=== PATIENT | female | born 1935 | race Caucasian/White ===

== ENCOUNTER → 2020-06-14 14:04 | Outpatient (BNVA) | payer MEDICARE, BC, SELFPAY | PROVIDERS: PCP Family Medicine; Visit Provider Internal Medicine | DX: I48.20 Chronic atrial fibrillation, unspecified (principal); Z51.81 Encounter for therapeutic drug level monitoring; Z79.01 Long term (current) use of anticoagulants | CPT/HCPCS: 85610 ==

== ENCOUNTER → 2020-06-28 13:38 | Outpatient (BNVA) | payer MEDICARE, BC, SELFPAY | PROVIDERS: PCP Family Medicine; Visit Provider Internal Medicine | DX: I48.20 Chronic atrial fibrillation, unspecified (principal); Z79.01 Long term (current) use of anticoagulants; Z51.81 Encounter for therapeutic drug level monitoring | CPT/HCPCS: 85610; 99211 ==

== ENCOUNTER → 2020-07-19 13:10 | Outpatient (BNVA) | payer MEDICARE, BC, SELFPAY | PROVIDERS: PCP Family Medicine; Visit Provider Internal Medicine | DX: I48.20 Chronic atrial fibrillation, unspecified (principal); Z51.81 Encounter for therapeutic drug level monitoring; Z79.01 Long term (current) use of anticoagulants | CPT/HCPCS: 85610; 99211 ==

== ENCOUNTER 2020-08-08 10:02 | Outpatient (REF) | payer MEDICARE, BC, SELFPAY ==
[2020-08-08 12:45] LABS: Glucose Urine UA NEG (NEG); Leukocyte Esterase Urine 3+ (NEG); Nitrite Urine NEG (NEG); Specific Gravity - Urine >= 1.030 (1.005-1.025); Urine Blood 2+ (NEG); Urine Ketones NEG (NEG); Urine Protein 1+ MG/DL (NEG-TRACE)
[2020-08-08 12:48] LABS: Appearance Urine CLOUDY; Color Urine YELLOW
[2020-08-08 12:59] LABS: Bacteria Urine 3+ /LPF; Mucus Urine 1+ /LPF; Squamous Epithelial Cell Urine 1+ /LPF; WBC Urine TNTC /HPF (0-4)
[2020-08-08 13:21] LABS: Creatinine Urine 93.99 mg/dL; Protein/Creatinine Ratio, Ur 0.82 (<0.2); Total Protein Urine Random 77 mg/dL (<12)
== END 2020-08-08 10:03 | disposition home or self-care (01) ==
LOC: HO.LAB 10:02
PROVIDERS: PCP Family Medicine; Visit Provider Family Medicine
DX: E11.36 Type 2 diabetes mellitus with diabetic cataract (principal)
CPT/HCPCS: 81001; 84156

== ENCOUNTER → 2020-08-16 13:05 | Outpatient (BNVA) | payer MEDICARE, BC, SELFPAY | PROVIDERS: PCP Family Medicine; Visit Provider Internal Medicine | DX: I48.20 Chronic atrial fibrillation, unspecified (principal); Z51.81 Encounter for therapeutic drug level monitoring; Z79.01 Long term (current) use of anticoagulants | CPT/HCPCS: 85610; 99211 ==

== ENCOUNTER → 2020-08-23 13:05 | Outpatient (BNVA) | payer MEDICARE, BC, SELFPAY | PROVIDERS: PCP Family Medicine; Visit Provider Internal Medicine | DX: I48.20 Chronic atrial fibrillation, unspecified (principal); Z51.81 Encounter for therapeutic drug level monitoring; Z79.01 Long term (current) use of anticoagulants | CPT/HCPCS: 85610; 99211 ==

== ENCOUNTER → 2020-09-13 13:24 | Outpatient (BNVA) | payer MEDICARE, BC, SELFPAY | PROVIDERS: PCP Family Medicine; Visit Provider Internal Medicine | DX: I48.20 Chronic atrial fibrillation, unspecified (principal); Z51.81 Encounter for therapeutic drug level monitoring; Z79.01 Long term (current) use of anticoagulants | CPT/HCPCS: 85610; 99211 ==

== ENCOUNTER → 2020-09-27 13:25 | Outpatient (BNVA) | payer MEDICARE, BC, SELFPAY | PROVIDERS: PCP Family Medicine; Visit Provider Internal Medicine | DX: Z95.2 Presence of prosthetic heart valve (principal); Z79.01 Long term (current) use of anticoagulants; Z51.81 Encounter for therapeutic drug level monitoring | CPT/HCPCS: 85610; 99211 ==

== ENCOUNTER → 2020-11-01 13:02 | Outpatient (BNVA) | payer MEDICARE, BC, SELFPAY | PROVIDERS: PCP Family Medicine; Visit Provider Internal Medicine | DX: I48.20 Chronic atrial fibrillation, unspecified (principal); Z51.81 Encounter for therapeutic drug level monitoring; Z79.01 Long term (current) use of anticoagulants | CPT/HCPCS: 85610; 99211 ==

== ENCOUNTER → 2020-11-22 13:08 | Outpatient (BNVA) | payer MEDICARE, BC, SELFPAY | PROVIDERS: PCP Family Medicine; Visit Provider Internal Medicine | DX: I48.20 Chronic atrial fibrillation, unspecified (principal); Z51.81 Encounter for therapeutic drug level monitoring; Z79.01 Long term (current) use of anticoagulants | CPT/HCPCS: 85610; 99211 ==

== ENCOUNTER → 2020-12-15 13:02 | Outpatient (BNVA) | payer MEDICARE, BC, SELFPAY | PROVIDERS: PCP Internal Medicine; Visit Provider Internal Medicine | DX: I48.20 Chronic atrial fibrillation, unspecified (principal); Z79.01 Long term (current) use of anticoagulants; Z51.81 Encounter for therapeutic drug level monitoring | CPT/HCPCS: 85610; 99211 ==

== ENCOUNTER → 2020-12-29 13:03 | Outpatient (BNVA) | payer MEDICARE, BC, SELFPAY | PROVIDERS: PCP Internal Medicine; Visit Provider Internal Medicine | DX: I48.20 Chronic atrial fibrillation, unspecified (principal); Z79.01 Long term (current) use of anticoagulants; Z51.81 Encounter for therapeutic drug level monitoring | CPT/HCPCS: 85610; 99211 ==

== ENCOUNTER → 2021-01-12 13:03 | Outpatient (BNVA) | payer MEDICARE, BC, SELFPAY | PROVIDERS: PCP Family Medicine; Visit Provider Internal Medicine | DX: I48.20 Chronic atrial fibrillation, unspecified (principal); Z79.01 Long term (current) use of anticoagulants; Z51.81 Encounter for therapeutic drug level monitoring | CPT/HCPCS: 85610; 99211 ==

== ENCOUNTER → 2021-02-03 09:24 | Outpatient (REF) | payer MEDICARE, BC, SELFPAY ==
--- NOTE | 2021-02-03 09:30 | CA_ITS ---
Transthoracic Echocardiogram Patient (Last, First, Middle): Lilliana Reyes E Gender: Female Date of : 1935 Age: 85 Procedure Date: 02/03/2021 Procedure Type: Transthoracic Echocardiogram Location: OP Height: 160.02 cm Weight: 63.96 kg BSA: 1.67 m2 Heart Rate: bpm BP: 124 / 68 mmHg [facility]: [facility]UZ Referring MD: Quang Carreon MD Symptoms: Z95.2 S/P AVR, CHRONIC AFIB I48.2 I10 HTN Study Quality: Good ECG Rhythm: Atrial Fibrillation Conclusions: - The left ventricular systolic function is normal. The visually estimated ejection fraction is between 60-65%. - A bioprosthetic aortic valve is present. The prosthetic aortic valve appears to be functioning normally. - There is moderate mitral annular calcification. There is mild mitral valve regurgitation. Findings Left Ventricle Normal left ventricular cavity size. There is normal left ventricular wall thickness. The left ventricular systolic function is normal. The visually estimated ejection fraction is between 60-65%. There is no evidence of regional wall motion abnormalities. Diastolic function is indeterminate on the basis of available data. Right Ventricle Normal right ventricular cavity size and systolic function. Atria The left atrium is mildly dilated. The right atrium is moderately dilated. Aortic Valve A bioprosthetic aortic valve is present. The prosthetic aortic valve appears to be functioning normally. The mean gradient is 6 mmHg. There is trace (trivial) aortic valve regurgitation. Mitral Valve There is moderate mitral annular calcification. There is mild mitral valve regurgitation. There is no mitral valve stenosis. Pulmonic Valve The pulmonic valve was not well visualized. Tricuspid Valve Normal tricuspid valve structure. There is mild tricuspid valve regurgitation. The pulmonary artery systolic pressure is normal. Great Vessels The aorta was not well visualized. Venous The inferior vena cava is normal in size and collapses greater than 50% with inspiration. Pericardium/Pleural There is no evidence of pericardial effusion. Prior Study Comparison No significant change compared to prior study dated: 12/16/2019. Measurements 2D Linear Measurements IVSd: 1.00 0.6-0.9/0.6-1.0 cm LVIDd: 4.09 3.9-5.3/4.2-5.9 cm LVIDd Index: 2.45 2.4-3.2/2.2-3.1 cm/m2 LVIDs: 3.14 2.0-3.6 cm LVPWd: 0.92 0.7-1.1 cm LA Diam: 4.00 2.7-3.8/3.0-4.0 cm LAIDs Index: 2.40 1.5-2.3 cm/m2 LV Mass: 153.60 67-162/88-224 g LV Mass Index: 91.97 43-95/49-115 g/m2 LVOT Diam: 1.70 3.0+(-)1.3 cm 2D Systolic Function EF 4C: 59.00 >55% EF 2C: 64.10 >55% EF BiP: 62.30 >55% Mitral Valve MV Pk E: 0.66 MV Decel Time: 170.00 E'Lateral: 8.05 E'Medial: 6.58 E/E' Med: 10.10 E/E' Lat: 8.20 PHT: 50.00 MVA PHT: 4.40 Decel [place]: 3.92 Aortic Valve AoV Pk Marcio: 1.62 AoV Mn Marcio: 1.11 AoV VTI: 0.37 AoV Pk Grad: 10.00 Aov Mn Grad: 6.00 MANI Cont.VTI: 0.85 LVOT LVOT Pk Marcio: 0.65 LVOT Mn Marcio: 0.44 LVOT VTI: 0.14 LVOT Pk Grad: 2.00 LVOT Mn Grad: 1.00 LVOT Diam: 1.70 LVOT Area: 2.27 Diastolic Function MV Pk E: 0.66 E'Medial: 6.58 E/E' Med: 10.10 E' Laterial: 8.05 E/E' Lat: 8.20 Tricuspid Valve TR Pk Marcio: 2.35 TR Pk Grad: 22.00 RA Press: 3.00 RVSP: 25.00 Updated in Other Vendor System with Status of Final Chemo Johnson MD electronically signed on 02/05/2021 12:56:40 PM with status of Final
== END ==
LOC: HO.CARD 09:24
PROVIDERS: Visit Provider Internal Medicine Cardiovascular Disease
DX: I10 Essential (primary) hypertension (principal); Z95.2 Presence of prosthetic heart valve
CPT/HCPCS: 93306

== ENCOUNTER → 2021-02-15 13:02 | Outpatient (BNVA) | payer MEDICARE, BC, SELFPAY | PROVIDERS: PCP Family Medicine; Visit Provider Internal Medicine | DX: I48.20 Chronic atrial fibrillation, unspecified (principal); Z51.81 Encounter for therapeutic drug level monitoring; Z79.01 Long term (current) use of anticoagulants | CPT/HCPCS: 85610; 99211 ==

== ENCOUNTER → 2021-02-28 13:09 | Outpatient (BNVA) | payer MEDICARE, BC, SELFPAY | PROVIDERS: PCP Family Medicine; Visit Provider Internal Medicine Cardiovascular Disease | DX: I48.20 Chronic atrial fibrillation, unspecified (principal); Z95.2 Presence of prosthetic heart valve | CPT/HCPCS: 93005; 99212 ==

== ENCOUNTER → 2021-03-16 13:01 | Outpatient (BNVA) | payer MEDICARE, BC, SELFPAY | PROVIDERS: PCP Family Medicine; Visit Provider Internal Medicine | DX: I48.20 Chronic atrial fibrillation, unspecified (principal); Z51.81 Encounter for therapeutic drug level monitoring; Z79.01 Long term (current) use of anticoagulants | CPT/HCPCS: 85610; 99211 ==

== ENCOUNTER → 2021-04-13 13:04 | Outpatient (BNVA) | payer MEDICARE, BC, SELFPAY | PROVIDERS: PCP Family Medicine; Visit Provider Internal Medicine | DX: I48.20 Chronic atrial fibrillation, unspecified (principal); Z51.81 Encounter for therapeutic drug level monitoring; Z79.01 Long term (current) use of anticoagulants | CPT/HCPCS: 85610; 99211 ==

== ENCOUNTER 2021-05-04 12:53 | Outpatient (REF) | payer MEDICARE, BC, SELFPAY ==
--- NOTE | ~2021-05-04 | MM_ITS ---
EXAMINATION: MM SCREENING DIGITAL BREAST TOMOSYNTHESIS, BILATERAL CLINICAL INFORMATION: Screening. Asymptomatic. The lifetime risk of breast cancer based on the Tyrer-Cuzick Model is 0.3%. COMPARISON: Mammography: May 02, 2020 and studies dating back to February 12, 2012 TECHNIQUE: Digital breast tomosynthesis is performed in both the craniocaudal and mediolateral oblique views along with computer-aided detection (CAD). Synthesized 2D images are generated from the tomosynthesis. FINDINGS: The breasts are almost entirely fatty (ACR BI-RADS breast composition Category a). There are no significant masses, abnormal calcifications, or other abnormalities. MM/MM tomosynthesis screening BI IMPRESSION: There are no significant changes from prior study. ASSESSMENT: BI-RADS 1: Negative RECOMMENDATION: Routine annual mammography screening. This patient's information was entered into a reminder system with a target due date for their next mammogram.
== END 2021-05-04 12:54 | disposition home or self-care (01) ==
LOC: HO.MAMMO 12:53
PROVIDERS: Visit Provider Family Medicine
DX: Z12.31 Encounter for screening mammogram for malignant neoplasm of breast (principal)
CPT/HCPCS: 77063; 77067

== ENCOUNTER → 2021-05-11 13:04 | Outpatient (BNVA) | payer MEDICARE, BC, SELFPAY | PROVIDERS: PCP Family Medicine; Visit Provider Internal Medicine | DX: I48.20 Chronic atrial fibrillation, unspecified (principal); Z51.81 Encounter for therapeutic drug level monitoring; Z79.01 Long term (current) use of anticoagulants | CPT/HCPCS: 85610; 99211 ==

== ENCOUNTER → 2021-06-08 13:06 | Outpatient (BNVA) | payer MEDICARE, BC, SELFPAY | PROVIDERS: PCP Family Medicine; Visit Provider Internal Medicine | DX: I48.20 Chronic atrial fibrillation, unspecified (principal); Z51.81 Encounter for therapeutic drug level monitoring; Z79.01 Long term (current) use of anticoagulants | CPT/HCPCS: 85610; 99211 ==

== ENCOUNTER → 2021-06-29 13:09 | Outpatient (BNVA) | payer MEDICARE, BC, SELFPAY | PROVIDERS: PCP Family Medicine; Visit Provider Internal Medicine | DX: I48.20 Chronic atrial fibrillation, unspecified (principal); Z51.81 Encounter for therapeutic drug level monitoring; Z79.01 Long term (current) use of anticoagulants | CPT/HCPCS: 85610; 99211 ==

== ENCOUNTER → 2021-07-27 12:54 | Outpatient (BNVA) | payer MEDICARE, BC, SELFPAY | PROVIDERS: PCP Family Medicine; Visit Provider Internal Medicine | DX: I48.20 Chronic atrial fibrillation, unspecified (principal); Z51.81 Encounter for therapeutic drug level monitoring; Z79.01 Long term (current) use of anticoagulants | CPT/HCPCS: 85610; 99211 ==

== ENCOUNTER → 2021-08-10 13:32 | Outpatient (BNVA) | payer MEDICARE, BC, SELFPAY | PROVIDERS: PCP Family Medicine; Visit Provider Internal Medicine | DX: I48.20 Chronic atrial fibrillation, unspecified (principal); Z51.81 Encounter for therapeutic drug level monitoring; Z79.01 Long term (current) use of anticoagulants | CPT/HCPCS: 85610; 99211 ==

== ENCOUNTER → 2021-08-24 13:01 | Outpatient (BNVA) | payer MEDICARE, BC, SELFPAY | PROVIDERS: PCP Family Medicine; Visit Provider Internal Medicine | DX: I48.20 Chronic atrial fibrillation, unspecified (principal); Z51.81 Encounter for therapeutic drug level monitoring; Z79.01 Long term (current) use of anticoagulants | CPT/HCPCS: 85610; 99211 ==

== ENCOUNTER → 2021-09-14 13:04 | Outpatient (BNVA) | payer MEDICARE, BC, SELFPAY | PROVIDERS: PCP Family Medicine; Visit Provider Internal Medicine | DX: I48.20 Chronic atrial fibrillation, unspecified (principal); Z51.81 Encounter for therapeutic drug level monitoring; Z79.01 Long term (current) use of anticoagulants | CPT/HCPCS: 85610; 99211 ==

== ENCOUNTER → 2021-10-05 13:05 | Outpatient (BNVA) | payer MEDICARE, BC, SELFPAY | PROVIDERS: PCP Family Medicine; Visit Provider Internal Medicine | DX: I48.20 Chronic atrial fibrillation, unspecified (principal); Z51.81 Encounter for therapeutic drug level monitoring; Z79.01 Long term (current) use of anticoagulants | CPT/HCPCS: 85610; 99211 ==

== ENCOUNTER → 2021-11-02 13:01 | Outpatient (BNVA) | payer MEDICARE, BC, SELFPAY | PROVIDERS: PCP Family Medicine; Visit Provider Internal Medicine | DX: I48.20 Chronic atrial fibrillation, unspecified (principal); Z51.81 Encounter for therapeutic drug level monitoring; Z79.01 Long term (current) use of anticoagulants | CPT/HCPCS: 85610; 99211 ==

== ENCOUNTER → 2021-11-16 13:08 | Outpatient (BNVA) | payer MEDICARE, BC, SELFPAY | PROVIDERS: PCP Family Medicine; Visit Provider Internal Medicine | DX: I48.20 Chronic atrial fibrillation, unspecified (principal); Z51.81 Encounter for therapeutic drug level monitoring; Z79.01 Long term (current) use of anticoagulants | CPT/HCPCS: 85610; 99211 ==

== ENCOUNTER → 2021-11-30 14:15 | Outpatient (BNVA) | payer MEDICARE, BC, SELFPAY | PROVIDERS: PCP Family Medicine; Visit Provider Internal Medicine | DX: I48.20 Chronic atrial fibrillation, unspecified (principal); Z51.81 Encounter for therapeutic drug level monitoring; Z79.01 Long term (current) use of anticoagulants | CPT/HCPCS: 85610; 99211 ==

== ENCOUNTER → 2021-12-21 14:09 | Outpatient (BNVA) | payer MEDICARE, BC, SELFPAY | PROVIDERS: PCP Family Medicine; Visit Provider Internal Medicine | DX: I48.20 Chronic atrial fibrillation, unspecified (principal); Z79.01 Long term (current) use of anticoagulants; Z51.81 Encounter for therapeutic drug level monitoring | CPT/HCPCS: 85610; 99211 ==

== ENCOUNTER → 2022-01-04 14:00 | Outpatient (BNVA) | payer MEDICARE, BC, SELFPAY | PROVIDERS: PCP Family Medicine; Visit Provider Internal Medicine | DX: I48.0 Paroxysmal atrial fibrillation (principal); Z79.01 Long term (current) use of anticoagulants; Z51.81 Encounter for therapeutic drug level monitoring | CPT/HCPCS: 85610; 99211 ==

== ENCOUNTER → 2022-01-18 13:43 | Outpatient (BNVA) | payer MEDICARE, BC, SELFPAY | PROVIDERS: PCP Family Medicine; Visit Provider Internal Medicine | DX: I48.20 Chronic atrial fibrillation, unspecified (principal); Z79.01 Long term (current) use of anticoagulants; Z51.81 Encounter for therapeutic drug level monitoring | CPT/HCPCS: 85610; 99211 ==

== ENCOUNTER → 2022-02-01 13:36 | Outpatient (BNVA) | payer MEDICARE, BC, SELFPAY | PROVIDERS: PCP Family Medicine; Visit Provider Internal Medicine | DX: I48.20 Chronic atrial fibrillation, unspecified (principal); Z79.01 Long term (current) use of anticoagulants; Z51.81 Encounter for therapeutic drug level monitoring | CPT/HCPCS: 85610; 99211 ==

== ENCOUNTER → 2022-02-08 13:34 | Outpatient (REF) | payer MEDICARE, BC, SELFPAY ==
--- NOTE | 2022-02-08 13:38 | CA_ITS ---
Transthoracic Echocardiogram Patient (Last, First, Middle): Lilliana Reyes E Gender: Female Date of : 1935 Age: 86 Procedure Date: 02/08/2022 Procedure Type: Transthoracic Echocardiogram Location: OP Height: 160.02 cm Weight: 63.96 kg BSA: 1.67 m2 Heart Rate: bpm BP: 132 / 64 mmHg Welding Rod Coater: MARY Referring MD: Quang Carreon MD Air Route Traffic Controller: Quang Carreon MD Symptoms: Z95.2 - Presence of prosthetic heart valve Study Quality: Adequate ECG Rhythm: Atrial Fibrillation Conclusions: - 1. Normal LV systolic function 2. Biatrial enlargement right greater than left 3. Normally function bioprosthetic aortic valve with mild periprosthetic aortic regurgitation 4. Normal RV systolic pressure 5. No gross pericardial effusion Findings Left Ventricle Normal left ventricular size, thickness, and systolic function. The visually estimated ejection fraction is between 65-70%. Diastolic function is indeterminate on the basis of available data. Right Ventricle Normal right ventricular cavity size and systolic function. Atria The left atrium is mildly dilated. Interatrial shunt cannot be excluded. The right atrium is moderately dilated. Aortic Valve A bioprosthetic aortic valve is present. The prosthetic aortic valve appears to be functioning normally. The mean gradient is 6 mmHg. There is mild aortic valve regurgitation. The aortic valve regurgitation jet is eccentric. The regurgitation appears to be richelle-prosthetic. Mitral Valve There is mild anterior and posterior mitral leaflet thickening. There is mild mitral annular calcification. There is trace mitral valve regurgitation. Pulmonic Valve The pulmonic valve is likely normal. There is trace pulmonic valve regurgitation. Tricuspid Valve Normal tricuspid valve structure. There is mild tricuspid valve regurgitation. The right ventricular systolic pressure is normal. The right ventricular systolic pressure is 28 mmHg. Normal right atrial pressure. There is no evidence of pulmonary hypertension. Great Vessels All visible segments of the aorta are normal in size. The pulmonary artery was not well visualized. Venous The inferior vena cava is normal in size and collapses greater than 50% with inspiration. Pericardium/Pleural There is no evidence of pericardial effusion. Prior Study Comparison Changes noted compared to prior study dated: 02/03/2021. Mild aortic regurgitation is noted Measurements 2D Linear Measurements IVSd: 0.89 0.6-0.9/0.6-1.0 cm LVIDd: 3.79 3.9-5.3/4.2-5.9 cm LVIDd Index: 2.27 2.4-3.2/2.2-3.1 cm/m2 LVIDs: 2.49 2.0-3.6 cm LVPWd: 0.90 0.7-1.1 cm LA Diam: 3.60 2.7-3.8/3.0-4.0 cm LAIDs Index: 2.16 1.5-2.3 cm/m2 LV Mass: 123.30 67-162/88-224 g LV Mass Index: 73.83 43-95/49-115 g/m2 LVOT Diam: 2.00 3.0+(-)1.3 cm 2D Systolic Function EF 4C: 50.50 >55% EF 2C: 77.60 >55% EF BiP: 66.50 >55% Mitral Valve MV Pk E: 1.05 Aortic Valve AoV Pk Marcio: 1.64 AoV Mn Marcio: 1.15 AoV VTI: 0.31 AoV Pk Grad: 11.00 Aov Mn Grad: 6.00 MANI Cont.VTI: 1.53 AI Pk Marcio: 3.06 AI Pershing: 1.98 LVOT LVOT Pk Marcio: 0.75 LVOT Mn Marcio: 0.54 LVOT VTI: 0.15 LVOT Pk Grad: 2.00 LVOT Mn Grad: 1.00 LVOT Diam: 2.00 LVOT Area: 3.14 Diastolic Function MV Pk E: 1.05 Right Ventricle TAPSE (mm): 11.30 TVS' Marcio: 7.80 Tricuspid Valve TR Pk Marcio: 2.50 TR Pk Grad: 25.00 RA Press: 3.00 RVSP: 28.00 Great Vessels Aorta Ao Asc: 2.10 2.1-3.4 cm Pulmonary Valve PV Pk Marcio: 0.61 Peak PV Grad: 1.00 Updated in Other Vendor System with Status of Final Quang Carreon MD electronically signed on 02/09/2022 4:10:54 PM with status of Final
== END ==
LOC: HO.CARD 13:34
PROVIDERS: Visit Provider Internal Medicine Cardiovascular Disease
DX: Z95.2 Presence of prosthetic heart valve (principal)
CPT/HCPCS: 93306

== ENCOUNTER → 2022-02-12 13:45 | Outpatient (BNVA) | payer MEDICARE, BC, SELFPAY | PROVIDERS: PCP Family Medicine; Referring Provider Family Medicine; Visit Provider Internal Medicine Cardiovascular Disease | DX: I48.20 Chronic atrial fibrillation, unspecified (principal); Z95.2 Presence of prosthetic heart valve; Z79.01 Long term (current) use of anticoagulants; Z79.899 Other long term (current) drug therapy | CPT/HCPCS: 93005; 99212 ==

== ENCOUNTER → 2022-02-22 13:47 | Outpatient (BNVA) | payer MEDICARE, BC, SELFPAY | PROVIDERS: PCP Family Medicine; Visit Provider Internal Medicine | DX: I48.20 Chronic atrial fibrillation, unspecified (principal); Z79.01 Long term (current) use of anticoagulants; Z51.81 Encounter for therapeutic drug level monitoring | CPT/HCPCS: 85610; 99211 ==

== ENCOUNTER → 2022-03-22 13:28 | Outpatient (BNVA) | payer MEDICARE, BC, SELFPAY | PROVIDERS: PCP Family Medicine; Visit Provider Internal Medicine | DX: I48.20 Chronic atrial fibrillation, unspecified (principal); Z51.81 Encounter for therapeutic drug level monitoring; Z79.01 Long term (current) use of anticoagulants | CPT/HCPCS: 85610; 99211 ==

== ENCOUNTER → 2022-04-20 13:41 | Outpatient (BNVA) | payer MEDICARE, BC, SELFPAY | PROVIDERS: PCP Family Medicine; Visit Provider Internal Medicine | DX: I48.20 Chronic atrial fibrillation, unspecified (principal); Z79.01 Long term (current) use of anticoagulants; Z51.81 Encounter for therapeutic drug level monitoring | CPT/HCPCS: 85610; 99211 ==

== ENCOUNTER → 2022-04-27 13:53 | Outpatient (BNVA) | payer MEDICARE, BC, SELFPAY | PROVIDERS: PCP Family Medicine; Visit Provider Internal Medicine | DX: I48.20 Chronic atrial fibrillation, unspecified (principal); Z79.01 Long term (current) use of anticoagulants; Z51.81 Encounter for therapeutic drug level monitoring | CPT/HCPCS: 85610; 99211 ==

== ENCOUNTER → 2022-05-04 13:36 | Outpatient (BNVA) | payer MEDICARE, BC, SELFPAY | PROVIDERS: PCP Family Medicine; Visit Provider Internal Medicine | DX: I48.20 Chronic atrial fibrillation, unspecified (principal); Z79.01 Long term (current) use of anticoagulants; Z51.81 Encounter for therapeutic drug level monitoring | CPT/HCPCS: 85610; 99211 ==

== ENCOUNTER → 2022-05-11 13:19 | Outpatient (BNVA) | payer MEDICARE, BC, SELFPAY | PROVIDERS: PCP Family Medicine; Visit Provider Internal Medicine | DX: I48.20 Chronic atrial fibrillation, unspecified (principal); Z79.01 Long term (current) use of anticoagulants; Z51.81 Encounter for therapeutic drug level monitoring | CPT/HCPCS: 85610; 99211 ==

== ENCOUNTER → 2022-05-17 13:57 | Outpatient (BNVA) | payer MEDICARE, BC, SELFPAY | PROVIDERS: PCP Family Medicine; Visit Provider Internal Medicine | DX: I48.20 Chronic atrial fibrillation, unspecified (principal); Z79.01 Long term (current) use of anticoagulants; Z51.81 Encounter for therapeutic drug level monitoring | CPT/HCPCS: 85610 ==

== ENCOUNTER 2022-05-18 13:34 | Outpatient (REF) | payer MEDICARE, BC, SELFPAY ==
--- NOTE | ~2022-05-18 | MM_ITS ---
EXAMINATION: MM SCREENING DIGITAL BREAST TOMOSYNTHESIS, BILATERAL CLINICAL INFORMATION: Screening. Asymptomatic. COMPARISON: Mammography: 05/04/2021, 05/02/2020, 04/21/2018 TECHNIQUE: Digital breast tomosynthesis is performed in both the craniocaudal and mediolateral oblique views along with computer-aided detection (CAD). Synthesized 2D images are generated from the tomosynthesis. FINDINGS: There are scattered areas of fibroglandular density (ACR BI-RADS breast composition Category b). There are no significant masses, abnormal calcifications, or other abnormalities. No developing density or architectural abnormality. Biopsy clip marker again noted mid lower inner right breast. There are scattered benign isolated and grouped coarse and vascular and round calcifications again seen. No significant changes. MM/MM tomosynthesis screening BI IMPRESSION: No mammographic evidence of malignancy. ASSESSMENT: BI-RADS 2: Benign RECOMMENDATION: Routine annual mammography screening. This patient's information was entered into a reminder system with a target due date for their next mammogram.
== END 2022-05-18 13:35 | disposition home or self-care (01) ==
LOC: HO.MAMMO 13:34
PROVIDERS: Visit Provider Family Medicine
DX: Z12.31 Encounter for screening mammogram for malignant neoplasm of breast (principal)
CPT/HCPCS: 77063; 77067

== ENCOUNTER → 2022-05-25 14:14 | Outpatient (BNVA) | payer MEDICARE, BC, SELFPAY | PROVIDERS: PCP Family Medicine; Visit Provider Internal Medicine | DX: I48.20 Chronic atrial fibrillation, unspecified (principal); Z79.01 Long term (current) use of anticoagulants; Z51.81 Encounter for therapeutic drug level monitoring | CPT/HCPCS: 85610; 99211 ==

== ENCOUNTER → 2022-06-08 14:15 | Outpatient (BNVA) | payer MEDICARE, BC, SELFPAY | PROVIDERS: PCP Family Medicine; Visit Provider Internal Medicine | DX: I48.20 Chronic atrial fibrillation, unspecified (principal); Z79.01 Long term (current) use of anticoagulants; Z51.81 Encounter for therapeutic drug level monitoring | CPT/HCPCS: 85610; 99211 ==

== ENCOUNTER → 2022-06-29 14:10 | Outpatient (BNVA) | payer MEDICARE, BC, SELFPAY | PROVIDERS: PCP Family Medicine; Visit Provider Internal Medicine | DX: I48.20 Chronic atrial fibrillation, unspecified (principal); Z79.01 Long term (current) use of anticoagulants; Z51.81 Encounter for therapeutic drug level monitoring | CPT/HCPCS: 85610; 99211 ==

== ENCOUNTER → 2022-07-27 14:05 | Outpatient (BNVA) | payer MEDICARE, BC, SELFPAY | PROVIDERS: PCP Family Medicine; Visit Provider Internal Medicine | DX: I48.20 Chronic atrial fibrillation, unspecified (principal); Z79.01 Long term (current) use of anticoagulants; Z51.81 Encounter for therapeutic drug level monitoring | CPT/HCPCS: 85610; 99211 ==

== ENCOUNTER → 2022-08-24 14:00 | Outpatient (BNVA) | payer MEDICARE, BC, SELFPAY | PROVIDERS: PCP Family Medicine; Visit Provider Internal Medicine | DX: I48.20 Chronic atrial fibrillation, unspecified (principal); Z79.01 Long term (current) use of anticoagulants; Z51.81 Encounter for therapeutic drug level monitoring | CPT/HCPCS: 85610; 99211 ==

== ENCOUNTER → 2022-09-20 14:09 | Outpatient (BNVA) | payer MEDICARE, BC, SELFPAY | PROVIDERS: PCP Family Medicine; Visit Provider Internal Medicine | DX: I48.20 Chronic atrial fibrillation, unspecified (principal); Z79.01 Long term (current) use of anticoagulants; Z51.81 Encounter for therapeutic drug level monitoring | CPT/HCPCS: 85610; 99211 ==

== ENCOUNTER → 2022-10-25 14:09 | Outpatient (BNVA) | payer MEDICARE, BC, SELFPAY | PROVIDERS: PCP Family Medicine; Visit Provider Internal Medicine | DX: I48.20 Chronic atrial fibrillation, unspecified (principal); Z51.81 Encounter for therapeutic drug level monitoring; Z79.01 Long term (current) use of anticoagulants | CPT/HCPCS: 85610; 99211 ==

== ENCOUNTER → 2022-11-29 13:56 | Outpatient (BNVA) | payer MEDICARE, BC, SELFPAY | PROVIDERS: PCP Family Medicine; Visit Provider Internal Medicine | DX: I48.20 Chronic atrial fibrillation, unspecified (principal); Z79.01 Long term (current) use of anticoagulants; Z51.81 Encounter for therapeutic drug level monitoring | CPT/HCPCS: 85610; 99211 ==

== ENCOUNTER → 2022-12-27 13:29 | Outpatient (BNVA) | payer MEDICARE, BC, SELFPAY | PROVIDERS: PCP Family Medicine; Visit Provider Internal Medicine | DX: I48.20 Chronic atrial fibrillation, unspecified (principal); Z79.01 Long term (current) use of anticoagulants; Z51.81 Encounter for therapeutic drug level monitoring | CPT/HCPCS: 85610; 99211 ==

== ENCOUNTER → 2023-01-11 13:38 | Outpatient (BNVA) | payer MEDICARE, BC, SELFPAY | PROVIDERS: PCP Family Medicine; Visit Provider Internal Medicine | DX: I48.20 Chronic atrial fibrillation, unspecified (principal); Z79.01 Long term (current) use of anticoagulants; Z51.81 Encounter for therapeutic drug level monitoring | CPT/HCPCS: 85610; 99211 ==

== ENCOUNTER → 2023-01-18 14:35 | Outpatient (BNVA) | payer MEDICARE, BC, SELFPAY | PROVIDERS: PCP Family Medicine; Visit Provider Internal Medicine | DX: I48.20 Chronic atrial fibrillation, unspecified (principal); Z79.01 Long term (current) use of anticoagulants; Z51.81 Encounter for therapeutic drug level monitoring | CPT/HCPCS: 85610; 99211 ==

== ENCOUNTER → 2023-01-31 13:39 | Outpatient (BNVA) | payer MEDICARE, BC, SELFPAY | PROVIDERS: PCP Family Medicine; Visit Provider Internal Medicine | DX: I48.20 Chronic atrial fibrillation, unspecified (principal); Z79.01 Long term (current) use of anticoagulants; Z51.81 Encounter for therapeutic drug level monitoring | CPT/HCPCS: 85610; 99211 ==

== ENCOUNTER → 2023-02-01 13:52 | Outpatient (REF) | payer MEDICARE, BC, SELFPAY ==
--- NOTE | 2023-02-01 13:58 | CA_ITS ---
Transthoracic Echocardiogram Amended Patient (Last, First, Middle): Lilliana Reyes E Gender: Female Date of : 1935 Age: 87 Procedure Date: 02/01/2023 Procedure Type: Transthoracic Echocardiogram Location: OP Height: 190.5 cm Weight: 63.96 kg BSA: 1.89 m2 Heart Rate: bpm BP: 132 / 80 mmHg Director Of Student Aid: Referring MD: Quang Carreon MD Symptoms: Z95.2 - Presence of prosthetic heart valve TAVR Study Quality: Fair ECG Rhythm: Atrial Fibrillation Conclusions: - The left ventricular systolic function is normal. The calculated ejection fraction is 56% by biplane method. - A bioprosthetic aortic valve is present. The prosthetic aortic valve appears to be functioning normally. Findings Left Ventricle Normal left ventricular cavity size. The left ventricular systolic function is normal. The calculated ejection fraction is 56% by biplane method. There is no evidence of regional wall motion abnormalities. Diastolic function is indeterminate on the basis of available data. There is mild septal asymmetric hypertrophy. Right Ventricle Normal right ventricular cavity size and systolic function. Atria The left atrium is normal in size. The right atrium is moderately dilated. Aortic Valve A bioprosthetic aortic valve is present. The prosthetic aortic valve appears to be functioning normally. There is trace (trivial) aortic valve regurgitation. (suspect para-valvular). Mitral Valve The mitral valve appears normal. There is mild mitral annular calcification. There is mild mitral valve regurgitation. There is no mitral valve stenosis. Pulmonic Valve The pulmonic valve is likely normal. There is trace pulmonic valve regurgitation. Tricuspid Valve Normal tricuspid valve structure. There is mild tricuspid valve regurgitation. Mild pulmonary hypertension is present. Great Vessels The aorta was not well visualized. Venous The inferior vena cava is normal in size and collapses greater than 50% with inspiration. Pericardium/Pleural There is no evidence of pericardial effusion. Prior Study Comparison No significant change compared to prior study dated: 02/08/2022. Measurements 2D Linear Measurements IVSd: 1.08 0.6-0.9/0.6-1.0 cm LVIDd: 3.67 3.9-5.3/4.2-5.9 cm LVIDd Index: 1.94 2.4-3.2/2.2-3.1 cm/m2 LVIDs: 2.51 2.0-3.6 cm LVPWd: 0.96 0.7-1.1 cm Ao Root: 2.30 2.1-3.5 cm LA Diam: 3.60 2.7-3.8/3.0-4.0 cm LAIDs Index: 1.90 1.5-2.3 cm/m2 LV Mass: 141.80 67-162/88-224 g LV Mass Index: 75.03 43-95/49-115 g/m2 LVOT Diam: 2.00 3.0+(-)1.3 cm 2D Volumes LA Vol: 28.10 2D Systolic Function EF 4C: 59.90 >55% EF 2C: 51.30 >55% EF BiP: 56.30 >55% Mitral Valve MV VTI: 0.17 MV Pk Marcio: 0.88 MV Mn Marcio: 0.50 MV Pk Grad: 3.00 MV Mn Grad: 1.00 MV Pk E: 1.00 MV Decel Time: 154.00 E'Lateral: 10.80 E'Medial: 6.42 E/E' Med: 15.50 E/E' Lat: 9.20 PHT: 45.00 MVA PHT: 4.89 MVA Continuity: 3.08 Decel Dawson: 6.47 Aortic Valve AoV Pk Marcio: 1.68 AoV Mn Marcio: 1.07 AoV VTI: 0.36 AoV Pk Grad: 11.00 Aov Mn Grad: 6.00 MANI Cont.VTI: 1.47 LVOT LVOT Pk Marcio: 0.70 LVOT Mn Marcio: 0.45 LVOT VTI: 0.17 LVOT Pk Grad: 2.00 LVOT Mn Grad: 1.00 LVOT Diam: 2.00 LVOT Area: 3.14 Diastolic Function MV Pk E: 1.00 E'Medial: 6.42 E/E' Med: 15.50 E' Laterial: 10.80 E/E' Lat: 9.20 Right Ventricle TAPSE (mm): 31.00 Tricuspid Valve TR Pk Marcio: 3.01 TR Pk Grad: 36.00 Great Vessels Aorta Ao Root-2D: 2.30 2.0-3.7 cm Pulmonary Valve PV Pk Marcio: 0.79 Peak PV Grad: 2.00 Updated in Other Vendor System with Status of Final Chemo Johnson MD electronically signed on 02/03/2023 12:29:10 PM with status of Final
== END ==
LOC: HO.CARD 13:52
PROVIDERS: PCP Family Medicine; Visit Provider Internal Medicine Cardiovascular Disease
DX: Z95.2 Presence of prosthetic heart valve (principal)
CPT/HCPCS: 93306

== ENCOUNTER → 2023-02-15 13:45 | Outpatient (BNVA) | payer MEDICARE, BC, SELFPAY | PROVIDERS: PCP Family Medicine; Visit Provider Internal Medicine | DX: I48.20 Chronic atrial fibrillation, unspecified (principal); Z79.01 Long term (current) use of anticoagulants; Z51.81 Encounter for therapeutic drug level monitoring | CPT/HCPCS: 85610; 99211 ==

== ENCOUNTER → 2023-02-21 13:55 | Outpatient (BNVA) | payer MEDICARE, BC, SELFPAY | PROVIDERS: PCP Family Medicine; Referring Provider Family Medicine; Visit Provider Internal Medicine Cardiovascular Disease | DX: I48.20 Chronic atrial fibrillation, unspecified (principal); Z95.2 Presence of prosthetic heart valve | CPT/HCPCS: 93005; 99212 ==

== ENCOUNTER → 2023-02-22 13:59 | Outpatient (BNVA) | payer MEDICARE, BC, SELFPAY | PROVIDERS: PCP Family Medicine; Visit Provider Internal Medicine | DX: I48.20 Chronic atrial fibrillation, unspecified (principal); Z79.01 Long term (current) use of anticoagulants; Z51.81 Encounter for therapeutic drug level monitoring | CPT/HCPCS: 85610; 99211 ==

== ENCOUNTER 2023-05-31 14:57 | Outpatient (REF) | payer MEDICARE, BC, SELFPAY ==
--- NOTE | ~2023-05-31 | MM_ITS ---
EXAMINATION: MM SCREENING DIGITAL BREAST TOMOSYNTHESIS, BILATERAL CLINICAL INFORMATION: Screening. Asymptomatic. COMPARISON: Mammography: This study is compared with prior exams dating back to 2017. TECHNIQUE: Digital breast tomosynthesis is performed in both the craniocaudal and mediolateral oblique views along with computer-aided detection (CAD). Synthesized 2D images are generated from the tomosynthesis. FINDINGS: There are scattered areas of fibroglandular density (ACR BI-RADS breast composition Category b). There are no significant masses, abnormal calcifications, or other abnormalities. There are scattered benign calcifications in each breast. There is a tissue marker in the right breast from prior benign percutaneous biopsy. MM/MM tomosynthesis screening BI IMPRESSION: No mammographic evidence of malignancy. ASSESSMENT: BI-RADS BI-RADS 2 - Benign Findings RECOMMENDATION: Routine annual mammography screening. 1 year F/U This examination should not preclude the clinical evaluation of a suspicious palpable abnormality. This patient's information was entered into a reminder system with a target due date for their next mammogram.
== END 2023-05-31 14:58 | disposition home or self-care (01) ==
LOC: HO.MAMMO 14:57
PROVIDERS: PCP Family Medicine; Visit Provider Family Medicine
DX: Z12.31 Encounter for screening mammogram for malignant neoplasm of breast (principal)
CPT/HCPCS: 77063; 77067

== ENCOUNTER → 2023-05-31 15:15 | Outpatient (BNV) | payer MEDICARE, BC, SELFPAY | PROVIDERS: PCP Family Medicine; Visit Provider Radiology Diagnostic Radiology | DX: Z12.31 Encounter for screening mammogram for malignant neoplasm of breast (principal) | CPT/HCPCS: 77063; 77067 ==

== ENCOUNTER 2023-06-11 17:02 | Inpatient (IN) | payer MEDICARE, BC, SELFPAY ==
--- NOTE | ~2023-06-11 | XR_ITS ---
EXAMINATION: XR CHEST CLINICAL INFORMATION: Cough. COMPARISON: Chest radiograph dated 06/16/2012. TECHNIQUE: A frontal view of the chest was obtained. FINDINGS: The heart, great vessels, pulmonary vasculature and mediastinum are normal. A TAVR stent is noted. The lungs show no focal infiltrate, effusion or pneumothorax. There is bilateral bronchiolar wall thickening. There is no acute osseous abnormality. XR/XR chest 1V IMPRESSION: 1. No focal infiltrate or congestive heart failure is seen. 2. There is bilateral bronchiolar wall thickening, which can be associated with acute bronchiolitis or reactive airways disease.
--- NOTE | ~2023-06-11 | CT_ITS ---
EXAMINATION: CT ABDOMEN AND PELVIS WITHOUT CONTRAST CLINICAL INFORMATION: Hematemesis COMPARISON: None available. TECHNIQUE: Multidetector volumetric imaging was performed from the superior aspect of the liver through the pubic symphysis. Sagittal and coronal reformatted images were obtained on the technologist's workstation. This CT examination was performed using dose optimization techniques as appropriate, variously including the following: *Automated exposure control *Adjustment of mA and/or kV according to patient size (this includes techniques or standardized protocols for targeted exams where dose is matched to indication/reason for exam; i.e. extremities or head) *Use of iterative reconstruction technique DLP: 587 mGy-cm FINDINGS: Patient is status post aortic valve repair. LUNG BASES: The visualized lung bases are unremarkable. LIVER, GALLBLADDER, AND BILIARY TREE: The liver is normal in size, shape, and attenuation. No focal hepatic lesion or biliary ductal dilatation is present. There is cholelithiasis without evidence of cholecystitis. CBD is not dilated. There is no evidence of choledocholithiasis. PANCREAS: Unremarkable. SPLEEN: Unremarkable. ADRENAL GLANDS: There is left adrenal gland hypertrophy. KIDNEYS AND URETERS: Right kidney is unremarkable. Left kidney revealed amorphous calcification in the upper pole of left kidney possibly complex cyst. Correlate with renal ultrasound. BLADDER: Urinary bladder is well distended without masses or calcifications seen. GASTROINTESTINAL TRACT: Appendix is visualized, normal. Small bowel loops are unremarkable. There is small hiatal hernia. Loops of colon aren't distended by fluid. Scattered diverticula seen in the sigmoid and there is moderate amount of retained feces in the rectum. ABDOMINAL WALL: No significant hernia is appreciated. LYMPH NODES: Normal. VASCULAR: Abdominal aorta is calcified but not dilated. PELVIC VISCERA: Unremarkable. OSSEOUS STRUCTURES: Diffuse osteopenia and compression deformity of L4 vertebral body. There are multilevel degenerative changes. The facets arthropathy seen on the multiple levels. Pelvic bones are unremarkable. CT/CT abdomen pelvis wo IV con IMPRESSION: 1. Cholelithiasis without cholecystitis. 2. Left adrenal gland hypertrophy. 3. Amorphous calcification in the upper pole of left kidney, correlate with renal ultrasound. 4. Fluid-filled colon without evidence of obstruction. 5. Diverticulosis without diverticulitis. 6. Compression deformity of L4 vertebral body. Fleischner guidelines were followed.
--- NOTE | ~2023-06-11 | CT_ITS ---
EXAMINATION: CT HEAD WITHOUT CONTRAST CLINICAL INFORMATION: Headache status-post fall; Eliquis therapy. COMPARISON: None available. TECHNIQUE: Contiguous axial imaging was performed from the skull base to vertex without intravenous administration of contrast. Multiplanar reformatted images are submitted. This CT examination was performed using dose optimization techniques as appropriate, variously including the following: *Automated exposure control *Adjustment of mA and/or kV according to patient size (this includes techniques or standardized protocols for targeted exams where dose is matched to indication/reason for exam; i.e. extremities or head) *Use of iterative reconstruction technique DLP: A 85 mGy-cm (head and cervical spine) FINDINGS: There is no acute intracranial hemorrhage or evidence of territorial infarction. No abnormal mass effect or midline shift is seen. Hunter to white matter differentiation is well preserved. There is no abnormal attenuation within the brain parenchyma. The ventricles and sulci show age-appropriate enlargement. No extra-axial fluid collections are identified. The calvarium is intact, without fracture. There are scalp calcifications, one towards the posterior rightward vertex measuring 7 mm. This may be related to an old epidermal inclusion cyst, and it should be managed on a clinical basis. The middle ear cavity and mastoid air cells are clear. There is bilateral ethmoid and sphenoid sinus chamber mucosal thickening. CT/CT cervical spine wo IV con IMPRESSION: 1. No acute intracranial pathology. 2. There is paranasal sinusitis. EXAMINATION: CT CERVICAL SPINE WITHOUT CONTRAST CLINICAL INFORMATION: Pain status-post fall. COMPARISON: None available. TECHNIQUE: Contiguous axial imaging was performed through the cervical spine without intravenous administration of contrast. Multiplanar reformatted images are submitted. This CT examination was performed using dose optimization techniques as appropriate, variously including the following: *Automated exposure control *Adjustment of mA and/or kV according to patient size (this includes techniques or standardized protocols for targeted exams where dose is matched to indication/reason for exam; i.e. extremities or head) *Use of iterative reconstruction technique DLP: As above FINDINGS: Vertebral body heights are normal. There are multi-level degenerative disc calcifications. At C3-C4, there is mild posterior disc space narrowing. At C5-C6 and C6-C7, there is moderately severe disc space narrowing. At C7-T1, there is a 3 mm anterolisthesis. At T2-T3, there is mild anterior disc space narrowing. No acute fracture or spondylolisthesis is seen. The posterior elements are intact. There is multi-level facet arthropathy. There is no prevertebral soft tissue swelling. The dens is intact. There is degenerative change of the atlantoaxial joint. The bilateral lung apices are clear. IMPRESSION: 1. No acute fracture or spondylolisthesis is seen. 2. 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 Degenerative disc disease is most pronounced at C5-C6 and C6-C7, where it is moderately severe. Fleischner guidelines were followed.
--- NOTE | 2023-06-11 17:43 | ECG_ITS ---
Test Reason : syncope Blood Pressure : / mmHG Vent. Rate : 135 BPM Atrial Rate : 000 BPM P-R Int : 000 ms QRS Dur : 090 ms QT Int : 316 ms P-R-T Axes : 000 -30 148 degrees QTc Int : 474 ms Poor data quality, interpretation may be adversely affected Atrial fibrillation with rapid ventricular response with premature ventricular or aberrantly conducted complexes Left axis deviation Minimal voltage criteria for LVH, may be normal variant ( [place] product ) Anterior infarct , age undetermined ST & T wave abnormality, consider lateral ischemia Abnormal ECG When compared with ECG of 16-JUN-2012 15:38, ST no longer depressed in Anterolateral leads Nonspecific T wave abnormality, improved in Inferior leads T wave inversion less evident in Anterolateral leads Vent. rate has increased Referred By: Deandra Pandya Electronically Signed By:EMMA MIDDLETON
[2023-06-11 18:10] VITALS: BP 105/48; BP 113/74; PULSE 129; PULSE 162; RESP 21; TEMP 36.6; O2SAT 95; O2SAT 96; BMI 23.7
[2023-06-11 18:12] LABS: MANUAL DIFF FLAG NO
[2023-06-11] MEDS: Metoprolol Tartrate 5 MG/5 ML VIAL 2.5 MG IVPUSH ×2 (18:25→22:19)
[2023-06-11 18:29] LABS: Alanine Aminotransferase 23 U/L (0-31); Albumin Level 3.2 g/dL (3.5-5.0); Alkaline Phosphatase 85 U/L (39-117); Anion Gap 21 (12-20); Aspartate Amino Transferase 27 U/L (5-31); Bilirubin Total 1.2 mg/dL (0.0-1.0); Blood Urea Nitrogen 62 mg/dL (9-16); Calcium 8.8 mg/dL (8.4-10.2); Carbon Dioxide 21 mmol/L (22-29); Chloride 102 mmol/L (96-108); Creatinine Clr Calc Pharmacy 15.9; Estimated Glomerular Filt Rate 22; Glucose Random 303 mg/dL (60-115); Potassium 4.3 mmol/L (3.3-5.1); Sodium 140 mmol/L (135-145); Total Protein 5.8 g/dL (6.5-8.0)
[2023-06-11 18:32] VITALS: BP 104/44; PULSE 94; RESP 31; TEMP 36.7; O2SAT 100
[2023-06-11] MEDS: 0.9 % Sodium Chloride 500 ML 999 ML IV ×2 (18:33→22:17)
[2023-06-11 18:36] LABS: Troponin-I High Sensitivity 38.7 ng/L (<3.5-17.0)
--- NOTE | 2023-06-11 18:39 | ED_ITS ---
HPI - Syncope General Chief Complaint: Syncope Stated Complaint: RAPID A FIB Time Seen by Provider: 06/11/23 17:43 Source: patient Mode of arrival: EMS History of Present Illness HPI narrative: 87-year-old female with history of atrial fibrillation on anticoagulation, is brought in by EMS for a fall and daughter who is at bedside states that patient has been having vomiting of blood today that is new but has been vomiting since Saturday. Patient denies any complaints of pain, shortness of breath, or chest pain. Related Data Home Medications Medication Instructions Recorded Confirmed hydrochlorothiazide 25 mg tablet 25 mg PO DAILY 12/15/20 02/22/23 mirabegron 50 mg tablet,extended 50 mg PO DAILY 12/15/20 02/22/23 release 24 hr simvastatin 80 mg tablet 80 mg PO QAM 12/15/20 02/22/23 glyburide 1.25 mg tablet 1.25 mg PO QAM 05/11/21 02/22/23 enalapril maleate 2.5 mg tablet 2.5 mg PO DAILY 11/16/21 02/22/23 Previous Rx's Medication Instructions Recorded amoxicillin 500 mg capsule 2,000 mg (4 x 500 mg) PO ONCE PRN 03/03/21 Endocarditis prophylaxis #8 caps metoprolol tartrate 50 mg tablet 50 mg PO BID 90 days #180 tabs 11/01/22 apixaban 5 mg tablet (Eliquis) 5 mg PO BID 30 days #60 tabs 02/22/23 Allergies Allergy/AdvReac Type Severity Reaction Status Date / Time fish derived Allergy Severe ANAPHYLAXIS Verified 02/22/23 14:01 TO NON-CRUSTACEAN FISH adhesive tape [ADHESIVE TAPE] Allergy Unknown RASH Verified 02/22/23 14:01 atropine Allergy Unknown UNKNOWN Verified 02/22/23 14:01 ALLERGY TO ATROPINE EYE DROPS Sulfa (Sulfonamide Allergy Unknown UNKNOWN Verified 02/22/23 14:01 Antibiotics) tobramycin Allergy Unknown UNKNOWN Verified 02/22/23 14:01 ALLERGY TO TOBRAMYCIN EYE DROPS brimonidine [Combigan] AdvReac Unknown IRRITATION Verified 02/22/23 14:01 Non-Crusteacean Fish Allergy Unknown UNKNOWN Uncoded 02/22/23 14:01 STEROIDS Allergy Unknown WILL CAUSE Uncoded 02/22/23 14:01 EYE PRESSURE AND BLINDNESS Review of Systems 2 Review of Systems: Pertinent positives and negatives as stated in HPI PMFSH Past Medical History Source: nursing notes reviewed Medical History Diabetes mellitus HTN (hypertension) Chronic atrial fibrillation Surgical History Status post transcatheter aortic valve replacement Family History Family History Father CVD (cardiovascular disease) Mother CVD (cardiovascular disease) Social History Social History Patient Tobacco Use Status: Never used Tobacco Advance Directives: No Advance Directives Information Provided: No Physical Exam 2 Vital Signs: Vital Signs: Last Vital Signs Temp 97.6 F 06/11/23 21:47 Pulse 99 06/11/23 21:47 Resp 24 H 06/11/23 21:47 BP 138/51 L 06/11/23 21:47 Pulse Ox 98 06/11/23 21:47 O2 Del Method Room Air 06/11/23 21:47 BMI result Body Mass Index 23.7 VITAL SIGNS: Reviewed. GENERAL: Cachectic, in no acute distress. HEAD: Normocephalic/atraumatic EYES: PERRLA, EOMI in the right eye, left eye without vision and cloudy at baseline EARS: Ext canals without abnormality NOSE: Nares patent bilateral OROPHARYNX: no oral lesions noted, posterior pharynx clear, stigmata of hematemesis NECK: Supple, no adenopathy LUNGS: Normal breath sounds. No adventitious sounds or accessory muscle use. SpO2<100> CARDIOVASCULAR: IRR?IRR without noted murmurs, no JVD or lower extremity edema. ABDOMEN: Soft, non-tender, non-distended with bowel sounds. MUSCULOSKELETAL: No tenderness, deformities, or effusions noted on gross inspection. EXTREMITIES: No cyanosis, clubbing or edema. SKIN: Inspection of the skin reveals no rashes NEUROLOGIC: Alert and oriented x 3. Strength and sensation to light touch were grossly intact x 4. Medications Administered Discontinued Medications Generic Name Dose Route Start Last Admin Trade Name Freq PRN Reason Stop Dose Admin Sodium Chloride 500 mls @ 999 mls/hr 06/11/23 18:30 06/11/23 19:05 Ns IV 06/11/23 19:00 Infused .Q31M THEODORE Infusion Metoprolol Tartrate 2.5 mg 06/11/23 18:22 06/11/23 18:25 Metoprolol Tartrate 5 Mg/5 Ml Vial IVPUSH 06/11/23 18:23 2.5 mg ONCE ONE Administration Medical Decision Making Medical Decision Making [facility] Narrative: 87-year-old female with history and clinical presentation, DDX: GI bleed, obstruction, atrial fibrillation with RVR, intracranial hemorrhage although there are no focal deficits. Patient received 2.5 mg of Lopressor with good control of heart rate. I reviewed all investigations and hematologic indices are significant for leukocytosis and left shift, patient is afebrile, there is also a macrocytic anemia noted and may reflect the evidence of GI bleed. Coagulation studies demonstrated PT-20.6 and an INR 1.7. Chemistry indices demonstrate and OLMAN and there is a noted hyperglycemia and patient has received a total of 1 L of IV fluids. Although BNP is elevated this is likely reflective of the OLMAN as there is no clinical or chest x-ray evidence to further support fluid overload. High sensitivity troponin is noted to be elevated-38.7 which likely reflects the fact that she was in atrial fibrillation with RVR. She denies any associated shortness of breath or chest pain. Patient is not noted to be hypoxic. I suspect that the leukocytosis is a stress response due to the nausea and vomiting and a component of dehydration as patient is afebrile and there is no evidence of infection. In addition, patient has been rehydrated, type and screen has been completed and Protonix have been given for GI bleed. There was blood noted in this stool of patient's diaper and then as mentioned hematemesis. CT of the head negative for intracranial hemorrhage, CT cervical school spine is negative for fracture or subluxation, chest x-ray negative for infiltrate. CT of the abdomen and pelvis without IV contrast due to patient's OLMAN did not demonstrate any acute findings such as cholecystitis/small-bowel obstruction/diverticulitis. 2204: I discussed case with inpatient hospitalist team who accepts admission. Signed out to Dr Amalia NÚÑEZ/NORMAN Differential Diagnosis Differential Diagnoses: The differential diagnosis associated with the presentation includes Please see the discussion above Admission/Observation Consideration of admission/observation: Escalation of care including admission/observation considered Please see the discussion above Consult Healthcare Provider Management of the patient was discussed with: Hospitalist Please see the discussion above Lab Data MDM Lab Attestation statement: I reviewed the patient's lab results. Please see the discussion above 06/11/23 18:08 06/11/23 18:08 Labs: Lab Results 06/11/23 Range/Units 18:08 WBC 15.2 H (4.8-10.8) X10*3/uL RBC 3.24 L (4.20-5.50) X10*6/uL Hgb 11.2 L (12.0-16.0) g/dl Hct 33.1 L (37.0-47.0) % MCV 102.2 H (80.0-98.0) fL MCH 34.6 H (27.0-33.0) pg MCHC 33.8 (31.0-35.0) g/dl RDW 13.5 (11.0-16.0) % Plt Count 144 L (160-400) X10*3/uL MPV 10.1 (9.4-12.3) fL Immature Gran % (Auto) 0.5 H (0.0-0.4) % Neut % (Auto) 86.5 H (45-73) % Lymph % (Auto) 4.8 L (20-40) % Russell % (Auto) 8.1 (2-11) % Eos % (Auto) 0.0 (0-4) % Baso % (Auto) 0.1 (0-2) % Lymph # (Auto) 0.7 L (1.2-4.9) X10*3/uL Russell # (Auto) 1.2 (0.1-1.2) X10*3/uL Eos # (Auto) 0.0 (0.0-0.4) X10*3/uL Baso # (Auto) 0.0 (0.0-0.2) X10*3/uL Abs Immat Gran (auto) 0.07 H (0.00-0.03) X10*3/uL Absolute Neuts (auto) 13.1 H (2.0-8.3) x10*3/uL Absolute Nucleated RBC 0.000 (0.0-0.012) X10*3/uL Nucleated RBC % (auto) 0.0 (0.0-0.2) /100WBC PT 20.6 H (11.1-13.3) SEC INR 1.7 H (0.9-1.1) Sodium 140 (135-145) mmol/L Potassium 4.3 (3.3-5.1) mmol/L Chloride 102 (96-108) mmol/L Carbon Dioxide 21 L (22-29) mmol/L Anion Gap 21 H (12-20) BUN 62 H (9-16) mg/dL Creatinine 2.10 H (0.5-1.4) mg/dL Estim Creat Clear Calc 15.9 Estimated GFR 22 Random Glucose 303 H (60-115) mg/dL Calcium 8.8 (8.4-10.2) mg/dL Total Bilirubin 1.2 H (0.0-1.0) mg/dL AST 27 (5-31) U/L ALT 23 (0-31) U/L Alkaline Phosphatase 85 (39-117) U/L Troponin I High Sens 38.7 H (<3.5-17.0) ng/L B-Natriuretic Peptide 162 H (<100) pg/mL Total Protein 5.8 L (6.5-8.0) g/dL Albumin 3.2 L (3.5-5.0) g/dL Independent Interpretation I performed an independent interpretation of an: EKG Interpretation: Atrial fibrillation with RVR, HR-135, no STEMI, QRS/QTC are within normal limits. Radiology Impression Discussion of test interpretation with radiology: I have reviewed the radiologist's reading. Radiologist Impression: Please see the discussion above External Record Review External record reviewed: Outpatient record, Prior outpatient labs and Prior outpatient radiology Chronic Conditions Patient?s care impacted by: Diabetes and Other Atrial fibrillation Critical Care Time Critical Care Time Critical Care Time: Yes Total Critical Care Time: 45 Attestation: I personally attest to this time spent taking care of the patient. Discharge Plan Discharge Clinical Impression: Syncope, Chronic anticoagulation, GI bleed, Atrial fibrillation with RVR, OLMAN (acute kidney injury), Hyperglycemia Patient Disposition: Admitted As Inpatient
[2023-06-11 18:41] LABS: Basophils Percent Auto 0.1 % (0-2); Hematocrit 33.1 % (37.0-47.0); Hemoglobin 11.2 g/dl (12.0-16.0); Imm Gran Abs Auto 0.07 X10*3/uL (0.00-0.03); Imm Gran Pct Auto 0.5 % (0.0-0.4); Lymphocytes Absolute Auto 0.7 X10*3/uL (1.2-4.9); Lymphocytes Percent Auto 4.8 % (20-40); Mean Corpuscular HGB Conc 33.8 g/dl (31.0-35.0); Mean Corpuscular Hemoglobin 34.6 pg (27.0-33.0); Mean Corpuscular Volume 102.2 fL (80.0-98.0); Mean Platelet Volume 10.1 fL (9.4-12.3); Monocytes Absolute Auto 1.2 X10*3/uL (0.1-1.2); Monocytes Percent Auto 8.1 % (2-11); Neutrophils Absolute Auto 13.1 x10*3/uL (2.0-8.3); Neutrophils Percent Auto 86.5 % (45-73); Platelet Count 144 X10*3/uL (160-400); Red Blood Count 3.24 X10*6/uL (4.20-5.50); Red Cell Distribution Width 13.5 % (11.0-16.0); White Blood Count 15.2 X10*3/uL (4.8-10.8)
[2023-06-11 18:44] LABS: INTERNATIONAL NORM RATIO 1.7 (0.9-1.1); Prothrombin Time 20.6 SEC (11.1-13.3)
[2023-06-11 20:17] LABS: B Type Natriuretic Peptide 162 pg/mL (<100)
[2023-06-11 21:47] VITALS: BP 138/51; PULSE 99; RESP 24; TEMP 36.4; O2SAT 98
[2023-06-11] MEDS: Pantoprazole Sodium 40 MG/10 ML VIAL 80 MG IVPUSH (22:23)
[2023-06-11 22:24] LABS: COVID-19 Test Negative (Negative); IDNOW Serial# 6674DD1D
--- NOTE | 2023-06-11 22:35 | P.HPHOSP_ITS ---
History of Present Illness Date of Service: 06/11/23 Chief Complaint: Syncope 87-year-old female with a chronic atrial fibrillation anticoagulated with Eliquis, history of severe aortic valve stenosis status post transcatheter aortic valve replacement, hypertension, hyperlipidemia. Patient was brought to the emergency room following a fall at home at home. And according to her daughter and at the bedside, she has not been feeling well since last weekend, with low energy, poor apetite and increase weak. She has gone to the bathroom and came back when she felt dizziness, and lower herself to the floor, no head injury, and in that process also vomited and state that there was blood in it although he has difficulty quantifying it. Initial hemoglobin was 11, repeat 4 hours later 9, troponin i is 38, no chest pain. Review of Systems 2 Review of Systems: Gen: no fever Resp: no sob, no cough CV: no chest, no MORRIS, no leg edema GI: + n/v, no abd pain, Neuro: No confusion, + syncope Yes all other systems are reviewed and are negative [facility] Medical History Diabetes mellitus HTN (hypertension) Chronic atrial fibrillation Family History Father CVD (cardiovascular disease) Mother CVD (cardiovascular disease) Surgical History Status post transcatheter aortic valve replacement Social History Patient Tobacco Use Status: Never used Tobacco Advance Directives: No Advance Directives Information Provided: No Meds Allergies Allergy/AdvReac Type Severity Reaction Status Date / Time fish derived Allergy Severe ANAPHYLAXIS Verified 02/22/23 14:01 TO NON-CRUSTACEAN FISH adhesive tape [ADHESIVE TAPE] Allergy Unknown RASH Verified 02/22/23 14:01 atropine Allergy Unknown UNKNOWN Verified 02/22/23 14:01 ALLERGY TO ATROPINE EYE DROPS Sulfa (Sulfonamide Allergy Unknown UNKNOWN Verified 02/22/23 14:01 Antibiotics) tobramycin Allergy Unknown UNKNOWN Verified 02/22/23 14:01 ALLERGY TO TOBRAMYCIN EYE DROPS brimonidine [Combigan] AdvReac Unknown IRRITATION Verified 02/22/23 14:01 Non-Crusteacean Fish Allergy Unknown UNKNOWN Uncoded 02/22/23 14:01 STEROIDS Allergy Unknown WILL CAUSE Uncoded 02/22/23 14:01 EYE PRESSURE AND BLINDNESS Home Medications Medication Instructions Recorded Confirmed Last Taken Type hydrochlorothiazide 25 mg tablet 25 mg PO DAILY 12/15/20 06/11/23 06/11/23 History simvastatin 80 mg tablet 80 mg PO QAM 12/15/20 06/11/23 06/11/23 History glyburide 1.25 mg tablet 1.25 mg PO QAM 05/11/21 06/11/23 06/11/23 History enalapril maleate 2.5 mg tablet 2.5 mg PO DAILY 11/16/21 06/11/23 06/11/23 History omeprazole 20 mg capsule,delayed 20 mg PO DAILY 06/11/23 06/11/23 06/11/23 History release vibegron 75 mg tablet (Gemtesa) 75 mg PO DAILY 06/11/23 06/11/23 06/11/23 History Physical Exam 2 Vital Signs and Narrative: Vital Signs: Last Vital Signs Temp 97.6 F 06/11/23 21:47 Pulse 99 06/11/23 21:47 Resp 24 H 06/11/23 21:47 BP 138/51 L 06/11/23 21:47 Pulse Ox 98 06/11/23 21:47 O2 Del Method Room Air 06/11/23 21:47 BMI result Body Mass Index 23.7 Results Labs 06/11/23 22:52 06/11/23 18:08 Labs: Laboratory Results - last 24 hr 06/11/23 06/11/23 18:08 21:46 MCV 102.2 H MCH 34.6 H MCHC 33.8 RDW 13.5 Plt Count 144 L MPV 10.1 Immature Gran % (Auto) 0.5 H Neut % (Auto) 86.5 H Lymph % (Auto) 4.8 L Nuckolls % (Auto) 8.1 Eos % (Auto) 0.0 Baso % (Auto) 0.1 Lymph # (Auto) 0.7 L Nuckolls # (Auto) 1.2 Eos # (Auto) 0.0 Baso # (Auto) 0.0 Abs Immat Gran (auto) 0.07 H Absolute Neuts (auto) 13.1 H Absolute Nucleated RBC 0.000 Nucleated RBC % (auto) 0.0 PT 20.6 H INR 1.7 H Anion Gap 21 H Estim Creat Clear Calc 15.9 Estimated GFR 22 Random Glucose 303 H Calcium 8.8 Total Bilirubin 1.2 H AST 27 ALT 23 Alkaline Phosphatase 85 B-Natriuretic Peptide 162 H Total Protein 5.8 L Albumin 3.2 L COVID-19 (ISIS) Negative COVID-19 Clin Com See Note Imaging Radiologist's Impressions: Impressions Chest X-Ray 06/11/23 19:01 IMPRESSION: 1. No focal infiltrate or congestive heart failure is seen. 2. There is bilateral bronchiolar wall thickening, which can be associated with acute bronchiolitis or reactive airways disease. Abdomen/Pelvis CT 06/11/23 19:41 IMPRESSION: 1. Cholelithiasis without cholecystitis. 2. Left adrenal gland hypertrophy. 3. Amorphous calcification in the upper pole of left kidney, correlate with renal ultrasound. 4. Fluid-filled colon without evidence of obstruction. 5. Diverticulosis without diverticulitis. 6. Compression deformity of L4 vertebral body. Fleischner guidelines were followed. Cervical Spine CT 06/11/23 19:41 IMPRESSION: 1. No acute intracranial pathology. 2. There is paranasal sinusitis. EXAMINATION: CT CERVICAL SPINE WITHOUT CONTRAST CLINICAL INFORMATION: Pain status-post fall. COMPARISON: None available. TECHNIQUE: Contiguous axial imaging was performed through the cervical spine without intravenous administration of contrast. Multiplanar reformatted images are submitted. This CT examination was performed using dose optimization techniques as appropriate, variously including the following: *Automated exposure control *Adjustment of mA and/or kV according to patient size (this includes techniques or standardized protocols for targeted exams where dose is matched to indication/reason for exam; i.e. extremities or head) *Use of iterative reconstruction technique DLP: As above FINDINGS: Vertebral body heights are normal. There are multi-level degenerative disc calcifications. At C3-C4, there is mild posterior disc space narrowing. At C5-C6 and C6-C7, there is moderately severe disc space narrowing. At C7-T1, there is a 3 mm anterolisthesis. At T2-T3, there is mild anterior disc space narrowing. No acute fracture or spondylolisthesis is seen. The posterior elements are intact. There is multi-level facet arthropathy. There is no prevertebral soft tissue swelling. The dens is intact. There is degenerative change of the atlantoaxial joint. The bilateral lung apices are clear. IMPRESSION: 1. No acute fracture or spondylolisthesis is seen. 2. 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 Degenerative disc disease is most pronounced at C5-C6 and C6-C7, where it is moderately severe. Fleischner guidelines were followed. Head CT 06/11/23 19:41 IMPRESSION: 1. No acute intracranial pathology. 2. There is paranasal sinusitis. EXAMINATION: CT CERVICAL SPINE WITHOUT CONTRAST CLINICAL INFORMATION: Pain status-post fall. COMPARISON: None available. TECHNIQUE: Contiguous axial imaging was performed through the cervical spine without intravenous administration of contrast. Multiplanar reformatted images are submitted. This CT examination was performed using dose optimization techniques as appropriate, variously including the following: *Automated exposure control *Adjustment of mA and/or kV according to patient size (this includes techniques or standardized protocols for targeted exams where dose is matched to indication/reason for exam; i.e. extremities or head) *Use of iterative reconstruction technique DLP: As above FINDINGS: Vertebral body heights are normal. There are multi-level degenerative disc calcifications. At C3-C4, there is mild posterior disc space narrowing. At C5-C6 and C6-C7, there is moderately severe disc space narrowing. At C7-T1, there is a 3 mm anterolisthesis. At T2-T3, there is mild anterior disc space narrowing. No acute fracture or spondylolisthesis is seen. The posterior elements are intact. There is multi-level facet arthropathy. There is no prevertebral soft tissue swelling. The dens is intact. There is degenerative change of the atlantoaxial joint. The bilateral lung apices are clear. IMPRESSION: 1. No acute fracture or spondylolisthesis is seen. 2. 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 Degenerative disc disease is most pronounced at C5-C6 and C6-C7, where it is moderately severe. Fleischner guidelines were followed. Assessment and Plan (1) OLMAN (acute kidney injury): Status: Acute (2) GI bleed: Status: Acute (3) Acute blood loss anemia: Status: Acute Plan 87-year-old female with a chronic atrial fibrillation anticoagulated with Eliquis presenting with fall and vomiting blood pre syncope, she didn't quite pass out, likely related to gen weakness, dehydration--IVF, air sampling and monitoring and should be assess by PT before discharge GI bleed--suspect upper bleed, stop Eliquis, NPO, IV PPI, GI consult acute blood loss anemia--mild, no indication for transfusion at this time, monitor H/H OLMAN--last Creatine in 2019 was 1, possible pre renal, IVF and repeat in the morning and if worsening then nephrology consult chronic atrial fibrillation--rate is controlled on Metroprolol, continue. Hold Eliquis as above hypertension--hold Enalapril and HCTZ in light of renal failure, continue metoprolol and if needed add Norvasc hyperlipidemia-continue Lipitor diabetes--hold glyburide, SSI Leukocytosis--no source of infection, likely reactive, monitor, check UA DVT prophylaxis--compression device Full code Admission to spend at least 2 midnights for management of acute GI bleed there may need further workup and close monitoring of hemoglobin and hematocrit Plan discussed with daughter and at bedside Time Spent With Patient Time: Total time managing care of this patient today ____ minutes. Quality Stroke Does the patient have a stroke diagnosis?: No VTE Prior VTE?: No VTE Risk Level:: Medical - moderate - high VTE Device Contraindication: N/A - Device Ordered VTE Drug Contraindication: Treatment Not Tolerated
--- NOTE | 2023-06-11 22:35 | PHA.MEDREC ---
Pharmacy Consult ? Medication Reconciliation Pharmacy has completed the medication reconciliation. Patient's family had list of medications. Glyburide 2.5 mg was on list however patient has been filling glybuirde 1.25 mg daily so I left has prescription states as family was not too sure. Family will bring Gemtesa in for patient. Tracee Scott, RisaD
[2023-06-11 22:58] LABS: Hemoglobin 9.4 g/dl (12.0-16.0); Mean Corpuscular HGB Conc 33.6 g/dl (31.0-35.0); Mean Corpuscular Hemoglobin 34.4 pg (27.0-33.0); Mean Corpuscular Volume 102.6 fL (80.0-98.0); Mean Platelet Volume 10.2 fL (9.4-12.3); Platelet Count 109 X10*3/uL (160-400); Red Blood Count 2.73 X10*6/uL (4.20-5.50); Red Cell Distribution Width 13.5 % (11.0-16.0)
[2023-06-11 23:24] LABS: Troponin-I High Sensitivity 50.4 ng/L (<3.5-17.0)
--- OUTSIDE RECORDS SUMMARY | 2023-06-11 23:30 | XMS_ITS | Continuity of Care Document ---
Author Name Unknown Organization [facility] Address [address] [place] [phone]- Care Team Providers Care Machine Spreader Name Role Phone Erika Malone MD Primary Care Physician ( [phone] Encounter [facility] [place] Date(s): 10/11/20 - 02/03/21 [facility] [address] [place] [address]- Attending Physician: Fadi Alegre MD Admitting Physician: Fadi Alegre MD Referring Physician: Erika Malone MD Allergies, Adverse Reactions, Alerts Substance Reaction Severity Status sulfADIAZINE Active atropine ophthalmic Active tobramycin ophthalmic Active Adhesive Bandage 1 Active Fish Active Combigan Active 1pain and itching Immunizations Given and Recorded Vaccine Date Status Refusal Reason SARS-CoV-2 (COVID-19) mRNA BNT-162b2 vac 11/10/20 Given SARS-CoV-2 (COVID-19) mRNA BNT-162b2 vac 10/20/20 Given Medications Alprazolam 0.25 mg, By Mouth, Refills 0, Maintenance, 10/10/16 8:44:37 Start Date: 10/10/16 Status: Ordered amoxicillin 500 mg oral capsule 4 capsule = 2,000 mg, By Mouth, Once, take 30 to 60 minutes prior to dental cleaning and procedures, # 4 capsule, 1 Refills, Soft Stop, 01/22/20 10:25:00 EDT, [facility]/pharmacy #[id number], only fill per patient request, 161, cm, 01/12/19 9:26:00 EDT, Height Start Date: 01/22/20 Status: Ordered Hydrochlorothiazide = 25 mg, By Mouth, Daily, 0 Refills, Maintenance, 10/10/16 8:40:18 Start Date: 10/10/16 Status: Ordered metoprolol 100 mg oral tablet 50 mg, 0.5, tablet, By Mouth, 2 times a day, # 180 tablet, Refills 0, Maintenance, 06/26/17 15:28:13 Start Date: 06/26/17 Status: Ordered Multiple Vitamins oral tablet, dispersible 1, By Mouth, Daily, 0 Refills, Maintenance, 10/10/16 8:45:24 Start Date: 10/10/16 Status: Ordered Protonix 40 mg oral delayed release tablet 40 mg, 1, tablet, By Mouth, Daily, # 30 tablet, Refills 0, Maintenance, 10/10/16 8:42:29 Start Date: 10/10/16 Status: Ordered simvastatin 80 mg oral tablet 1 tablet = 80 mg, By Mouth, Daily at bedtime, # 30 tablet, 0 Refills, Maintenance, 10/10/16 8:40:46, Tablet Start Date: 10/10/16 Status: Ordered Vitamin B12 0 Refills, Maintenance, 10/10/16 8:47:51 Start Date: 10/10/16 Status: Ordered Vitamin B6 = 200 mg, By Mouth, Daily, 0 Refills, Maintenance, 10/10/16 8:46:45 Start Date: 10/10/16 Status: Ordered vitamin E 400 iu oral capsule 1 capsule = 400 International_Units, By Mouth, Daily, # 100 capsule, 0 Refills, Maintenance, 10/10/16 8:46:24, Capsule Start Date: 10/10/16 Status: Ordered warfarin 1 mg oral tablet 1 tablet = 1 mg, By Mouth, Daily, # 30 tablet, 0 Refills, Maintenance, 10/10/16 8:41:21, Tablet Start Date: 10/10/16 Status: Ordered Problem List Condition Effective Dates Status Health Status Inform ant Angina at rest(Confirmed) Active Anxiety(Confirmed) Active Severe aortic stenosis(Confirmed) Active Asthma(Confirmed) Active Barretts esophagus(Confirmed) Active Blind left eye(Confirmed) Active Chronic atrial fibrillation(Confirmed) Active Diabetes mellitus(Confirmed) Active Moderate Diverticulosis(Confirmed) Active MORRIS (dyspnea on exertion)(Confirmed) Active Eczema(Confirmed) Active Angina effort(Confirmed) Active Tiredness(Confirmed) Active Gastric polyps(Confirmed) Active GERD (gastroesophageal reflu x disease)(Confirmed) Active Hiatal hernia(Confirmed) Active S/P TAVR (transcatheter aort ic valve replacement)(Confirmed) Active Cataract extraction status(Confirmed) Active Hypercholesteremia(Confirmed) Active HTN (hypertension)(Confirmed) Active Nasal polyps(Confirmed) Active OA (osteoarthritis)(Confirmed) Active Detached retina, left(Confirmed) Active Esophageal strictures w/mult iple dilatations(Confirmed) Active Social History Social History Type Response Smoking Status Never smoker; Tobacc o user in household: No entered on: 10/29/16 Sex Female
--- OUTSIDE RECORDS SUMMARY | 2023-06-11 23:30 | XMS_ITS | Continuity of Care Document ---
Author Name Unknown Organization [facility] Address [address] [place] [address]- Care Team Providers Care Hand Sander Name Role Phone Erika Malone MD Primary Care Physician ( [phone] Encounter [facility] [place] Date(s): 01/22/20 - 02/21/20 [facility] [address] [place] [address]- [facility] Attending Physician: Nilam Henry Admitting Physician: Nilam Henry Referring Physician: AdmtrNilam Allergies, Adverse Reactions, Alerts Substance Reaction Severity Status sulfADIAZINE Active atropine ophthalmic Active tobramycin ophthalmic Active Adhesive Bandage 1 Active Fish Active Combigan Active 1pain and itching Medications Alprazolam 0.25 mg, By Mouth, Refills 0, Maintenance, 10/10/16 8:44:37 Start Date: 10/10/16 Status: Ordered amoxicillin 500 mg oral capsule 4 capsule = 2,000 mg, By Mouth, Once, take 30 to 60 minutes prior to dental cleaning and procedures, # 4 capsule, 1 Refills, Soft Stop, 01/22/20 10:25:00 EDT, [facility]/pharmacy #[id number], only fill per patient request, 161, [...]
--- OUTSIDE RECORDS SUMMARY | 2023-06-11 23:30 | XMS_ITS | Continuity of Care Document ---
Author Name Unknown Organization [facility] Address [address] [place] [address]- Care Team Providers Care Hand Roller Name Role Phone Erika Malone MD Primary Care Physician [place] [facility] 01/22/20 - 01/29/20 [facility] [address] [place] [address]- [facility] Attending Physician: Nereyda Martines NP Admitting Physician: Nereyda Martines NP Referring Physician: Erika Malone MD Allergies, Adverse [...] Soft Stop, 01/22/20 10:25:00 EDT, [facility]/pharmacy #[id number], only fill per patient request, [...]
--- OUTSIDE RECORDS SUMMARY | 2023-06-11 23:30 | XMS_ITS | Continuity of Care Document ---
Author Name Unknown Organization [facility] Address [address] [place] [address]- Care Team Providers Care Account Executive Software Sales Name Role Phone Erika Malone MD Primary Care Physician Encounter [facility] Date(s): 12/25/19 - 01/04/20 [facility] [address] [place] [address]- [facility] Attending Physician: Nilam Henry Admitting Physician: Nilam Henry Referring Physician: AdmtrNilam Allergies, Adverse Reactions, Alerts Substance Reaction Severity Status sulfADIAZINE Active atropine ophthalmic Active Fish Active Combigan Active Adhesive Bandage 1 Active tobramycin ophthalmic Active 1pain and itching Medications Alprazolam 0.25 mg, By Mouth, Refills 0, Maintenance, 10/10/16 8:44:37 Start Date: 10/10/16 Status: Ordered cephalexin monohydrate 500 mg oral capsule 1 CAPSULE EVERY 12 HRS ORALLY 5 DAYS Start Date: 01/12/19 Status: Ordered glyBURIDE 1.25 mg oral tablet 1.25 mg, 1, tablet, By Mouth, Daily, # 30 tablet, Refills 0, Maintenance, 10/10/16 8:43:30 Start Date: 10/10/16 Status: Ordered Hydrochlorothiazide = 25 mg, By [...]
--- OUTSIDE RECORDS SUMMARY | 2023-06-11 23:30 | XMS_ITS | Continuity of Care Document ---
Author Name Unknown Organization [facility] Address [address] [place] [address]- Care Team Providers Care Pmo Consultant Name Role Phone Erika Malone MD Primary Care Physician ( [phone] Encounter [facility] [place] Date(s): 01/04/21 - 02/03/21 [facility] [address] [place] [address]- Attending Physician: Admtr, Nilam Admitting Physician: Admtr, Ar8 Referring Physician: Admtr, Ar8 Allergies, Adverse Reactions, Alerts Substance Reaction Severity Status sulfADIAZINE Active atropine ophthalmic Active Fish Active Combigan Active Adhesive Bandage 1 Active tobramycin ophthalmic Active 1pain and itching Immunizations Given and [...] 1 Refills, Soft Stop, 01/22/20 10:25:00 EDT, [facility]/pharmacy #[id number], only fill per patient request, 161, [...]
--- OUTSIDE RECORDS SUMMARY | 2023-06-11 23:30 | XMS_ITS | Continuity of Care Document ---
Author Name Unknown Organization [facility] Address [address] [place] [address]- Care Team Providers Care Data Integrity Specialist Name Role Phone Erika Malone MD Primary Care Physician [place] [facility] [id number] Date(s): 01/24/22 - 02/23/22 [facility] [address] [place] [address]- Attending Physician: Nilam Henry Admitting Physician: AdmtrNilam Referring Physician: Admtr, Ar8 Allergies, Adverse Reactions, [...] 1 Refills, Soft Stop, 01/22/20 10:25:00 EDT, [facility]/pharmacy #[id number], only fill per patient request, 161, cm, 01/12/19 9:26:00 EDT, Height Start Date: 01/22/20 Status: Ordered enalapril 2.5 mg oral tablet 1 tablet = 2.5 mg, By Mouth, Daily, # 30 tablet, 0 Refills, Maintenance, 01/24/22 12:51:00 EDT, Tablet, Partial fill upon patient request if the prescription is for a schedule II opioid drug. Start Date: 01/24/22 Status: Ordered glyBURIDE 2.5 mg oral tablet 2.5 mg, 1, tablet, By Mouth, Daily, Refills 0, Maintenance, 01/24/22 12:50:00 EDT, Partial fill upon patient request if the prescription is for a schedule II opioid drug. Start Date: 01/24/22 Status: Ordered Hydrochlorothiazide = 25 mg, By [...] 10/10/16 8:45:24 Start Date: 10/10/16 Status: Ordered Myrbetriq 50 mg oral tablet, extended release 1 tablet = 50 mg, By Mouth, Daily, 0 Refills, Maintenance, 01/24/22 12:50:00 EDT, Partial fill uponpatient request if the prescription is for a schedule II opioid drug. Start Date: 01/24/22 Status: Ordered PriLOSEC OTC 20 mg oral delayed release tablet 1 tablet = 20 mg, By Mouth, Daily, 0 Refills, Maintenance, 01/24/22 12:50:00 EDT, Partial fill uponpatient request if the prescription is for a schedule II opioid drug. Start Date: 01/24/22 Status: Ordered Protonix 40 mg oral delayed [...]
--- OUTSIDE RECORDS SUMMARY | 2023-06-11 23:30 | XMS_ITS | Continuity of Care Document ---
Author Name Unknown Organization [facility] Address [address] [place] [phone]- Care Team Providers Care Community Relations Liaison Name Role Phone Erika Malone MD Primary Care Physician Encounter [facility] [place] Date(s): 10/28/19 - 01/24/20 [facility] [address] [place] [address]- [facility] Attending Physician: Nereyda Martines NP Admitting Physician: [...] Stop, 01/22/20 10:25:00 EDT, [facility]/pharmacy #[id number], only fill per patient request, 161, [...]
[2023-06-11 23:33] VITALS: BP 127/57; PULSE 100; RESP 16; O2SAT 100
[2023-06-12] VITALS (8 sets, daily range): BP systolic 110–152; BP diastolic 55–63; PULSE 96–130; RESP 14–22; TEMP 36.6–37.5; O2SAT 98–100; BMI 26.0
[2023-06-12 00:14] LABS: Folate 14.8 ng/mL (> or = 4.0); Vitamin B12 1508 pg/mL (200-900)
[2023-06-12] MEDS: Lactated Ringers 1,000 ML 100 ML IVCONT ×3 (01:48→19:57)
[2023-06-12] MEDS: Metoprolol Tartrate 5 MG/5 ML VIAL 2.5 MG IVPUSH ×2 (02:09→04:30)
--- NOTE | 2023-06-12 04:58 | PC.NURSE ---
this rn assumed care of pt at 0300. @ 0407 HR noted to be 118-130s. this rn made dr kirby aware pt medicated according to sofi with iv metoprolol
--- NOTE | 2023-06-12 04:59 | PC.NURSE ---
this rn and medical support assistant performed full bed change, pt incontinent urine and stool. pt placed on periwick. pt calm and cooperative. family back to bedside after bed change
[2023-06-12 05:36] LABS: Hematocrit 31.9 % (37.0-47.0); Hemoglobin 10.4 g/dl (12.0-16.0); Mean Corpuscular HGB Conc 32.6 g/dl (31.0-35.0); Mean Corpuscular Hemoglobin 34.4 pg (27.0-33.0); Mean Corpuscular Volume 105.6 fL (80.0-98.0); Mean Platelet Volume 11.9 fL (9.4-12.3); Red Blood Count 3.02 X10*6/uL (4.20-5.50); Red Cell Distribution Width 13.5 % (11.0-16.0); White Blood Count 6.2 X10*3/uL (4.8-10.8)
[2023-06-12 05:38] LABS: Platelet Count 25 X10*3/uL (160-400)
[2023-06-12 06:03] LABS: Anion Gap 15 (12-20); Blood Urea Nitrogen 63 mg/dL (9-16); Calcium 8.4 mg/dL (8.4-10.2); Carbon Dioxide 23 mmol/L (22-29); Chloride 108 mmol/L (96-108); Creatinine Clr Calc Pharmacy 21.1; Estimated Glomerular Filt Rate 31; Glucose Random 178 mg/dL (60-115); Potassium 3.9 mmol/L (3.3-5.1); Sodium 142 mmol/L (135-145)
[2023-06-12 06:09] LABS: Troponin-I High Sensitivity 36.4 ng/L (<3.5-17.0)
--- NOTE | 2023-06-12 07:04 | PM.GICN ---
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 History was obtained from daughter at bedside who states that patient has been feeling unwell since Saturday with abdominal cramping, nausea, vomiting and decreased appetite. No diarrhea, fevers or chills. By Saturday, she developed significant weakness specially on getting up and ended up having a presyncopal fall which then prompted the ER visit. She was also noted to have blood in her emesis that day which was reported as fresh, amd later on same day also had black stool in her depends. In the emergency room, she was noted to be tachycardic on arrival. Labs were significant for hemoconcentration with WBC count up to 15.2, creatinine of 2.10, up from previous known baseline of 1.1. She underwent CT scan of her abdomen and pelvis that was unremarkable from gastrointestinal standpoint but did show other findings in kidney and adrenal gland. 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 Hyperplastic polyp. Diverticulosis. Review of Systems Review of Systems: Yes all other systems are reviewed and are negative [facility] Past Medical History Medical History Diabetes mellitus HTN (hypertension) Chronic atrial fibrillation Family History Family History Father CVD (cardiovascular disease) Mother CVD (cardiovascular disease) Surgical History Surgical History Status post transcatheter aortic valve replacement Social History Social History Household Members: Spouse Housing: House Do you presently have visiting nurse or other home services: No Patient Tobacco Use Status: Never used Tobacco service: No Meds Allergies Allergy/AdvReac Type Severity Reaction Status Date / Time fish derived Allergy Severe ANAPHYLAXIS Verified 02/22/23 14:01 TO NON-CRUSTACEAN FISH adhesive tape [ADHESIVE TAPE] Allergy Unknown RASH Verified 02/22/23 14:01 atropine Allergy Unknown UNKNOWN Verified 02/22/23 14:01 ALLERGY TO ATROPINE EYE DROPS Sulfa (Sulfonamide Allergy Unknown UNKNOWN Verified 02/22/23 14:01 Antibiotics) tobramycin Allergy Unknown UNKNOWN Verified 02/22/23 14:01 ALLERGY TO TOBRAMYCIN EYE DROPS brimonidine [Combigan] AdvReac Unknown IRRITATION Verified 02/22/23 14:01 Non-Crusteacean Fish Allergy Unknown UNKNOWN Uncoded 02/22/23 14:01 STEROIDS Allergy Unknown WILL CAUSE Uncoded 02/22/23 14:01 EYE PRESSURE AND BLINDNESS Active Medications: Current Medications Atorvastatin Calcium (Atorvastatin Calcium 40 Mg Tablet) 40 mg PO DAILY [facility] Dextrose (Dextrose 50 % 25 Gm/50 Ml Syringe) 25 gm IVPUSH Q15M PRN; Protocol PRN Reason: per Hypoglycemia Standing Ord. Enalapril Maleate (Enalapril Maleate 2.5 Mg Tablet) 2.5 mg PO DAILY [facility]; Protocol Glucose (Glucose Gel 15 Gm Gel..Gram.) 15 gm PO Q15M PRN; Protocol PRN Reason: per Hypoglycemia Standing Ord. Lactated Ringer's (Lr) 1,000 mls @ 100 mls/hr IVCONT .Q10H [facility] Last Admin: 06/12/23 01:48 Dose: 100 mls/hr Insulin Human Lispro (Insulin Lispro 100 Unit/Ml 3 Ml Vial) 0 unit SUBCUT QIDACHS [facility]; Protocol Metoprolol Tartrate (Metoprolol Tartrate 50 Mg Tablet) 50 mg PO BID [facility]; Protocol Pantoprazole Sodium (Pantoprazole Sodium 40 Mg/10 Ml Vial) 40 mg IVPUSH BID@0630,1630 [facility] Sodium Chloride (0.9 % Sodium Chloride Flush 3 Ml Syringe) 3 ml IVFLUSH QSHIFT [facility] Last Admin: 06/12/23 01:19 Dose: Not Given Home Medications Medication Instructions Recorded Confirmed Last Taken Type hydrochlorothiazide 25 mg tablet 25 mg PO DAILY 12/15/20 06/11/23 06/11/23 History simvastatin 80 mg tablet 80 mg PO QAM 12/15/20 06/11/23 06/11/23 History glyburide 1.25 mg tablet 1.25 mg PO QAM 05/11/21 06/11/23 06/11/23 History enalapril maleate 2.5 mg tablet 2.5 mg PO DAILY 11/16/21 06/11/23 06/11/23 History omeprazole 20 mg capsule,delayed 20 mg PO DAILY 06/11/23 06/11/23 06/11/23 History release vibegron 75 mg tablet (Gemtesa) 75 mg PO DAILY 06/11/23 06/11/23 06/11/23 History Physical Exam Vital Signs: Vital Signs: Last Vital Signs Temp 98.3 F 06/12/23 04:15 Pulse 130 H 06/12/23 04:15 Resp 16 06/12/23 04:15 BP 136/55 L 06/12/23 04:15 Pulse Ox 100 06/12/23 04:15 O2 Del Method Room Air 06/12/23 04:15 BMI result Body Mass Index 23.7 Gen appear: NAD HEENT: nonicteric, no cervical lymphadenopathy Chest: CTA CVS: Regular S1/S2 Abd: soft, nontender, nondistended, bowel sounds + Ext: no peripheral edema Results Labs 06/12/23 05:20 06/12/23 05:20 Labs: Short CBC 06/11/23 06/11/23 06/12/23 Range/Units 18:08 22:52 05:20 WBC 15.2 H 11.0 H 6.2 (4.8-10.8) X10*3/uL Hgb 11.2 L 9.4 L 10.4 L (12.0-16.0) g/dl Hct 33.1 L 28.0 L 31.9 L (37.0-47.0) % Plt Count 144 L 109 L 25 L D (160-400) X10*3/uL BMP 06/11/23 06/12/23 18:08 05:20 Sodium 140 142 Potassium 4.3 3.9 Chloride 102 108 Carbon Dioxide 21 L 23 BUN 62 H 63 H Creatinine 2.10 H 1.58 H Calcium 8.8 8.4 Liver Function 06/11/23 Range/Units 18:08 Total Bilirubin 1.2 H (0.0-1.0) mg/dL AST 27 (5-31) U/L ALT 23 (0-31) U/L Alkaline Phosphatase 85 (39-117) U/L Albumin 3.2 L (3.5-5.0) g/dL Assessment and Plan (1) OLMAN (acute kidney injury): Status: Acute (2) Acute blood loss anemia: Status: Acute (3) GI bleed: Status: Acute (4) Status post transcatheter aortic valve replacement: Status: Acute (5) Chronic atrial fibrillation: Status: Acute (6) Current use of anticoagulant therapy: Status: Acute Plan Assessment consistent with UGIB. Ddx include MWT, esophagitis, PUD. Will set her up for an EGD - this will be booked tentatively for tmrw to allow for at least 48h off eliquis time (ideally need 3-4 days with her current GFR but since anticipated to be mostly diagnostic EGD, elect to proceed tmrw). Plan: - Cont resuscitation with iV fluids and or pRBC as needed - Monitor H/H daily - Maintain IV access at all times - IV Protonix BID - Hold eliquis, with plan for EGD tomorrow tentatively - Please check CBC tmrw AM and transfuse platelets if below 50K. - Can have liquid diet today. NPO after MN. Thank you for the consultation. Please do not hesitate to reach out for any questions or concerns. Time Spent With Patient Time: Total time managing care of this patient today ____ minutes. Procedures Date of Service Date of Service: 06/12/23
--- NOTE | 2023-06-12 07:28 | PHA.MEDREC ---
Pharmacy Consult ? Medication Reconciliation Pharmacy has completed the medication reconciliation.
--- NOTE | 2023-06-12 07:28 | PC.NURSE ---
Attempted to call report x 1. nurse unavailable, will call back.
--- NOTE | 2023-06-12 07:34 | PC.NURSE ---
Report to [facility] on [facility], pt awaiting transport.
[2023-06-12] MEDS: Pantoprazole Sodium 40 MG/10 ML VIAL IVPUSH ×2 (07:41→17:13)
[2023-06-12 07:42] LABS: Glucose, Whole Blood 149 mg/dL (60-115)
--- NOTE | 2023-06-12 07:47 | PC.NURSE ---
Pt medicated per order. pt and family informed she will be going to inpatient unit. oral swab given.
[2023-06-12 08:16] LABS: Glucose, Whole Blood 141 mg/dL (60-115)
[2023-06-12] MEDS: Atorvastatin Calcium 40 MG TABLET PO (09:38)
[2023-06-12] MEDS: Metoprolol Tartrate 50 MG TABLET PO ×2 (09:38→20:56)
--- NOTE | 2023-06-12 09:42 | MHC.CM.PN ---
IMM DELIVERED TO DAUGHTER/HCP AT BEDSIDE, PT VERY DROWSY, AYAD ALSO AT BEDSIDE PER DAUGHTER, PT FROM HOME WITH AND DTR. INDEPENDENT, NO SERVICES. USES CANE PRN, EXERCISES FREQUENTLY PCP: DR. VALADEZ WITH [facility] HCP: DAUGHTER LIO, COPY REQUESTED DCP: PENDING. FAMILY IS OPEN TO SERVICES OR STR IF RECOMMENDED, P[facility]ERS [facility]. IF RETURNING HOME DAUGHTER WILL TRANSPORT
[2023-06-12 10:59] LABS: Glucose, Whole Blood 128 mg/dL (60-115)
--- NOTE | 2023-06-12 12:13 | HO.PM.IMPN ---
Subjective Subjective Date of Service: 06/12/23 Interval History: Offers no acute complaints denies headache, no lightheadedness, no dizziness denies chest pain, no palpitation, no further episode of hematemesis since admission Physical Exam Vital Signs: Vital Signs: Last Vital Signs Temp 99.5 F 06/12/23 10:56 Pulse 101 H 06/12/23 10:56 Resp 20 06/12/23 10:56 BP 115/58 L 06/12/23 10:56 Pulse Ox 100 06/12/23 10:56 O2 Del Method Room Air 06/12/23 10:56 BMI result Body Mass Index 26.0 Objective Data Active Medications Atorvastatin Calcium (Atorvastatin Calcium 40 Mg Tablet) 40 mg PO DAILY [facility] Last Admin: 06/12/23 09:38 Dose: 40 mg Documented By: SAGAR Dextrose (Dextrose 50 % 25 Gm/50 Ml Syringe) 25 gm IVPUSH Q15M PRN; Protocol PRN Reason: per Hypoglycemia Standing Ord. Glucose (Glucose Gel 15 Gm Gel..Gram.) 15 gm PO Q15M PRN; Protocol PRN Reason: per Hypoglycemia Standing Ord. Lactated Ringer's (Lr) 1,000 mls @ 100 mls/hr IVCONT .Q10H [facility] Last Admin: 06/12/23 09:41 Dose: 100 mls/hr Documented By: SAGAR Insulin Human Lispro (Insulin Lispro 100 Unit/Ml 3 Ml Vial) 0 unit SUBCUT QIDACHS [facility]; Protocol Last Admin: 06/12/23 07:41 Dose: Not Given Documented By: ORALIA Non-Admin Reason: No Insulin Coverage Metoprolol Tartrate (Metoprolol Tartrate 50 Mg Tablet) 50 mg PO BID [facility]; Protocol Last Admin: 06/12/23 09:38 Dose: 50 mg Documented By: SAGAR Pantoprazole Sodium (Pantoprazole Sodium 40 Mg/10 Ml Vial) 40 mg IVPUSH BID@0630,1630 [facility] Last Admin: 06/12/23 07:41 Dose: 40 mg Documented By: ORALIA Sodium Chloride (0.9 % Sodium Chloride Flush 3 Ml Syringe) 3 ml IVFLUSH QSHIFT [facility] Last Admin: 06/12/23 07:41 Dose: Not Given Documented By: ORALIA Non-Admin Reason: IV Running Labs 06/12/23 05:20 06/12/23 05:20 Labs: Laboratory Results - last 24 hr 06/11/23 06/11/23 06/11/23 18:08 21:46 22:00 MCV 102.2 H MCH 34.6 H MCHC 33.8 RDW 13.5 Plt Count 144 L MPV 10.1 Immature Gran % (Auto) 0.5 H Neut % (Auto) 86.5 H Lymph % (Auto) 4.8 L Hancock % (Auto) 8.1 Eos % (Auto) 0.0 Baso % (Auto) 0.1 Lymph # (Auto) 0.7 L Hancock # (Auto) 1.2 Eos # (Auto) 0.0 Baso # (Auto) 0.0 Abs Immat Gran (auto) 0.07 H Absolute Neuts (auto) 13.1 H Absolute Nucleated RBC 0.000 Nucleated RBC % (auto) 0.0 PT 20.6 H INR 1.7 H Anion Gap 21 H Estim Creat Clear Calc 15.9 Estimated GFR 22 POC Glucose Random Glucose 303 H Calcium 8.8 Total Bilirubin 1.2 H AST 27 ALT 23 Alkaline Phosphatase 85 B-Natriuretic Peptide 162 H Total Protein 5.8 L Albumin 3.2 L Vitamin B12 Folate COVID-19 (ISIS) Negative COVID-19 Clin Com See Note Blood Type B Positive Antibody Screen NEGATIVE 06/11/23 06/12/23 06/12/23 22:52 05:20 07:31 MCV 102.6 H 105.6 H MCH 34.4 H 34.4 H MCHC 33.6 32.6 RDW 13.5 13.5 Plt Count 109 L 25 L D MPV 10.2 11.9 Immature Gran % (Auto) Neut % (Auto) Lymph % (Auto) Hancock % (Auto) Eos % (Auto) Baso % (Auto) Lymph # (Auto) Hancock # (Auto) Eos # (Auto) Baso # (Auto) Abs Immat Gran (auto) Absolute Neuts (auto) Absolute Nucleated RBC 0.000 0.000 Nucleated RBC % (auto) 0.0 0.0 PT INR Anion Gap 15 Estim Creat Clear Calc 21.1 Estimated GFR 31 POC Glucose 149 H Random Glucose 178 H Calcium 8.4 Total Bilirubin AST ALT Alkaline Phosphatase B-Natriuretic Peptide Total Protein Albumin Vitamin B12 1508 H Folate 14.8 COVID-19 (ISIS) COVID-19 Clin Com Blood Type Antibody Screen 06/12/23 06/12/23 08:12 10:54 MCV MCH MCHC RDW Plt Count MPV Immature Gran % (Auto) Neut % (Auto) Lymph % (Auto) Hancock % (Auto) Eos % (Auto) Baso % (Auto) Lymph # (Auto) Hancock # (Auto) Eos # (Auto) Baso # (Auto) Abs Immat Gran (auto) Absolute Neuts (auto) Absolute Nucleated RBC Nucleated RBC % (auto) PT INR Anion Gap Estim Creat Clear Calc Estimated GFR POC Glucose 141 H 128 H Random Glucose Calcium Total Bilirubin AST ALT Alkaline Phosphatase B-Natriuretic Peptide Total Protein Albumin Vitamin B12 Folate COVID-19 (ISIS) COVID-19 Clin Com Blood Type Antibody Screen Assessment and Plan (1) Acute blood loss anemia: Status: Acute (2) OLMAN (acute kidney injury): Status: Acute (3) GI bleed: Status: Acute Plan 87-year-old female with a chronic atrial fibrillation anticoagulated with Eliquis presenting with fall and vomiting blood pre syncope, likely related to dehydration, generalized weakness, , continue IV fluid, residential monitor and PT eval prior to discharge Acute GI bleed--suspect upper bleed, continue to hold Eliquis, IV PPI, seen by Dr. Jean Paul rain possible upper endoscopy at a.m. repeat hematocrit stable will place on liquid diet acute blood loss anemia--mild, no indication for transfusion at this time, repeat hematocrit stable OLMAN--last Creatinine in 2019 was 1, creatinine trending down likely prerenal continue IV fluids monitor BMP chronic persistent atrial fibrillation--EKG showed atrial fibrillation, rate controlled on Metroprolol, continue. Hold Eliquis as above hypertension-- stable blood pressure continue metoprolol, hold Enalapril and HCTZ in light of renal failure, follow BP closely hyperlipidemia-continue Lipitor diabetes--stable blood sugars less than 150, hold glyburide, continue SSI Leukocytosis--resolved was likely reactive, UA not collected DVT prophylaxis--compression device Full code Patient will need continued inpatient hospitalization for management of acute GI bleed there may need further workup and close monitoring of hemoglobin and hematocrit Time Spent With Patient Time: Total time managing care of this patient today ____ minutes. Quality Stroke Does the patient have a stroke diagnosis?: No VTE Prior VTE?: No VTE Risk Level:: Medical - moderate - high VTE Device Contraindication: N/A - Device Ordered VTE Drug Contraindication: Treatment Not Tolerated
[2023-06-12 12:18] LABS: Appearance Urine Turbid; Color Urine Dark Yellow; Glucose Urine UA Negative (Negative); Leukocyte Esterase Urine Moderate (2+) (Negative); Nitrite Urine Positive (Negative); PH 5.5 (5.0-9.0); Specific Gravity - Urine 1.025 (1.005-1.025); UMIC TRIGGER UACC YES; Urine Blood Moderate (2+) (Negative); Urine Ketones Negative (Negative); Urine Protein Trace mg/dL (Neg-Trace)
[2023-06-12 12:26] LABS: Bacteria Urine 3+ (None Seen); Hyaline Casts Urine 0-2 /LPF (0-2); RBC Urine >20 /HPF (0-2); Squamous Epithelial Cell Urine 0-2 /HPF (0-2); UACC Culture Trigger YES
[2023-06-12 16:21] LABS: Glucose, Whole Blood 146 mg/dL (60-115)
[2023-06-12] MEDS: 0.9 % Sodium Chloride Flush 3 ML SYRINGE IVFLUSH ×2 (17:13→20:56)
[2023-06-12 19:46] LABS: Glucose, Whole Blood 160 mg/dL (60-115)
[2023-06-13] VITALS (10 sets, daily range): BP systolic 112–150; BP diastolic 54–76; PULSE 82–107; RESP 14–20; TEMP 36.5–37.7; O2SAT 95–99
[2023-06-13] MEDS: Lactated Ringers 1,000 ML 100 ML IVCONT (06:37)
[2023-06-13] MEDS: Pantoprazole Sodium 40 MG/10 ML VIAL IVPUSH (06:42)
[2023-06-13 07:02] LABS: Glucose, Whole Blood 110 mg/dL (60-115)
[2023-06-13] MEDS: Atorvastatin Calcium 40 MG TABLET PO (08:37)
[2023-06-13] MEDS: Metoprolol Tartrate 50 MG TABLET PO ×2 (08:37→17:10)
[2023-06-13] MEDS: 0.9 % Sodium Chloride Flush 3 ML SYRINGE IVFLUSH ×2 (08:38→16:55)
[2023-06-13 08:53] LABS: Hematocrit 29.6 % (37.0-47.0); Hemoglobin 9.8 g/dl (12.0-16.0); Mean Corpuscular HGB Conc 33.1 g/dl (31.0-35.0); Mean Corpuscular Hemoglobin 34.3 pg (27.0-33.0); Mean Corpuscular Volume 103.5 fL (80.0-98.0); Mean Platelet Volume 10.4 fL (9.4-12.3); Platelet Count 107 X10*3/uL (160-400); Red Blood Count 2.86 X10*6/uL (4.20-5.50); Red Cell Distribution Width 13.4 % (11.0-16.0); White Blood Count 8.8 X10*3/uL (4.8-10.8)
[2023-06-13 09:09] LABS: Anion Gap 13 (12-20); Blood Urea Nitrogen 45 mg/dL (9-16); Carbon Dioxide 24 mmol/L (22-29); Chloride 110 mmol/L (96-108); Creatinine Clr Calc Pharmacy 42.1; Estimated Glomerular Filt Rate > 60; Glucose Random 110 mg/dL (60-115); Potassium 3.5 mmol/L (3.3-5.1); Sodium 143 mmol/L (135-145)
--- NOTE | 2023-06-13 10:30 | HO.ANESPROP2 ---
HPI - Anesthesia Eval Consult details Narrative: egd to roule out upper gi bleed PMFSH Active Problems Active Problems: All Active Problems (Updated 06/11/23 @ 23:21 by Angel Dillon MD) Acute blood loss anemia (Acute) Hyperglycemia (Acute) OLMAN (acute kidney injury) (Acute) Atrial fibrillation with RVR (Acute) GI bleed (Acute) Chronic anticoagulation (Acute) Syncope (Acute) HTN (hypertension) (Acute) Status post transcatheter aortic valve replacement (Acute) Chronic atrial fibrillation (Acute) Current use of anticoagulant therapy (Acute) Past Medical History Medical History Diabetes mellitus HTN (hypertension) Chronic atrial fibrillation Family History Family History Father CVD (cardiovascular disease) Mother CVD (cardiovascular disease) Family history of problems with anesthesia: No Surgical History Surgical History Status post transcatheter aortic valve replacement History of Problems with Anesthesia: No Social History Social History Household Members: Spouse Housing: House Do you presently have visiting nurse or other home services: No Patient Tobacco Use Status: Never used Tobacco Use of substances other than those prescribed or required for medical reasons: No Currently Displaying Signs/Symptoms of Drug Intoxication Withdrawal: No Have you been hit, kicked, punched, or otherwise hurt by someone within the past year? If so, by whom?: No Do you feel safe in your current relationship?: Yes Is there a partner from a previous relationship who is making you feel unsafe now?: No Are you made to feel afraid or neglected: No Are you DNR?: No Advance Directives: No Advance Directives Information Provided: No Do you have thoughts of harming others: None Do you have a plan to hurt others: No Plan Recently lost weight without trying: No Nutrition Risks: No Nutritional Risk Patient : No : No Poor oral hygiene: No service: No Meds Allergies Allergy/AdvReac Type Severity Reaction Status Date / Time fish derived Allergy Severe ANAPHYLAXIS Verified 02/22/23 14:01 TO NON-CRUSTACEAN FISH adhesive tape [ADHESIVE TAPE] Allergy Unknown RASH Verified 02/22/23 14:01 atropine Allergy Unknown UNKNOWN Verified 02/22/23 14:01 ALLERGY TO ATROPINE EYE DROPS Sulfa (Sulfonamide Allergy Unknown UNKNOWN Verified 02/22/23 14:01 Antibiotics) tobramycin Allergy Unknown UNKNOWN Verified 02/22/23 14:01 ALLERGY TO TOBRAMYCIN EYE DROPS brimonidine [Combigan] AdvReac Unknown IRRITATION Verified 02/22/23 14:01 Non-Crusteacean Fish Allergy Unknown UNKNOWN Uncoded 02/22/23 14:01 STEROIDS Allergy Unknown WILL CAUSE Uncoded 02/22/23 14:01 EYE PRESSURE AND BLINDNESS Active Medications: Current Medications Atorvastatin Calcium (Atorvastatin Calcium 40 Mg Tablet) 40 mg PO DAILY [facility] Last Admin: 06/13/23 08:37 Dose: 40 mg Dextrose (Dextrose 50 % 25 Gm/50 Ml Syringe) 25 gm IVPUSH Q15M PRN; Protocol PRN Reason: per Hypoglycemia Standing Ord. Glucose (Glucose Gel 15 Gm Gel..Gram.) 15 gm PO Q15M PRN; Protocol PRN Reason: per Hypoglycemia Standing Ord. Lactated Ringer's (Lr) 1,000 mls @ 100 mls/hr IVCONT .Q10H [facility] Last Admin: 06/13/23 06:37 Dose: 100 mls/hr Lactated Ringer's (Lr) 1,000 mls @ 50 mls/hr IVCONT .Q20H [facility] Insulin Human Lispro (Insulin Lispro 100 Unit/Ml 3 Ml Vial) 0 unit SUBCUT QIDACHS [facility]; Protocol Last Admin: 06/13/23 07:21 Dose: Not Given Metoprolol Tartrate (Metoprolol Tartrate 50 Mg Tablet) 50 mg PO BID [facility]; Protocol Last Admin: 06/13/23 08:37 Dose: 50 mg Pantoprazole Sodium (Pantoprazole Sodium 40 Mg/10 Ml Vial) 40 mg IVPUSH BID@0630,1630 [facility] Last Admin: 06/13/23 06:42 Dose: 40 mg Sodium Chloride (0.9 % Sodium Chloride Flush 3 Ml Syringe) 3 ml IVFLUSH QSHIFT [facility] Last Admin: 06/13/23 08:38 Dose: 3 ml Home Medications Medication Instructions Recorded Confirmed Last Taken Type hydrochlorothiazide 25 mg tablet 25 mg PO DAILY 12/15/20 06/11/23 06/11/23 History simvastatin 80 mg tablet 80 mg PO QAM 12/15/20 06/11/23 06/11/23 History glyburide 1.25 mg tablet 1.25 mg PO QAM 05/11/21 06/11/23 06/11/23 History enalapril maleate 2.5 mg tablet 2.5 mg PO DAILY 11/16/21 06/11/23 06/11/23 History omeprazole 20 mg capsule,delayed 20 mg PO DAILY 06/11/23 06/11/23 06/11/23 History release vibegron 75 mg tablet (Gemtesa) 75 mg PO DAILY 06/11/23 06/11/23 06/11/23 History Exam Exam Date and Time: June 13, 2023 1030 Height,Weight and Vital Signs: Height 5 ft 3 in Weight 66.6 kg Last Vital Signs Temp 99.8 F 06/13/23 10:28 Pulse 98 06/13/23 10:28 Resp 16 06/13/23 10:28 BP 150/65 H 06/13/23 10:28 Pulse Ox 99 06/13/23 10:28 O2 Del Method Room Air 06/13/23 10:28 Pertinent Lab Results Pertinent Lab Results: Laboratory Tests 06/11/23 06/11/23 06/11/23 18:08 21:46 22:00 WBC 15.2 H RBC 3.24 L Hgb 11.2 L Hct 33.1 L MCV 102.2 H MCH 34.6 H MCHC 33.8 RDW 13.5 Plt Count 144 L MPV 10.1 Immature Gran % (Auto) 0.5 H Neut % (Auto) 86.5 H Lymph % (Auto) 4.8 L Dale % (Auto) 8.1 Eos % (Auto) 0.0 Baso % (Auto) 0.1 Lymph # (Auto) 0.7 L Dale # (Auto) 1.2 Eos # (Auto) 0.0 Baso # (Auto) 0.0 Abs Immat Gran (auto) 0.07 H Absolute Neuts (auto) 13.1 H Absolute Nucleated RBC 0.000 Nucleated RBC % (auto) 0.0 PT 20.6 H INR 1.7 H Sodium 140 Potassium 4.3 Chloride 102 Carbon Dioxide 21 L Anion Gap 21 H BUN 62 H Creatinine 2.10 H Estim Creat Clear Calc 15.9 Estimated GFR 22 POC Glucose Random Glucose 303 H Calcium 8.8 Total Bilirubin 1.2 H AST 27 ALT 23 Alkaline Phosphatase 85 Troponin I High Sens 38.7 H B-Natriuretic Peptide 162 H Total Protein 5.8 L Albumin 3.2 L Vitamin B12 Folate Urine Color Urine Appearance Urine pH Ur Specific [place] Urine Protein Urine Glucose (UA) Urine Ketones Urine Blood Urine Nitrite Ur Leukocyte Esterase Urine RBC Urine WBC Ur Squamous Epith Cells Urine Bacteria Hyaline Casts Urine Yeast COVID-19 (ISIS) Negative COVID-19 Clin Com See Note Blood Type B Positive Antibody Screen NEGATIVE 06/11/23 06/12/23 06/12/23 22:52 05:20 07:31 WBC 11.0 H 6.2 RBC 2.73 L 3.02 L Hgb 9.4 L 10.4 L Hct 28.0 L 31.9 L MCV 102.6 H 105.6 H MCH 34.4 H 34.4 H MCHC 33.6 32.6 RDW 13.5 13.5 Plt Count 109 L 25 L D MPV 10.2 11.9 Immature Gran % (Auto) Neut % (Auto) Lymph % (Auto) Dale % (Auto) Eos % (Auto) Baso % (Auto) Lymph # (Auto) Dale # (Auto) Eos # (Auto) Baso # (Auto) Abs Immat Gran (auto) Absolute Neuts (auto) Absolute Nucleated RBC 0.000 0.000 Nucleated RBC % (auto) 0.0 0.0 PT INR Sodium 142 Potassium 3.9 Chloride 108 Carbon Dioxide 23 Anion Gap 15 BUN 63 H Creatinine 1.58 H Estim Creat Clear Calc 21.1 Estimated GFR 31 POC Glucose 149 H Random Glucose 178 H Calcium 8.4 Total Bilirubin AST ALT Alkaline Phosphatase Troponin I High Sens 50.4 H* 36.4 H B-Natriuretic Peptide Total Protein Albumin Vitamin B12 1508 H Folate 14.8 Urine Color Urine Appearance Urine pH Ur Specific [place] Urine Protein Urine Glucose (UA) Urine Ketones Urine Blood Urine Nitrite Ur Leukocyte Esterase Urine RBC Urine WBC Ur Squamous Epith Cells Urine Bacteria Hyaline Casts Urine Yeast COVID-19 (ISIS) COVID-19 Clin Com Blood Type Antibody Screen 06/12/23 06/12/23 06/12/23 08:12 10:54 12:06 WBC RBC Hgb Hct MCV MCH MCHC RDW Plt Count MPV Immature Gran % (Auto) Neut % (Auto) Lymph % (Auto) Dale % (Auto) Eos % (Auto) Baso % (Auto) Lymph # (Auto) Dale # (Auto) Eos # (Auto) Baso # (Auto) Abs Immat Gran (auto) Absolute Neuts (auto) Absolute Nucleated RBC Nucleated RBC % (auto) PT INR Sodium Potassium Chloride Carbon Dioxide Anion Gap BUN Creatinine Estim Creat Clear Calc Estimated GFR POC Glucose 141 H 128 H Random Glucose Calcium Total Bilirubin AST ALT Alkaline Phosphatase Troponin I High Sens B-Natriuretic Peptide Total Protein Albumin Vitamin B12 Folate Urine Color Dark Yellow Urine Appearance Turbid Urine pH 5.5 Ur Specific [place] 1.025 Urine Protein Trace Urine Glucose (UA) Negative Urine Ketones Negative Urine Blood Moderate (2+) H Urine Nitrite Positive H Ur Leukocyte Esterase Moderate (2+) H Urine RBC >20 H Urine WBC 11-20 H Ur Squamous Epith Cells 0-2 Urine Bacteria 3+ Hyaline Casts 0-2 Urine Yeast Present COVID-19 (ISIS) COVID-[employer] Blood Type Antibody Screen 06/12/23 06/12/23 06/13/23 16:16 19:36 06:59 WBC RBC Hgb Hct MCV MCH MCHC RDW Plt Count MPV Immature Gran % (Auto) Neut % (Auto) Lymph % (Auto) Dale % (Auto) Eos % (Auto) Baso % (Auto) Lymph # (Auto) Dale # (Auto) Eos # (Auto) Baso # (Auto) Abs Immat Gran (auto) Absolute Neuts (auto) Absolute Nucleated RBC Nucleated RBC % (auto) PT INR Sodium Potassium Chloride Carbon Dioxide Anion Gap BUN Creatinine Estim Creat Clear Calc Estimated GFR POC Glucose 146 H 160 H 110 Random Glucose Calcium Total Bilirubin AST ALT Alkaline Phosphatase Troponin I High Sens B-Natriuretic Peptide Total Protein Albumin Vitamin B12 Folate Urine Color Urine Appearance Urine pH Ur Specific [place] Urine Protein Urine Glucose (UA) Urine Ketones Urine Blood Urine Nitrite Ur Leukocyte Esterase Urine RBC Urine WBC Ur Squamous Epith Cells Urine Bacteria Hyaline Casts Urine Yeast COVID-19 (ISIS) [employer] Blood Type Antibody Screen 06/13/23 08:32 WBC 8.8 RBC 2.86 L Hgb 9.8 L Hct 29.6 L MCV 103.5 H MCH 34.3 H MCHC 33.1 RDW 13.4 Plt Count 107 L D MPV 10.4 Immature Gran % (Auto) Neut % (Auto) Lymph % (Auto) Dale % (Auto) Eos % (Auto) Baso % (Auto) Lymph # (Auto) Dale # (Auto) Eos # (Auto) Baso # (Auto) Abs Immat Gran (auto) Absolute Neuts (auto) Absolute Nucleated RBC 0.000 Nucleated RBC % (auto) 0.0 PT INR Sodium 143 Potassium 3.5 Chloride 110 H Carbon Dioxide 24 Anion Gap 13 BUN 45 H Creatinine 0.88 Estim Creat Clear Calc 42.1 Estimated GFR > 60 POC Glucose Random Glucose 110 Calcium 8.0 L Total Bilirubin AST ALT Alkaline Phosphatase Troponin I High Sens B-Natriuretic Peptide Total Protein Albumin Vitamin B12 Folate Urine Color Urine Appearance Urine pH Ur Specific [place] Urine Protein Urine Glucose (UA) Urine Ketones Urine Blood Urine Nitrite Ur Leukocyte Esterase Urine RBC Urine WBC Ur Squamous Epith Cells Urine Bacteria Hyaline Casts Urine Yeast COVID-19 (ISIS) COVID-19 Clin Com Blood Type Antibody Screen Airway Mallampati Class: Patient Non-Cooperative TM Dist: >3cm Heart: irreg Lungs: cta Assessment and Plan Assessment Anesthesia Assessment: Anesthesia Plan Discussed and Chart Reviewed Final Anesthetic Review Family History of Problems with Anesthesia: No History of Problems with Anesthesia: No NPO: Yes ASA Class: III Final Preanesthetic Review: No Changes in Pt Med Stat, Meds/Allgs Chart Reviewed, Consent Obtained/Reviewed and Anes Risks/Benef Reviewed Patient Risk: High Procedure Risk: Intermediate Anesthetic Plan Anesthetic Plan: MAC: and Agree w/ Assess. and Plan Disposition: Standard PACU
--- NOTE | 2023-06-13 10:43 | MHC.SHP ---
Pre-Procedural Eval Section A Date of Service: 06/13/23 The patient is an INPATIENT: Yes The History & Physical has been completed within 30 days and I have reviewed it.: Yes Section B Chief Complaint: Syncope, GI Bleed Allergies: Allergies Allergy/AdvReac Type Severity Reaction Status Date / Time fish derived Allergy Severe ANAPHYLAXIS Verified 02/22/23 14:01 TO NON-CRUSTACEAN FISH adhesive tape [ADHESIVE TAPE] Allergy Unknown RASH Verified 02/22/23 14:01 atropine Allergy Unknown UNKNOWN Verified 02/22/23 14:01 ALLERGY TO ATROPINE EYE DROPS Sulfa (Sulfonamide Allergy Unknown UNKNOWN Verified 02/22/23 14:01 Antibiotics) tobramycin Allergy Unknown UNKNOWN Verified 02/22/23 14:01 ALLERGY TO TOBRAMYCIN EYE DROPS brimonidine [Combigan] AdvReac Unknown IRRITATION Verified 02/22/23 14:01 Non-Crusteacean Fish Allergy Unknown UNKNOWN Uncoded 02/22/23 14:01 STEROIDS Allergy Unknown WILL CAUSE Uncoded 02/22/23 14:01 EYE PRESSURE AND BLINDNESS Plan Diagnosis/Plan: Unchanged I have reviewed the history and physical and performed a pertinent physical examination on my patient. No changes have occurred unless specified. Time Spent With Patient Time: Total time managing care of this patient today ____ minutes.
--- NOTE | 2023-06-13 10:43 | W.PM.OPN ---
Operative Note Operative Note Date of Service: 06/13/23 Narrative: Procedure: Esophagogastroduodenoscopy Endoscopist: Amanda Weir MD Indication: GIB Anesthesia Provider: Dr Bo Munoz Anesthesia Type: MAC ?? EGD Procedure:?? The procedure, indications, preparation and potential complications were reviewed with the patient, who indicated understanding and gave written informed consent to proceed. A physical exam was performed. The endoscope was introduced through the mouth, and advanced to the second part of duodenum. The mucosa was carefully examined on slow withdrawal of the endoscope. The patient tolerated the procedure well. There were no immediate complications.? ? EGD Findings:? Esophagus:? An island of abnormal salmon colored mucosa spanning 1 cm was noted at 28 cm. Cold forceps biopsies were taken for histology. The esophagogastric anastomosis was noted at 30 cm. Stomach:? Scattered polyps were noted in the fundus of the stomach, mucosa otherwise normal. Duodenum:? Normal mucosa was noted in the whole of the examined duodenum. ? EGD Impressions:? Abnormal SCM at 28 cm suspicious for BE (biopsy) Evidence of prior surgery with normal EG anastomosis Gastric polyps Normal duodenum ?? Recommendations:?? Follow biopsy results. Our office will call or send a letter with results within 7-10 days. Okay to resume anticoagulation today. Avoid NSAIDs. Above has been reviewed with the patient.
--- NOTE | 2023-06-13 16:13 | HO.PM.IMPN ---
Subjective Subjective Date of Service: 06/13/23 Interval History: Return from upper endoscopy, awake alert offers no acute complaints daughter and at bedside, patient denies nausea vomiting no abdominal pain, denies lightheadedness or dizziness but has been mostly in bed, no chest pain, no palpitations. Review of Systems All other systems reviewed and negative. Physical Exam Vital Signs: Vital Signs: Last Vital Signs Temp 98.0 F 06/13/23 15:02 Pulse 93 06/13/23 15:02 Resp 18 06/13/23 15:02 BP 140/68 H 06/13/23 15:02 Pulse Ox 99 06/13/23 15:02 O2 Del Method Room Air 06/13/23 15:02 BMI result Body Mass Index 26.0 Const: Other: General awake alert x3 resting comfortably in no acute distress. Neck supple no JVD. CVS regular rate rhythm, Respiratory lungs clear to auscultation, no respiratory distress, no wheeze, no rhonchi. Gastrointestinal abdomen soft, nontender, bowel sounds audible, no guarding , no rigidity. Extremities no edema. Neuro nonfocal Skin no rash Psych appropriate affect Objective Data Active Medications Atorvastatin Calcium (Atorvastatin Calcium 40 Mg Tablet) 40 mg PO DAILY [facility] Last Admin: 06/13/23 08:37 Dose: 40 mg Documented By: SAGAR Dextrose (Dextrose 50 % 25 Gm/50 Ml Syringe) 25 gm IVPUSH Q15M PRN; Protocol PRN Reason: per Hypoglycemia Standing Ord. Glucose (Glucose Gel 15 Gm Gel..Gram.) 15 gm PO Q15M PRN; Protocol PRN Reason: per Hypoglycemia Standing Ord. Insulin Human Lispro (Insulin Lispro 100 Unit/Ml 3 Ml Vial) 0 unit SUBCUT QIDACHS [facility]; Protocol Last Admin: 06/13/23 12:10 Dose: Not Given Documented By: SAGAR Non-Admin Reason: No Insulin Coverage Metoprolol Tartrate (Metoprolol Tartrate 50 Mg Tablet) 50 mg PO BID [facility]; Protocol Last Admin: 06/13/23 08:37 Dose: 50 mg Documented By: SAGAR Pantoprazole Sodium (Pantoprazole Sodium 40 Mg/10 Ml Vial) 40 mg IVPUSH BID@0630,1630 [facility] Last Admin: 06/13/23 06:42 Dose: 40 mg Documented By: HO.CHOIP Sodium Chloride (0.9 % Sodium Chloride Flush 3 Ml Syringe) 3 ml IVFLUSH QSHIFT [facility] Last Admin: 06/13/23 08:38 Dose: 3 ml Documented By: SAGAR Labs 06/13/23 08:32 06/13/23 08:32 Labs: Laboratory Results - last 24 hr 06/12/23 06/12/23 06/13/23 16:16 19:36 06:59 MCV MCH MCHC RDW Plt Count MPV Absolute Nucleated RBC Nucleated RBC % (auto) Anion Gap Estim Creat Clear Calc Estimated GFR POC Glucose 146 H 160 H 110 Random Glucose Calcium 06/13/23 06/13/23 06/13/23 08:32 12:06 16:01 MCV 103.5 H MCH 34.3 H MCHC 33.1 RDW 13.4 Plt Count 107 L D MPV 10.4 Absolute Nucleated RBC 0.000 Nucleated RBC % (auto) 0.0 Anion Gap 13 Estim Creat Clear Calc 42.1 Estimated GFR > 60 POC Glucose 98 167 H Random Glucose 110 Calcium 8.0 L Microbiology Microbiology Results: Microbiology 06/12/23 Unknown Urine Culture - Final Urine clean catch - Urine gold top Assessment and Plan (1) Acute blood loss anemia: Status: Acute (2) OLMAN (acute kidney injury): Status: Acute Plan 87-year-old female with a chronic atrial fibrillation anticoagulated with Eliquis presenting with fall and vomiting blood pre syncope, likely related to dehydration, generalized weakness, , DC IV fluids, no arrhythmia on office support, consulted PT Acute GI bleed--underwent upper endoscopy by Dr. Weir noted to have abnormal salmon-colored mucosa in esophagus biopsies sent for pathology otherwise noted to have gastric polyps and normal duodenum no active bleeding noted GI recommend to resume anticoagulation today and avoid NSAIDs GI will inform patient with results within 7-10 days Will DC IV PPI, inform family about endoscopy results acute blood loss anemia--mild, no indication for transfusion at this time, repeat hematocrit stable OLMAN--last Creatinine in 2019 was 1, creatinine back to baseline DC IV fluids . chronic persistent atrial fibrillation--EKG showed atrial fibrillation, rate controlled on Metroprolol, resume Eliquis as above hypertension-- stable blood pressure continue metoprolol, hold HCTZ , will resume vasotec. hyperlipidemia-continue Lipitor diabetes--stable blood sugars less than 150, hold glyburide, continue SSI, resume glyburide at a.m. since will place back on diabetic diet today Leukocytosis--resolved was likely reactive, UA not collected DVT prophylaxis--compression device Full code Patient will need continued inpatient hospitalization for management of acute kidney injury, GI bleed need PT evaluation and safe disposition . Time Spent With Patient Time: Total time managing care of this patient today ____ minutes. Quality Stroke Does the patient have a stroke diagnosis?: No VTE Prior VTE?: No VTE Risk Level:: Medical - moderate - high VTE Device Contraindication: N/A - Device Ordered VTE Drug Contraindication: Treatment Not Tolerated
[2023-06-13] MEDS: Insulin Lispro 100 UNIT/ML 3 ML VIAL SUBCUT (16:55)
--- NOTE | 2023-06-13 17:11 | PC.NURSE ---
Addendum entered by Anastasia Gibson RN 06/13/23 18:10: Dose administered 1 hour ago; HR now high 90s- low 100s. Original Note: Pt in rapid Afib 150s-160s while ambulating to bathroom. Pt asymptomatic at this time. Once back to bed, HR down to 110s. MD notified. MD order to give 2100 dose of metoprolol 50 mg early, at 1715; dose administered. Effect pending at this time.
[2023-06-14 03:47] VITALS: BP 144/62; PULSE 100; RESP 18; TEMP 37; O2SAT 99
[2023-06-14 07:56] VITALS: BP 144/62; PULSE 100; O2SAT 99
[2023-06-14 08:00] VITALS: BP 114/65; PULSE 108; RESP 20; TEMP 37.1; O2SAT 99
--- NOTE | 2023-06-14 08:42 | HO.POSTANES ---
Post Anesthesia Evaluation Post Anesthesia Evaluation Date of Service: 06/14/23 Vital Signs: Vital Signs Temp Pulse Resp BP Pulse Ox O2 Del Method 06/14/23 08:00 98.7 F 108 H 20 114/65 99 Room Air 06/14/23 07:56 100 144/62 H 99 06/14/23 03:47 98.6 F 100 18 144/62 H 99 Room Air 06/13/23 23:27 98.9 F 101 H 18 146/64 H 99 Room Air Anesthesia: Monitored Mental Status: Awake Pain Control: Satisfactory Nausea/Vomiting: None Hydration: Adequate Anesthesia-Related Issues: No Anes. Related Issues
[2023-06-14] MEDS: Atorvastatin Calcium 40 MG TABLET PO (10:42)
[2023-06-14] MEDS: Metoprolol Tartrate 50 MG TABLET PO (10:42)
[2023-06-14] MEDS: 0.9 % Sodium Chloride Flush 3 ML SYRINGE IVFLUSH (10:43)
--- NOTE | 2023-06-14 10:49 | W.MHC.F2F ---
Service Date Service Date: 06/14/23 Encounter Date of encounter: 06/14/23 Reasons for Services Signs and symptoms assessed: Functional mobility, lower extremity weakness Reason for physical therapy: home safety and mobility and gait/transfer training Homebound: Leaving the home is medically contraindicated at this time without the asist of a device and/or another person due th the listed conditions above and below. Reason homebound: unsteady gait / fall risk Homebound supporting statement: Lower extremity weakness/fall Certification: Based on the above findings, I certify that this patient is confined to the home and needs intermittent custodial care, physical therapy and/or speech therapy, or continues to need occupational therapy. The patient is under my care, and I have initiated the establishment of the plan of care. The patient will be followed by a physician who will periodically review the plan of care. Time Spent With Patient Time: Total time managing care of this patient today ____ minutes.
--- NOTE | 2023-06-14 10:51 | PM.DS ---
DS: Providers Provider Date of Service: 06/14/23 Date of admission: 06/11/23 23:26 Primary care physician: Erika Malone MD Consults: 06/11/23 22:41 Consult to Gastroenterology Routine Consulting Provider: Amanda Weir Reason for consultation: GIB bleeding, anemia Has provider been notified: No DS: Diagnosis Discharge Diagnosis (1) Acute blood loss anemia: Status: Acute (2) OLMAN (acute kidney injury): Status: Acute DS: Summary Hospital Course Hospital Course: History of presenting illness: Date of Service: 06/11/23 Chief Complaint: Syncope 87-year-old female with a chronic atrial fibrillation anticoagulated with Eliquis, history of severe aortic valve stenosis status post transcatheter aortic valve replacement, hypertension, hyperlipidemia. Patient was brought to the emergency room following a fall at home at home. And according to her daughter and at the bedside, she has not been feeling well since last weekend, with low energy, poor apetite and increase weak. She has gone to the bathroom and came back when she felt dizziness, and lower herself to the floor, no head injury, and in that process also vomited and state that there was blood in it although he has difficulty quantifying it. Initial hemoglobin was 11, repeat 4 hours later 9, troponin i is 38, no chest pain. Hospital course: 87-year-old female with a chronic atrial fibrillation anticoagulated with Eliquis presenting with fall and vomiting blood admitted to intermediate Care Unit with a diagnosis presyncope likely related to dehydration, generalized weakness, no acute infection noted, had leukocytosis likely reactive resolved, treated with IV fluids monitor car operator showed no arrhythmia patient seen by Physical therapy and they recommending home PT for unsteady gait and lower extremity weakness Acute GI bleed--underwent upper endoscopy by Dr. Weir noted to have abnormal salmon-colored mucosa in esophagus biopsies sent for pathology otherwise noted to have gastric polyps and normal duodenum, no active bleeding noted GI recommend to resume anticoagulation and avoid NSAIDs GI will inform patient with results within 7-10 days, will place patient on Prilosec 20 mg daily, patient and family informed about upper endoscopy results. acute blood loss anemia--mild, patient did not require blood transfusion hematocrit remains stable. OLMAN--likely pre renal resolved with IV fluid recommend to discontinue hydrochlorothiazide . chronic persistent atrial fibrillation--EKG showed atrial fibrillation, rate controlled on Metroprolol, continue Eliquis for anticoagulation hypertension-- stable blood pressure continue metoprolol, and vasotec. hyperlipidemia-continue statins diabetes--stable blood sugars less than 150, continue home medications. Time Spent with Patient Time attestation: Total time managing care of this patient today ____ minutes. Discharge coordination time: Greater than 30 minutes Quality: Safe Use of Opioids Does Pt have an Active Cancer Diagnosis on the Problem List?: No Quality: Stroke Does the patient have a stroke diagnosis?: No Physical Exam Vital Signs: Vital Signs: Last Vital Signs Temp 98.7 F 06/14/23 08:00 Pulse 108 H 06/14/23 08:00 Resp 20 06/14/23 08:00 BP 114/65 06/14/23 08:00 Pulse Ox 99 06/14/23 08:00 O2 Del Method Room Air 06/14/23 08:00 BMI result Body Mass Index 26.0 Const: Other: General awake alert x3 resting comfortably in no acute distress. Neck supple no JVD. CVS regular rate rhythm, Respiratory lungs clear to auscultation, no respiratory distress, no wheeze, no rhonchi. Gastrointestinal abdomen soft, non tender, bowel sounds audible, no guarding , no rigidity. Extremities no edema. Neuro non focal Skin no rash Psych appropriate affect DS: Data Data Completed and Pending Pending studies at discharge: Pending at discharge 06/13/23 11:04 Surgical [PTH] Routine Labs on day of discharge: Laboratory Results - last 24 hr 06/13/23 06/13/23 06/13/23 12:06 16:01 20:15 WBC RBC Hgb Hct MCV MCH MCHC RDW Plt Count MPV Absolute Nucleated RBC Nucleated RBC % (auto) POC Glucose 98 167 H 148 H TSH 06/14/23 06/14/23 06:52 08:21 WBC 9.9 RBC 2.81 L Hgb 9.5 L Hct 28.9 L MCV 102.8 H MCH 33.8 H MCHC 32.9 RDW 13.5 Plt Count 104 L MPV 10.4 Absolute Nucleated RBC 0.000 Nucleated RBC % (auto) 0.0 POC Glucose 197 H TSH 1.58 Discharge Plan Discharge Anticipated Discharge Date/Time: 06/14/23 09:57 Patient Disposition: Home Health Service Discharge Diagnosis: Acute GI bleed Presyncope Acute blood loss anemia Acute kidney injury Referrals: Erika Malone MD [Primary Care Provider] - 1 Week Discharge Medications: New omeprazole 20 mg capsule,delayed release(DR/EC) 20 mg PO DAILY Qty: 30 0RF Continued metoprolol tartrate 50 mg tablet 50 mg PO BID 90 Days Qty: 180 3RF Eliquis 5 mg tablet 5 mg PO BID 30 Days Qty: 60 3RF Gemtesa 75 mg tablet 75 mg PO DAILY omeprazole 20 mg Capsule,Delayed Release(Dr/Ec) 20 mg PO DAILY simvastatin 80 mg tablet 80 mg PO QAM glyburide 1.25 mg tablet 1.25 mg PO QAM enalapril maleate 2.5 mg tablet 2.5 mg PO DAILY Discontinued hydrochlorothiazide 25 mg tablet 25 mg PO DAILY Discharge Orders: Discharge Order (Routine); Ordered 06/14/23 Ordered By: Huma Gongora Diet: Diabetic diet Activity on Discharge: As tolerated Stand Alone Forms: Patient Portal Discharge page Care Plan Goals: Take Prilosec 1 tablet daily avoid Advil Motrin and similar medications stop hydrochlorothiazide follow blood pressure You are being discharged with physical therapy and need forward wheeled walker Health Concerns: Continue all other home medications Plan of Treatment: Follow-up with primary care physician Assessment: As above
[2023-06-14 11:08] VITALS: BP 136/75; PULSE 108; RESP 20; TEMP 37; O2SAT 99
--- NOTE | 2023-06-14 15:48 | MHC.CM.PN ---
Pt medically cleared for D/C home with new [facility] for PT, ([facility] is preferred). Family to transport her home.
== END 2023-06-14 11:20 | disposition home health service (06) | DRG 394 ==
LOC: HO.ED 19:24 → HO.EDOVER 23:29 → HO.IMC 06-12 07:12
PROVIDERS: Internal Medicine; Admitting Provider Internal Medicine; Emergency Provider Student in an Organized Health Care Education/Training Program; PCP Family Medicine; Visit Provider Hospitalist
PROC: 0DJ08ZZ Inspection of Upper Intestinal Tract, Via Natural or Artificial Opening Endoscopic (ICD-10-PCS; CPT 43235; principal; 2023-06-13 14:00)
DX: K31.7 Polyp of stomach and duodenum (principal); D62 Acute posthemorrhagic anemia; K92.2 Gastrointestinal hemorrhage, unspecified; N17.9 Acute kidney failure, unspecified; I48.19 Other persistent atrial fibrillation; I10 Essential (primary) hypertension; E11.9 Type 2 diabetes mellitus without complications; Z20.822 Contact with and (suspected) exposure to COVID-19; Z98.0 Intestinal bypass and anastomosis status; Z95.2 Presence of prosthetic heart valve; Z79.01 Long term (current) use of anticoagulants; Z79.84 Long term (current) use of oral hypoglycemic drugs; Z79.899 Other long term (current) drug therapy
CPT/HCPCS: 36415; 70450; 71045; 72125; 74176; 80048; 80053; 81001; 82607; 82746; 82947; 83880; 84443; 84484; 85025; 85027; 85610; 86850; 86900; 86901; 87086; 87635; 88305; 93005; 97162; 99285

== ENCOUNTER → 2023-06-11 19:21 | Outpatient (BNV) | payer MEDICARE, BC, SELFPAY | PROVIDERS: Emergency Provider Student in an Organized Health Care Education/Training Program; Visit Provider Internal Medicine | DX: N17.9 Acute kidney failure, unspecified (principal); D62 Acute posthemorrhagic anemia | CPT/HCPCS: 99223; 99233; 99239; G0180 ==

== ENCOUNTER → 2023-06-11 23:26 | Outpatient (BNV) | payer MEDICARE, BC, SELFPAY | PROVIDERS: Admitting Provider Internal Medicine; Emergency Provider Student in an Organized Health Care Education/Training Program; Visit Provider Internal Medicine | DX: K92.2 Gastrointestinal hemorrhage, unspecified (principal); K31.7 Polyp of stomach and duodenum; Z98.0 Intestinal bypass and anastomosis status | CPT/HCPCS: 43239; 99223 ==

== ENCOUNTER 2023-08-22 14:10 | Outpatient (AMB) | payer MEDICARE, BC, SELFPAY ==
[2023-08-22 14:49] VITALS: BP 120/62; PULSE 84
--- NOTE | 2023-08-22 14:49 | MHC.OFFVIS ---
Intake Vital Signs 08/22/23 14:49 Height 5 ft 3 in BP 120/62 Blood Pressure Location Lt brachial Position Sitting Pulse 84 Pulse Source Pulse Oximeter Intake Visit Reasons: f/up [facility] and [facility] Character Impersonator Required: No Abattoir Manager: Abattoir Manager Present Allergies fish derived Allergy (Severe, Verified 08/22/23 14:52) ANAPHYLAXIS TO NON-CRUSTACEAN FISH adhesive tape [ADHESIVE TAPE] Allergy (Unknown, Verified 08/22/23 14:52) RASH atropine Allergy (Unknown, Verified 08/22/23 14:52) UNKNOWN ALLERGY TO ATROPINE EYE DROPS Sulfa (Sulfonamide Antibiotics) Allergy (Unknown, Verified 08/22/23 14:52) UNKNOWN tobramycin Allergy (Unknown, Verified 08/22/23 14:52) UNKNOWN ALLERGY TO TOBRAMYCIN EYE DROPS brimonidine [Combigan] Adverse Reaction (Unknown, Verified 08/22/23 14:52) IRRITATION Non-Crusteacean Fish Allergy (Unknown, Uncoded 02/22/23 14:01) UNKNOWN STEROIDS Allergy (Unknown, Uncoded 02/22/23 14:01) WILL CAUSE EYE PRESSURE AND BLINDNESS Medication List - Last Reconciled 08/22/23 by Tory Byrne NP-C apixaban (Eliquis) 5 mg PO BID 30 days enalapril maleate 2.5 mg PO DAILY furosemide 20 mg PO DAILY glyburide 1.25 mg PO QAM metoprolol tartrate 50 mg PO BID 90 days omeprazole 20 mg PO DAILY simvastatin 80 mg PO QAM vibegron (Gemtesa) 75 mg PO DAILY HPI f/up [facility] and [facility] Details Lilliana is an 88-year-old female past medical history of hypertension, diabetes, chronic atrial fibrillation, aortic stenosis status post TAVR who was recently admitted to [facility] after having fall and with concern for GI bleed. She did undergo upper endoscopy with no signs of bleeding noted. Her anticoagulation had initially been held then restarted prior to discharge. Following discharge she was admitted to [facility] with reports of edema. Her HCTZ had been held upon [facility] discharge. Her diuretics were then restarted, she spent time in rehab and she now presents for follow-up. Today she reports she has been doing well since her discharge from rehab. She continues to have home PT and OT. She has some mild weakness. No concerning shortness of breath, chest discomfort, heart palpitations. No presyncope, syncope, falls. No PND, orthopnea or edema. Taking meds as directed. Daughter is present. [facility] Medical History Atrial fibrillation with RVR Chronic anticoagulation Current use of anticoagulant therapy Diabetes mellitus HTN (hypertension) Chronic atrial fibrillation Surgical History Status post transcatheter aortic valve replacement Family History Father CVD (cardiovascular disease) Mother CVD (cardiovascular disease) Social History Household Members: Spouse Housing: House Do you presently have visiting nurse or other home services: No Patient Tobacco Use Status: Never used Tobacco service: No Review of Systems Const Details: Mild weakness since her hospital discharge All systems reviewed & are unremarkable except as noted in HPI and below Reports fatigue ENT Denies dizziness Card Denies chest pain, Denies chest pain at rest, Denies chest pain with activity, Denies rapid heart rate, Denies pedal edema, Denies edema, Denies leg edema, Denies lightheadedness, Denies palpitations, Denies dyspnea, Denies dyspnea on exertion and Denies orthopnea Resp Denies cough, Denies dyspnea and Denies dyspnea on exertion GI Denies hematochezia and Denies change in stool character Musc Denies abnormal gait, Denies limited range of motion, Denies muscle cramps, Reports muscle weakness, Denies numbness, Denies radiating pain into limb, Denies stiffness and Denies tingling Neuro Denies abnormal gait, Denies dizziness, Denies numbness and Denies tingling Endo Reports fatigue and Denies palpitations Physical Exam Vital Signs: Last Vital Signs Pulse 84 08/22/23 14:49 BP 120/62 08/22/23 14:49 Const General: cooperative, healthy appearing, comfortable and no acute distress Orientation/consciousness: patient oriented x3 Neck Neck: Yes normal visual inspection Resp Effort & Inspection: normal respiratory effort Auscultation: clear to auscultation bilaterally, no rales, no rhonchi and no wheezes Cardio Jugular venous distension: no JVD Rate: regular rate Rhythm: regular rhythm Heart sounds: S1 normal heart sound present, S2 normal heart sound present, no murmurs and no rubs Neuro General: patient oriented x3 Extrem General: Yes normal to inspection Psych Appearance: grossly normal Mental Status: mental status grossly normal Speech and movement: Normal speech and movement present Assessment & Plan Assessment & Plan (1) Chronic atrial fibrillation: Code(s): I48.20 - Chronic atrial fibrillation, unspecified Plan: History of chronic atrial fibrillation. On metoprolol for heart rate control. Pulse in normal range today. No reports of heart palpitations. She is on Eliquis for anticoagulation. She did have [facility] admission with concern for upper GI bleed. She did undergo an upper endoscopy showing no signs of active bleeding. Her anticoagulation was briefly held then resumed. No bleeding issues reported at this time. Continue current med management. (2) Current use of anticoagulant therapy: Code(s): Z79.01 - snf (current) use of anticoagulants Plan: On Eliquis for anticoagulation. Dose of 5 mg b.i.d. is appropriate for her weight and creatinine. (3) History of transcatheter aortic valve replacement (TAVR): Code(s): Z95.2 - Presence of prosthetic heart valve Plan: History of severe aortic stenosis. She underwent TAVR in recent past. Last echocardiogram done 02/01/2023 shows EF 56%, bioprosthetic AVR functioning normally. No heart murmur noted on exam. She states she did have an echocardiogram when she was recently admitted at [facility]. Will try to obtain that record. (4) HTN (hypertension): Code(s): I10 - Essential (primary) hypertension Plan: Well controlled at present time. No med changes made (5) Hospital discharge follow-up: Code(s): Z09 - Encounter for follow-up examination after completed treatment for conditions other than malignant neoplasm Plan: As above Plan Time spent on chart review, documentation, interview and assessment Coding Level of Care Code Est Pt Level 4 (67007) Diagnoses Chronic atrial fibrillation I48.20 Current use of anticoagulant therapy Z79.01 History of transcatheter aortic valve replacement (TAVR) Z95.2 HTN (hypertension) I10 Hospital discharge follow-up Z09 Time Spent (min) 30
== END 2023-08-22 16:25 | disposition home or self-care (01) ==
PROVIDERS: PCP Family Medicine; Visit Provider Nurse Practitioner Family
DX: I48.20 Chronic atrial fibrillation, unspecified (principal); Z79.01 Long term (current) use of anticoagulants; Z95.2 Presence of prosthetic heart valve; I10 Essential (primary) hypertension; Z09 Encounter for follow-up examination after completed treatment for conditions other than malignant neoplasm
CPT/HCPCS: 99214

== ENCOUNTER → 2023-08-22 14:10 | Outpatient (BNVA) | payer MEDICARE, BC, SELFPAY | PROVIDERS: PCP Family Medicine; Visit Provider Nurse Practitioner Family | DX: Z09 Encounter for follow-up examination after completed treatment for conditions other than malignant neoplasm (principal); I48.20 Chronic atrial fibrillation, unspecified; I10 Essential (primary) hypertension; Z79.01 Long term (current) use of anticoagulants; Z95.2 Presence of prosthetic heart valve | CPT/HCPCS: 99212 ==

== ENCOUNTER 2023-12-10 12:36 | Inpatient (IN) | payer MEDICARE, BC, SELFPAY ==
[2023-12-10] VITALS (31 sets, daily range): BP systolic 69–207; BP diastolic 36–177; PULSE 92–133; RESP 18–33; TEMP 36.6–38.2; O2SAT 90–99; BMI 24.0
--- NOTE | ~2023-12-10 | US_ITS ---
EXAMINATION: US ABDOMEN LIMITED CLINICAL INFORMATION: Hyperbilirubinemia, sepsis, cholecystitis. COMPARISON: CT abdomen/pelvis 12/11/2023. TECHNIQUE: Real-time imaging of the gallbladder. FINDINGS: Sludge and stones layering in the gallbladder neck. Borderline diffuse gallbladder wall thickening measuring up to 0.4 cm. Negative Campbell's sign. Partially seen common bile duct of normal caliber measuring up to 0.4 cm. Small amount of pericholecystic free fluid which is nonspecific in the context of ascites. US/US abdomen limited IMPRESSION: Cholelithiasis with borderline diffuse gallbladder wall thickening and small amount of pericholecystic free fluid which is nonspecific in the context of ascites. If there is clinical concern for acute cholecystitis, correlation with a nuclear medicine study could be obtained.
--- NOTE | ~2023-12-10 | XR_ITS ---
EXAMINATION: XR CHEST CLINICAL INFORMATION: Central venous catheter placement. COMPARISON: Chest radiograph earlier today 2:05 PM. TECHNIQUE: Frontal view of the chest was obtained. FINDINGS: Left IJ CVC tip projects at the level of the superior cavoatrial junction. Stable prominence of the cardiomediastinal silhouette. Redemonstration of TAVR. Stable slightly increased diffuse interstitial markings. No focal consolidation, pleural effusion or pneumothorax. No acute osseous findings. Epigastric surgical abdominal clips are seen. XR/XR chest 1V IMPRESSION: 1. Left IJ CVC tip projects at the level of the superior cavoatrial junction. 2. No pneumothorax. 3. Stable slightly increased interstitial markings.
--- NOTE | ~2023-12-10 | US_ITS ---
EXAMINATION: US ABDOMEN LIMITED CLINICAL INFORMATION: Elevated LFTs.. COMPARISON: None available. TECHNIQUE: Real-time imaging of the right upper quadrant abdominal viscera. FINDINGS: GALLBLADDER: There are multiple radiopaque gallstones with mild gallbladder wall thickening measuring 0.4 cm. No richelle gallbladder fluid collection seen. COMMON BILE DUCT: Normal in caliber measuring 0.4 cm in diameter. US/US abdomen limited IMPRESSION: Cholelithiasis with mild wall thickening.
--- NOTE | ~2023-12-10 | CT_ITS ---
EXAMINATION: CT ABDOMEN AND PELVIS WITHOUT CONTRAST CLINICAL INFORMATION: Obstructive uropathy COMPARISON: Ultrasound abdomen 12/10/2023 CT abdomen pelvis 06/11/2023 TECHNIQUE: Multidetector volumetric imaging was performed from the superior aspect of the liver through the pubic symphysis. Sagittal and coronal reformatted images were obtained on the technologist's workstation. This CT examination was performed using dose optimization techniques as appropriate, variously including the following: *Automated exposure control *Adjustment of mA and/or kV according to patient size (this includes techniques or standardized protocols for targeted exams where dose is matched to indication/reason for exam; i.e. extremities or head) *Use of iterative reconstruction technique DLP: 472 mGy-cm FINDINGS: LUNG BASES: Compared to the 06/11/2023 study there are new bilateral pleural effusions which are small, right greater than left. Bibasilar atelectasis is present. LIVER, GALLBLADDER, AND BILIARY TREE: A small to moderate amount of ascites is present which is new compared to the prior study. The liver is normal in size, shape, and attenuation. No focal hepatic lesion or biliary ductal dilatation is present. The gallbladder contains multiple gallstones and possibly a thickened wall but without gross pericholecystic inflammatory changes. PANCREAS: There is some fatty replacement of the pancreas. SPLEEN: Unremarkable with a small splenic granuloma. ADRENAL GLANDS: Unremarkable. KIDNEYS AND URETERS: The kidneys are normal in size, shape, and attenuation. 2 mm punctate calcifications seen at the upper pole of the left kidney (6:66). No hydronephrosis, hydroureter, or additional calculi seen. There is a punctate 2.5 mm calcification is seen in the region of the left ureter which was also present on the 06/11/2023 study. I do not believe that this is actually in the ureter but probably represents a phlebolith in the gonadal vein. No perinephric stranding. A probable benign 1 cm hyperattenuating Bosniak class I renal cyst (3:21) is noted which requires no additional imaging or follow up. This is unchanged when compared to 06/11/2023 (3:154) No solid renal masses are seen. BLADDER: Godinez catheter is present in a symmetrically thickened bladder. GASTROINTESTINAL TRACT: A small hiatal hernia is present The small and large bowel are unremarkable. The appendix is not seen but there is no evidence of appendicitis evidence of appendicitis. ABDOMINAL WALL: No significant hernia is appreciated. LYMPH NODES: No retroperitoneal lymphadenopathy. VASCULAR: Calcific atherosclerotic changes are present in the aorta and iliofemoral vessels. There is no evidence of an abdominal aortic aneurysm. PELVIC VISCERA: The uterus and adnexa are unremarkable. OSSEOUS STRUCTURES: Degenerative changes are present throughout the spine. There is a compression fracture involving the superior endplate of L4 which is unchanged when compared to 06/11/2023. CT/CT abdomen pelvis wo IV con IMPRESSION: 1. New bilateral pleural effusions, right greater than left. 2. New small to moderate amount of ascites. 3. Cholelithiasis with possible thickened gallbladder wall. 4. Nonobstructing 2 mm left upper pole renal calculus. 5. Other incidental findings as described above. Fleischner guidelines were followed.
--- NOTE | ~2023-12-10 | XR_ITS ---
EXAMINATION: XR CHEST CLINICAL INFORMATION: Generalized weakness with rapid atrial fibrillation COMPARISON: Chest 06/11/2023 TECHNIQUE: AP upright portable view of the chest was obtained. 2:09 PM FINDINGS: An external patch overlies the right upper lobe. A TAVR stent is noted. There is no focal consolidation, interstitial pulmonary edema or pneumothorax. No pleural effusion. Bilateral bronchial wall thickening is again noted. The cardiomediastinal silhouette is stable. No acute osseous abnormality. Calcific density adjacent to the left humeral head is consistent with calcific tendinitis. XR/XR chest 1V IMPRESSION: No acute cardiopulmonary disease.
--- NOTE | ~2023-12-10 | CT_ITS ---
EXAMINATION: CT HEAD WITHOUT CONTRAST CLINICAL INFORMATION: Altered mental status. Dysarthria. COMPARISON: 06/11/2023. TECHNIQUE: Contiguous axial imaging was performed from the skull base to vertex without intravenous administration of contrast. This CT examination was performed using dose optimization techniques as appropriate, variously including the following: *Automated exposure control *Adjustment of mA and/or kV according to patient size (this includes techniques or standardized protocols for targeted exams where dose is matched to indication/reason for exam; i.e. extremities or head) *Use of iterative reconstruction technique DLP: 885 mGy-cm FINDINGS: There is cerebral volume loss with prominence of the lateral and the third ventricles. The cortical sulci are widened appropriately. The fourth ventricle and basal cisterns are normally outlined. There is mild bilateral periventricular and central white matter diminished attenuation. There is no acute territorial defect, hemorrhage or midline shift. The extra-axial spaces are unremarkable. Calvarium: Intact. Maxillofacial sinuses and mastoids: There are ethmoid and sphenoid sinus opacities/mucosal thickening. CT/CT head/brain wo IV con IMPRESSION: 1. Cerebral volume loss and mild chronic microangiopathy. 2. No acute territorial defect, hemorrhage or midline shift. 3. Ethmoid and sphenoid sinus disease.
--- NOTE | ~2023-12-10 | US_ITS ---
EXAMINATION: US EXTRACRANIAL CAROTID DUPLEX, BILATERAL CLINICAL INFORMATION: CVA COMPARISON: None available. TECHNIQUE: Real-time ultrasound and Doppler techniques (integrating B-mode 2-D vascular images, Doppler spectral analysis and color-flow Doppler imaging) were utilized to interrogate the extracranial carotid arteries, the vertebral arteries and proximal subclavian arteries on the right. The left neck (aside from the subclavian artery) could not be imaged secondary to the patient's bandages The degree of stenosis is determined by criteria similar to NASCET. FINDINGS: Right Side: 1. There is mild calcified shadowing atherosclerotic plaque seen in the bifurcation/proximal ICA region. 2. The common carotid artery PSV proximally is 4 cm/s and distally 91 cm/s. 3. The proximal internal carotid artery velocities are 95 cm/s systolic and 35 cm/s diastolic. 4. The proximal external carotid artery PSV is 69 cm/s. 5. The vertebral artery shows antegrade flow. 6. The subclavian artery waveforms are normal. Left Side: 1. The subclavian artery waveforms are normal. US/US carotid duplex BI IMPRESSION: 1. RIGHT: Minimal, non-hemodynamically significant stenosis of the proximal right internal carotid artery corresponding to a 0-49% stenosis by velocity criteria. 2. LEFT: Not adequately examined .
--- NOTE | 2023-12-10 12:39 | ECG_ITS ---
Test Reason : afib Blood Pressure : / mmHG Vent. Rate : 128 BPM Atrial Rate : 000 BPM P-R Int : 000 ms QRS Dur : 086 ms QT Int : 326 ms P-R-T Axes : 000 -60 053 degrees QTc Int : 475 ms Atrial fibrillation with rapid ventricular response Left axis deviation Anterolateral infarct (cited on or before 11-JUN-2023) Abnormal ECG When compared with ECG of 11-JUN-2023 18:16, No significant change was found Referred By: Generic ED Physician Electronically Signed By:ARACELIS ZHOU MD
[2023-12-10] MEDS: 0.9 % Sodium Chloride 1,000 ML 500 ML IV (12:55)
[2023-12-10] MEDS: Digoxin 0.5 MG/2 ML AMPUL 0.25 MG IVPUSH (12:59)
--- NOTE | 2023-12-10 13:05 | ED_ITS ---
HPI - General Adult General Chief complaint: Altered Mental Status Stated complaint: WEAK,AFIB/RVR PER EMS Time Seen by Provider: 12/10/23 12:42 Source: patient and EMS Mode of arrival: EMS Limitations: no limitations History of Present Illness HPI narrative: Lilliana is an 88-year-old female past medical history of hypertension, diabetes, chronic atrial fibrillation, aortic stenosis status post TAVR , take metoprolol and Eliquis among other medications EMS was called for generalized weakness for day, I was called by EMS as signal 600 for patient's hypotension and rapid atrial fibrillation to get a verbal order of cardioversion, I recommended against cardioversion at the scene and advised to give 500 cc of normal saline and transport patient sushila, on arrival patient still hypotensive was heart rate ranging 120s to 150s, patient is AAO x3, looking pale patient declined any active bleeding was not sure about stool color, patient also initially found to be febrile 100.7 with no subjective fever , no chills, no black stool, no abdominal pain, no CP, no SOB. Related Data Home Medications Medication Instructions Recorded Confirmed simvastatin 80 mg tablet 80 mg PO QAM 12/15/20 12/10/23 glyburide 1.25 mg tablet 1.25 mg PO QAM 05/11/21 12/10/23 enalapril maleate 2.5 mg tablet 2.5 mg PO DAILY 11/16/21 12/10/23 omeprazole 20 mg capsule,delayed 20 mg PO DAILY 06/11/23 12/10/23 release vibegron 75 mg tablet (Gemtesa) 75 mg PO DAILY 06/11/23 12/10/23 furosemide 20 mg tablet 20 mg PO DAILY 08/22/23 12/10/23 Prevagen Extra Strength 1 tab PO DAILY 12/10/23 12/10/23 cyanocobalamin (vitamin B-12) 1,000 mcg PO DAILY 12/10/23 12/10/23 1,000 mcg tablet vit C 250 mg-vit E 90 mg-zinc 40 1 tab PO BID 12/10/23 12/10/23 mg-copper 1 [id number] capsule (PreserVision AREDS-2) vitamin E 268 mg (400 unit) capsule 268 mg PO DAILY 12/10/23 12/10/23 Previous Rx's Medication Instructions Recorded apixaban 5 mg tablet (Eliquis) 5 mg PO BID 90 days #180 tabs 08/23/23 metoprolol tartrate 50 mg tablet 50 mg PO BID #180 tabs 09/03/23 Allergies Allergy/AdvReac Type Severity Reaction Status Date / Time fish derived Allergy Severe ANAPHYLAXIS Verified 08/22/23 14:52 TO NON-CRUSTACEAN FISH adhesive tape [ADHESIVE TAPE] Allergy Unknown RASH Verified 08/22/23 14:52 atropine Allergy Unknown UNKNOWN Verified 08/22/23 14:52 ALLERGY TO ATROPINE EYE DROPS Sulfa (Sulfonamide Allergy Unknown UNKNOWN Verified 08/22/23 14:52 Antibiotics) tobramycin Allergy Unknown UNKNOWN Verified 08/22/23 14:52 ALLERGY TO TOBRAMYCIN EYE DROPS brimonidine [Combigan] AdvReac Unknown IRRITATION Verified 08/22/23 14:52 Non-Crusteacean Fish Allergy Unknown UNKNOWN Uncoded 02/22/23 14:01 STEROIDS Allergy Unknown WILL CAUSE Uncoded 02/22/23 14:01 EYE PRESSURE AND BLINDNESS Review of Systems 2 Review of Systems: all other systems are reviewed and are negative Constitutional: Reports as per HPI and Reports no additional constitutional complaints Eyes: Reports as per HPI and Reports no additional eye complaints Reports system reviewed and no additional complaints, except as documented Cardiovascular: Reports as per HPI and Reports no additional cardiovascular complaints Respiratory: Reports as per HPI and Reports no additional respiratory complaints Gastrointestinal: Reports as per HPI and Reports no additional gastrointestinal complaints Genitourinary: Reports no additional female genitourinary complaints Musculoskeletal: Reports no additional musculoskeletal complaints Skin/Breast: Reports system reviewed and no additional complaints, except as docu Psychiatric: Reports no additional psychiatric complaints Endocrine: Reports no additional endocrine complaints Hematologic/Lymphatic: Reports no additional hematologic/lymphatic complaints Allergic/Immunologic: Reports no additional allergic/immunologic complaints Reports system reviewed and no additional complaints, except as documented and Reports Abnormal speech present FOR[facility]LY [facility], [facility] Past Medical History Medical History Atrial fibrillation with RVR Current use of anticoagulant therapy Chronic anticoagulation Diabetes mellitus HTN (hypertension) Chronic atrial fibrillation Surgical History Status post transcatheter aortic valve replacement Family History Family History Father CVD (cardiovascular disease) Mother CVD (cardiovascular disease) Social History Social History Household Members: Spouse Housing: House Do you presently have visiting nurse or other home services: No Patient Tobacco Use Status: Never used Tobacco Smoked in Last 30 Days: No Use of substances other than those prescribed or required for medical reasons: No Have you been hit, kicked, punched, or otherwise hurt by someone within the past year? If so, by whom?: No Do you feel safe in your current relationship?: Yes Is there a partner from a previous relationship who is making you feel unsafe now?: No Shinto Healthcare Practices: Muslim Advance Directives: No Advance Directives Information Provided: No Do you have thoughts of harming others: None Do you have a plan to hurt others: No Plan Recently lost weight without trying: No Nutrition Risks: No Nutritional Risk Patient : No : No service: No Physical Exam ED Vital Signs: Vital Signs - 24 hr 12/10/23 12:40 12/10/23 12:56 12/10/23 14:03 Temperature 100.7 F H Pulse Rate 133 H 118 H 110 H Respiratory Rate 30 H 28 H 20 Blood Pressure 79/43 L 78/43 L 82/52 L Pulse Oximetry 98 97 Oxygen Delivery Method Room Air Room Air 12/10/23 15:21 12/10/23 15:49 Temperature 98.3 F Pulse Rate 113 H 114 H Respiratory Rate 18 18 Blood Pressure 91/43 L 79/44 L Pulse Oximetry 97 Oxygen Delivery Method Nasal Cannula BMI result Body Mass Index 24.0 Vital signs have been reviewed and appear to be correct. Blood pressure elevated. Heart rate rapid. Respiratory rate normal. Temperature normal. Oxygen saturation normal. Appearance: pale, Alert. Oriented X3. No acute distress. Head: Normal external exam. Normocephalic. Atraumatic. No Ring signs noted. No raccoon eyes noted Eyes: PERRLA. EOMI. Conjunctiva and sclera normal. Eyelids normal. ENT: TM's Normal. Pharynx normal. Uvula midline. Moist mucous membranes. No trismus noted. No drooling noted. No muffled voice noted. Neck: Normal inspection. Neck supple. FROM. No adenopathy. Thyroid Normal. No meningeal signs. No neck mass noted. CVS: Normal heart rate and rhythm. Heart sound normal. No murmurs noted. Pulses normal throughout. Respiratory: No respiratory distress. Painless inspiration. Breath sounds normal. No wheezes/rales/rhonchi noted. Chest nontender. No accessory muscle usage noted or decreased air movement noted. Abdomen: Soft and nontender. Bowel sounds normal in all 4 quadrants. No distention noted. No organomegaly noted. No visible injury noted. Rectal exam: Brown stool, no obvious blood in the stool, no hematochezia, no melena, occult blood is trace positive. Back: No CVA tenderness. Full range of motion noted. Skin: Skin warm and dry. Normal skin color. Normal skin turgor. No rashes/lesions/lacerations noted. Extremities: No lower extremity edema. Extremities exhibit normal range of motion. Extremities nontender. Neuro: Oriented X 3. Cranial nerve exam: II-XII are grossly intact No motor deficit. No sensory deficit. Reflexes normal. Course Reevaluation(s) Reevaluation #1: Patient is AAO x3, no CP, no SOB, continue with gentle hydration and pending blood transfusion awaiting for RBCs from blood bank. Will continue monitoring blood pressure. Case was consulted with Dr. Carreon recommended against cardioversion since atrial fibrillation is chronic and is not likely causing her hypotension. Time: 14:07 Reevaluation #2: I was called by the labs that repeat labs showing better hemoglobin, the 1st blood specimen is likely to be contaminated the blood was drawn from peripheral IV access that proximal to another IV that is running normal saline into it. therefore will cancel blood transfusion Time: 14:08 Reevaluation #3: patient is AAO x3, feels sleepy and tired did not sleep last night for frequent urination due to known UTI and frequent BR trips during the night. Complaining of no headache, no abdominal pain, found to have elevated LFTs will consider GB ultrasound. and daughter at the bedside now. Time: 15:05 Additional Reevaluation(s): 16:21: FOCUSED EXAM: Patient is sleepy but responds to examiner by calling her name, able to answer all questions appropriately, had elevated LFTs with no sonographic sign of acute cholecystitis and no abdominal pain or Campbell sign. chronic AFib not likely the cause of hypotension. Hypotension needed to urosepsis patient meet criteria for septic shock not responding to bolus of fluid will start pressor, given atrial fibrillation with RVR will try to avoid Levophed will start on phenylephrine. Septic shock: Patient received total [id number] cc of normal saline, ceftriaxone, will start on phenylephrine. Case discussed with Dr. Becerra and patient was accepted to ICU. Elevated troponin will consider repeat in 3 hours currently has no CP or SOB, EKG showing no ST changes to raised suspicion of STEMI, serial troponin check while patient in ICU. Medications Administered Generic Name Dose Route Start Last Admin Trade Name Freq PRN Reason Stop Dose Admin Phenylephrine HCl 20 mg/ 252 mls @ 0 mls/hr 12/10/23 16:15 12/10/23 20:19 Sodium Chloride IVCONT 3 mcg/kg/min .Q0M THEODORE 148.55 mls/hr Titration Protocol Per Protocol Sodium Bicarbonate 150 meq/ 1,000 mls @ 100 mls/hr 12/10/23 18:00 12/10/23 19:25 Dextrose IV 100 mls/hr .Q10H THEODORE Administration Albumin Human 100 mls @ 133.333 mls/hr 12/10/23 20:15 12/10/23 20:35 Kedbumin 25 % IV 12/10/23 21:59 133.33 mls/hr Q1H THEODORE Administration Piperacillin Sod/Tazobactam 50 mls @ 100 mls/hr 12/10/23 20:15 12/10/23 20:37 Sod 2.25 gm/ Sodium Chloride IV 100 mls/hr Q6H THEODORE Administration Insulin Human Lispro 0 unit 12/10/23 16:30 12/10/23 18:02 Insulin Lispro 100 Unit/Ml 3 Ml Vial SUBCUT Not Given QIDACHS [facility] Protocol Discontinued Medications Generic Name Dose Route Start Last Admin Trade Name Freq PRN Reason Stop Dose Admin Digoxin 0.25 mg 12/10/23 12:45 12/10/23 12:59 Digoxin 0.5 Mg/2 Ml Ampul IVPUSH 12/10/23 12:46 0.25 mg ONCE ONE Administration Sodium Chloride 1,000 mls @ 500 mls/hr 12/10/23 12:45 12/10/23 15:19 Ns IV 12/10/23 14:44 Infused .Q2H ONE Infusion Ceftriaxone Sodium 1 gm/ 50 mls @ 100 mls/hr 12/10/23 13:06 12/10/23 14:40 Sodium Chloride IV 12/10/23 13:35 Infused ONCE ONE Infusion Sodium Chloride 100 mls @ 100 mls/hr 12/10/23 13:12 12/10/23 14:20 Ns IV 12/10/23 14:11 Not Given ONCE ONE Sodium Chloride 100 mls @ 100 mls/hr 12/10/23 13:12 12/10/23 14:20 Ns IV 12/10/23 14:11 Not Given ONCE ONE Sodium Chloride 1,965 mls @ 1,965 mls/hr 12/10/23 14:12 12/10/23 15:49 Ns 30 ml/kg infuse over 1 hr (1965 ml) 12/10/23 15:11 Infused IV Infusion .Q1H STA Albumin Human 100 mls @ 133.333 mls/hr 12/10/23 16:15 12/10/23 19:22 Kedbumin 25 % IV 12/10/23 17:59 Infused Q1H THEODORE Infusion Sodium Bicarbonate 150 meq/ 1,000 mls @ 100 mls/hr 12/10/23 16:15 12/10/23 18:24 Sterile Water IV Not Given .Q10H THEODORE Levofloxacin 750 mg in 150 mls @ 100 mls/hr 12/10/23 16:15 12/10/23 19:38 Levaquin IV 12/10/23 17:44 Infused ONCE ONE Infusion Medical Decision Making Differential Diagnosis Differential Diagnoses: The differential diagnosis associated with the presentation includes (Septic shock, urosepsis, anemia, electrolyte derangement, AFib with RVR, dysrhythmia, acute cholecystitis, pneumonia, pneumothorax, CHF, ACS.) Admission/Observation Consideration of admission/observation: Escalation of care including admission/observation considered Consult Healthcare Provider Management of the patient was discussed with: [employer] (Dr. Carreon/ Dr. Becerra) Lab Data MDM Lab Attestation statement: I reviewed the patient's lab results. 12/10/23 17:13 12/10/23 13:56 Labs: Lab Results 12/10/23 12/10/23 12/10/23 Range/Units 12:42 12:52 12:53 WBC 11.8 H (4.8-10.8) X10*3/uL RBC 3.18 L (4.20-5.50) X10*6/uL Hgb 10.6 L (12.0-16.0) g/dl Hct 32.4 L (37.0-47.0) % MCV 105.6 H (80.0-98.0) fL MCH 33.3 H (27.0-33.0) pg MCHC 32.7 (31.0-35.0) g/dl RDW 15.8 (11.0-16.0) % Plt Count 60 L D (160-400) X10*3/uL MPV 9.9 (9.4-12.3) fL Immature Gran % (Auto) Cancelled Neut % (Auto) Cancelled Lymph % (Auto) Cancelled Real % (Auto) Cancelled Eos % (Auto) Cancelled Baso % (Auto) Cancelled Lymph # (Auto) Cancelled Real # (Auto) Cancelled Eos # (Auto) Cancelled Baso # (Auto) Cancelled Abs Immat Gran (auto) Cancelled Absolute Neuts (auto) Cancelled Absolute Nucleated RBC 0.000 (0.0-0.012) X10*3/uL Nucleated RBC % (auto) 0.0 (0.0-0.2) /100WBC Neutrophils % (Manual) 87 H (45-73) % Band Neutrophils % 9 H (3-5) % Lymphocytes % (Manual) 4 L (20-40) % Abs Neuts (Manual) 11.3 H (2.0-8.3) X10*3/uL Lymphocytes # (Manual) 0.5 L (1.2-4.9) X10*3/uL Toxic Vacuolation PRESENT Platelet Estimate DECREASED (NORMAL) Plt Morphology Comment NORMAL RBC Morphology NOTED Macrocytosis 1+ (5-14) /OIF Ovalocytes 1+ (5-14) /OIF [place] Cells 3+ (>5) /OIF Smear Path Review Cancelled PT 21.8 H (11.1-13.3) SEC INR 1.8 H (0.9-1.1) Sodium (135-145) mmol/L Potassium (3.3-5.1) mmol/L Chloride (96-108) mmol/L Carbon Dioxide (22-29) mmol/L Anion Gap (12-20) BUN (9-16) mg/dL Creatinine (0.5-1.4) mg/dL Estim Creat Clear Calc Estimated GFR POC Glucose 100 (60-115) mg/dL Random Glucose (60-115) mg/dL Lactic Acid (0.5-2.0) mmol/L Calcium (8.4-10.2) mg/dL Total Bilirubin (0.0-1.0) mg/dL Direct Bilirubin (0.0-0.5) mg/dL AST (5-31) U/L ALT (0-31) U/L Alkaline Phosphatase (39-117) U/L Troponin I High Sens (<3.5-17.0) ng/L B-Natriuretic Peptide (<100) pg/mL Total Protein (6.5-8.0) g/dL Albumin (3.5-5.0) g/dL Lipase (8-78) U/L Urine Color Urine Appearance Urine pH (5.0-9.0) Ur Specific [place] (1.005-1.025) Urine Protein (Neg-Trace) mg/dL Urine Glucose (UA) (Negative) mg/dL Urine Ketones (Negative) mg/dL Urine Blood (Negative) Urine Nitrite (Negative) Ur Leukocyte Esterase (Negative) Urine RBC (0-2) /HPF Urine WBC (0-5) /HPF Ur Squamous Epith Cells (0-2) /HPF Urine Bacteria (None Seen) Hyaline Casts (0-2) /LPF Stool Occult Blood (NEGATIVE) Influenza Type A (PCR) (Negative) Influenza Type B (PCR) (Negative) RSV RNA Qual (PCR) (Negative) SARS-CoV-2 RNA (RT-PCR) (Negative) Blood Type Antibody Screen Crossmatch 12/10/23 12/10/23 12/10/23 Range/Units 12:55 13:12 13:16 WBC (4.8-10.8) X10*3/uL RBC (4.20-5.50) X10*6/uL Hgb (12.0-16.0) g/dl Hct (37.0-47.0) % MCV (80.0-98.0) fL MCH (27.0-33.0) pg MCHC (31.0-35.0) g/dl RDW (11.0-16.0) % Plt Count (160-400) X10*3/uL MPV (9.4-12.3) fL Immature Gran % (Auto) Neut % (Auto) Lymph % (Auto) Real % (Auto) Eos % (Auto) Baso % (Auto) Lymph # (Auto) Real # (Auto) Eos # (Auto) Baso # (Auto) Abs Immat Gran (auto) Absolute Neuts (auto) Absolute Nucleated RBC (0.0-0.012) X10*3/uL Nucleated RBC % (auto) (0.0-0.2) /100WBC Neutrophils % (Manual) (45-73) % Band Neutrophils % (3-5) % Lymphocytes % (Manual) (20-40) % Abs Neuts (Manual) (2.0-8.3) X10*3/uL Lymphocytes # (Manual) (1.2-4.9) X10*3/uL Toxic Vacuolation Platelet Estimate (NORMAL) Plt Morphology Comment RBC Morphology Macrocytosis /OIF Ovalocytes /OIF [place] Cells /OIF Smear Path Review PT (11.1-13.3) SEC INR (0.9-1.1) Sodium (135-145) mmol/L Potassium (3.3-5.1) mmol/L Chloride (96-108) mmol/L Carbon Dioxide (22-29) mmol/L Anion Gap (12-20) BUN (9-16) mg/dL Creatinine (0.5-1.4) mg/dL Estim Creat Clear Calc Estimated GFR POC Glucose (60-115) mg/dL Random Glucose (60-115) mg/dL Lactic Acid (0.5-2.0) mmol/L Calcium (8.4-10.2) mg/dL Total Bilirubin (0.0-1.0) mg/dL Direct Bilirubin (0.0-0.5) mg/dL AST (5-31) U/L ALT (0-31) U/L Alkaline Phosphatase (39-117) U/L Troponin I High Sens (<3.5-17.0) ng/L B-Natriuretic Peptide (<100) pg/mL Total Protein (6.5-8.0) g/dL Albumin (3.5-5.0) g/dL Lipase (8-78) U/L Urine Color Yellow Urine Appearance Turbid Urine pH 6.5 (5.0-9.0) Ur Specific [place] 1.015 (1.005-1.025) Urine Protein 100 (2+) H (Neg-Trace) mg/dL Urine Glucose (UA) Negative (Negative) mg/dL Urine Ketones Negative (Negative) mg/dL Urine Blood Large (3+) H (Negative) Urine Nitrite Negative (Negative) Ur Leukocyte Esterase Large (3+) H (Negative) Urine RBC >20 H (0-2) /HPF Urine WBC >50 H (0-5) /HPF Ur Squamous Epith Cells 3-5 (0-2) /HPF Urine Bacteria 4+ (None Seen) Hyaline Casts 0-2 (0-2) /LPF Stool Occult Blood POSITIVE (NEGATIVE) Influenza Type A (PCR) NEGATIVE (Negative) Influenza Type B (PCR) NEGATIVE (Negative) RSV RNA Qual (PCR) NEGATIVE (Negative) SARS-CoV-2 RNA (RT-PCR) NEGATIVE (Negative) Blood Type Antibody Screen Crossmatch 12/10/23 Range/Units 13:56 WBC (4.8-10.8) X10*3/uL RBC (4.20-5.50) X10*6/uL Hgb (12.0-16.0) g/dl Hct (37.0-47.0) % MCV (80.0-98.0) fL MCH (27.0-33.0) pg MCHC (31.0-35.0) g/dl RDW (11.0-16.0) % Plt Count (160-400) X10*3/uL MPV (9.4-12.3) fL Immature Gran % (Auto) Neut % (Auto) Lymph % (Auto) Real % (Auto) Eos % (Auto) Baso % (Auto) Lymph # (Auto) Real # (Auto) Eos # (Auto) Baso # (Auto) Abs Immat Gran (auto) Absolute Neuts (auto) Absolute Nucleated RBC (0.0-0.012) X10*3/uL Nucleated RBC % (auto) (0.0-0.2) /100WBC Neutrophils % (Manual) (45-73) % Band Neutrophils % (3-5) % Lymphocytes % (Manual) (20-40) % Abs Neuts (Manual) (2.0-8.3) X10*3/uL Lymphocytes # (Manual) (1.2-4.9) X10*3/uL Toxic Vacuolation Platelet Estimate (NORMAL) Plt Morphology Comment RBC Morphology Macrocytosis /OIF Ovalocytes /OIF [place] Cells /OIF Smear Path Review PT (11.1-13.3) SEC INR (0.9-1.1) Sodium 136 (135-145) mmol/L Potassium 4.0 (3.3-5.1) mmol/L Chloride 108 (96-108) mmol/L Carbon Dioxide 14 L (22-29) mmol/L Anion Gap 18 (12-20) BUN 40 H (9-16) mg/dL Creatinine 2.51 H (0.5-1.4) mg/dL Estim Creat Clear Calc 14.2 Estimated GFR 18 POC Glucose (60-115) mg/dL Random Glucose 97 (60-115) mg/dL Lactic Acid 9.0 H* (0.5-2.0) mmol/L Calcium 7.7 L (8.4-10.2) mg/dL Total Bilirubin 1.2 H (0.0-1.0) mg/dL Direct Bilirubin 0.8 H (0.0-0.5) mg/dL AST 76 H (5-31) U/L ALT 57 H (0-31) U/L Alkaline Phosphatase 342 H (39-117) U/L Troponin I High Sens 52.5 H* (<3.5-17.0) ng/L B-Natriuretic Peptide 822 H (<100) pg/mL Total Protein 4.6 L (6.5-8.0) g/dL Albumin 2.3 L (3.5-5.0) g/dL Lipase 21 (8-78) U/L Urine Color Urine Appearance Urine pH (5.0-9.0) Ur Specific [place] (1.005-1.025) Urine Protein (Neg-Trace) mg/dL Urine Glucose (UA) (Negative) mg/dL Urine Ketones (Negative) mg/dL Urine Blood (Negative) Urine Nitrite (Negative) Ur Leukocyte Esterase (Negative) Urine RBC (0-2) /HPF Urine WBC (0-5) /HPF Ur Squamous Epith Cells (0-2) /HPF Urine Bacteria (None Seen) Hyaline Casts (0-2) /LPF Stool Occult Blood (NEGATIVE) Influenza Type A (PCR) (Negative) Influenza Type B (PCR) (Negative) RSV RNA Qual (PCR) (Negative) SARS-CoV-2 RNA (RT-PCR) (Negative) Blood Type B Positive Antibody Screen NEGATIVE Crossmatch See Detail Independent Interpretation I performed an independent interpretation of an: Plain X-Ray (Chest: No acute cardiopulmonary disease.) and Ultrasound (Abdomen:There are multiple radiopaque gallstones with mild gallbladder wall thickening measuring 0.4 cm. No richelle gallbladder fluid collection seen. ) Radiology Impression Discussion of test interpretation with radiology: I have reviewed the radiologist's reading. Chronic Conditions Patient?s care impacted by: Other (Chronic AFib) Critical Care Time Critical Care Time Critical Care Time: Yes Total Critical Care Time: 60 Attestation: I spent 60 minutes providing critical care service to the patient, this including time spent at the bedside to evaluate the patient, reassess the patient, monitoring vital signs, review labs, and radiographic studies, counseling the patient/family, discussing the case with consultants, disposition the patient. Discharge Plan Discharge Clinical Impression: Septic shock Patient Disposition: Admitted As Inpatient Interventions: Admission Worksheet (ED) Last Done: 12/10/23 17:21 Discharge Date/Time: 12/10/23 17:32
[2023-12-10 13:06] LABS: Mean Corpuscular Hemoglobin 33.3 pg (27.0-33.0); Mean Corpuscular Volume 105.6 fL (80.0-98.0); Red Cell Distribution Width 15.8 % (11.0-16.0)
[2023-12-10 13:29] LABS: Appearance Urine Turbid; Color Urine Yellow; Glucose Urine UA Negative (Negative); Leukocyte Esterase Urine Large (3+) (Negative); Nitrite Urine Negative (Negative); PH 6.5 (5.0-9.0); Specific Gravity - Urine 1.015 (1.005-1.025); UMIC TRIGGER UACC YES; Urine Blood Large (3+) (Negative); Urine Ketones Negative (Negative); Urine Protein 100 (2+) mg/dL (Neg-Trace)
[2023-12-10 13:42] LABS: Influenza A PCR NEGATIVE (Negative); Influenza B PCR NEGATIVE (Negative); Resp Syncy Virus RNA Qual PCR NEGATIVE (Negative); SARS COV2 PCR INHOUSE NEGATIVE (Negative)
[2023-12-10] MEDS: cefTRIAXone sodium 1 GM in 0.9 % Sodium Chloride 50 ML IV (13:57)
[2023-12-10 14:00] LABS: OBS Int Ctl Valid YES; OBS1 POSITIVE (NEGATIVE)
[2023-12-10 14:08] LABS: Hemoglobin 10.6 g/dl (12.0-16.0); Red Blood Count 3.18 X10*6/uL (4.20-5.50); White Blood Count 11.8 X10*3/uL (4.8-10.8)
[2023-12-10 14:09] LABS: Hematocrit 32.4 % (37.0-47.0); Mean Corpuscular HGB Conc 32.7 g/dl (31.0-35.0); Platelet Count 60 X10*3/uL (160-400)
[2023-12-10 14:10] LABS: Mean Platelet Volume 9.9 fL (9.4-12.3)
[2023-12-10 14:13] LABS: Band Neutrophils Percent 9 % (3-5); Burr Cells 3+ (>5) /OIF; Lymphocytes Absolute Manual 0.5 X10*3/uL (1.2-4.9); Lymphocytes Percent Manual 4 % (20-40); Macrocytosis 1+ (5-14) /OIF; Neutrophils Absolute Manual 11.3 X10*3/uL (2.0-8.3); Neutrophils Percent Manual 87 % (45-73); Ovalocytes 1+ (5-14) /OIF; RBC Morphology NOTED
[2023-12-10 14:13] LABS: Bacteria Urine 4+ (None Seen); Hyaline Casts Urine 0-2 /LPF (0-2); RBC Urine >20 /HPF (0-2); UACC Culture Trigger YES; WBC Urine >50 /HPF (0-5)
[2023-12-10 14:14] LABS: Platelet Estimate DECREASED (NORMAL); Platelet Morphology Comment NORMAL; Toxic Vacuolation PRESENT
[2023-12-10 14:19] LABS: Anion Gap 18 (12-20)
[2023-12-10 14:23] LABS: Alanine Aminotransferase 57 U/L (0-31); Albumin Level 2.3 g/dL (3.5-5.0); Alkaline Phosphatase 342 U/L (39-117); Aspartate Amino Transferase 76 U/L (5-31); Bilirubin Direct 0.8 mg/dL (0.0-0.5); Bilirubin Total 1.2 mg/dL (0.0-1.0); Blood Urea Nitrogen 40 mg/dL (9-16); Calcium 7.7 mg/dL (8.4-10.2); Carbon Dioxide 14 mmol/L (22-29); Chloride 108 mmol/L (96-108); Creatinine Clr Calc Pharmacy 14.2; Estimated Glomerular Filt Rate 18; Glucose Random 97 mg/dL (60-115); Lipase 21 U/L (8-78); Sodium 136 mmol/L (135-145); Total Protein 4.6 g/dL (6.5-8.0)
--- NOTE | 2023-12-10 14:23 | PC.NURSE ---
pt comes in from EMS after family called with pt minimally responsive. HR with EMS reported to initially be above 150, afib. upon arrival, HR had improved to approximatey 130 and pt was alert and oriented. Blood pressures have been consistently low 70s/40s. Fluid bolus ordered. labs drawn. Initial lab draw was contaminated. [employer] labs. 100.7 rectal temp, pt got ABX and fluid bolus.
[2023-12-10 14:28] LABS: Prothrombin Time 21.8 SEC (11.1-13.3)
[2023-12-10 14:29] LABS: INTERNATIONAL NORM RATIO 1.8 (0.9-1.1)
[2023-12-10 14:35] LABS: B Type Natriuretic Peptide 822 pg/mL (<100)
--- NOTE | 2023-12-10 14:39 | PC.NURSE ---
straight cath returned 700ml urine.
[2023-12-10 15:01] LABS: Reflex Lactate? Lactic Acid Added
[2023-12-10 16:13] LABS: Troponin-I High Sensitivity 52.5 ng/L (<3.5-17.0)
[2023-12-10] MEDS: Phenylephrine HCL 20 MG in 0.9 % Sodium Chloride 250 ML 24.76 MG IVCONT (16:20)
[2023-12-10] MEDS: Albumin Human 25 % 100 ML 133.33 ML IV ×4 (16:27→21:30)
--- NOTE | 2023-12-10 16:32 | P.HPCC_ITS ---
History of Present Illness Date of Service: 12/10/23 Chief Complaint: Hypotension, encephalopathy 88-year-old lady with underlying hypertension, diabetes mellitus, AFib on Eliquis, aortic stenosis status post TAVR with alteration of mental status and hypotension since the morning of admission. On ER evaluation patient hypotensive and AFib with RVR with heart rate in 110s, also leukocytosis with left shift, positive UA, elevated alkaline phosphatase, no evidence of hydronephrosis on abdominal imaging, but cholelithiasis with gallbladder wall thickening. Patient with poor response to initial IV fluid resuscitation requiring colloidal and vasopressor support. Started on empiric broad-spectrum antibiotics and admitted to the intensive care unit. Review of Systems 2 Review of Systems: Yes Unobtainable due to mental condition and Unobtainable due to mental status PMFSH Past Medical History Medical History (Updated 12/10/23 @ 16:35 by Shade Becerra MD) Atrial fibrillation with RVR Current use of anticoagulant therapy Chronic anticoagulation Diabetes mellitus HTN (hypertension) Chronic atrial fibrillation Family History Family History Father CVD (cardiovascular disease) Mother CVD (cardiovascular disease) Surgical History Surgical History Status post transcatheter aortic valve replacement Social History Social History Household Members: Spouse Housing: House Do you presently have visiting nurse or other home services: No Patient Tobacco Use Status: Never used Tobacco Smoked in Last 30 Days: No Use of substances other than those prescribed or required for medical reasons: No Advance Directives: No Advance Directives Information Provided: No service: No Meds Allergies Allergy/AdvReac Type Severity Reaction Status Date / Time fish derived Allergy Severe ANAPHYLAXIS Verified 08/22/23 14:52 TO NON-CRUSTACEAN FISH adhesive tape [ADHESIVE TAPE] Allergy Unknown RASH Verified 08/22/23 14:52 atropine Allergy Unknown UNKNOWN Verified 08/22/23 14:52 ALLERGY TO ATROPINE EYE DROPS Sulfa (Sulfonamide Allergy Unknown UNKNOWN Verified 08/22/23 14:52 Antibiotics) tobramycin Allergy Unknown UNKNOWN Verified 08/22/23 14:52 ALLERGY TO TOBRAMYCIN EYE DROPS brimonidine [Combigan] AdvReac Unknown IRRITATION Verified 08/22/23 14:52 Non-Crusteacean Fish Allergy Unknown UNKNOWN Uncoded 02/22/23 14:01 STEROIDS Allergy Unknown WILL CAUSE Uncoded 02/22/23 14:01 EYE PRESSURE AND BLINDNESS Active Medications: Current Medications Apixaban (Apixaban 5 Mg Tablet) 5 mg PO BID THEODORE Phenylephrine HCl 20 mg/ (Sodium Chloride) 252 mls @ 0 mls/hr IVCONT .Q0M THEODORE; Protocol Last Admin: 12/10/23 16:20 Dose: 0.5 mcg/kg/min, 24.76 mls/hr Albumin Human (Kedbumin 25 %) 100 mls @ 133.333 mls/hr IV Q1H THEODORE Stop: 12/10/23 17:59 Last Admin: 12/10/23 16:27 Dose: 133.33 mls/hr Levofloxacin (Levaquin) 750 mg in 150 mls @ 100 mls/hr IV ONCE ONE Stop: 12/10/23 17:44 Sodium Bicarbonate 150 meq/ (Sterile Water) 1,000 mls @ 100 mls/hr IV .Q10H THEOD[facility] Levofloxacin (Levaquin) 500 mg in 100 mls @ 100 mls/hr IV Q48H THE[facility] Insulin Human Lispro (Insulin Lispro 100 Unit/Ml 3 Ml Vial) 0 unit SUBCUT QIDACHS [facility]; Protocol Home Medications Medication Instructions Recorded Confirmed Last Taken Type simvastatin 80 mg tablet 80 mg PO QA 12/15/20 08/22/23 06/11/23 History glyburide 1.25 mg tablet 1.25 mg PO QA 05/11/21 08/22/23 06/11/23 History enalapril maleate 2.5 mg tablet 2.5 mg PO DAILY 11/16/21 08/22/23 06/11/23 History omeprazole 20 mg capsule,delayed 20 mg PO DAILY 06/11/23 08/22/23 06/11/23 History release vibegron 75 mg tablet (Gemtesa) 75 mg PO DAILY 06/11/23 08/22/23 06/11/23 History furosemide 20 mg tablet 20 mg PO DAILY 08/22/23 08/22/23 Unknown History Physical Exam 2 Vital Signs: Vital Signs: Last Vital Signs Temp 98.3 F 12/10/23 15:21 Pulse 113 H 04/02/24 16:20 Resp 18 12/10/23 15:49 BP 84/36 L 12/10/23 16:20 Pulse Ox 97 12/10/23 15:21 O2 Del Method Nasal Cannula 12/10/23 15:21 BMI result Body Mass Index 24.0 Const: General: no acute distress and lethargic Orientation/consciousness: lethargic Eyes: Sclerae: sclerae normal EOM: EOMs intact bilaterally Neck: Neck: Yes no lymphadenopathy, Yes trachea midline and Yes supple Resp: Effort & Inspection: normal respiratory effort and no respiratory distress Auscultation: clear to auscultation bilaterally Cardio: Rate: tachycardic Rhythm: abnormal rhythm irregularly irregular Heart sounds: no gallops, no murmurs and no rubs GI: Palpation (GI): Soft to palpation and Other GI palpation findings present ( Nontender) Auscultation: normal bowel sounds Extrem: General: Yes no pedal edema, No clubbing and No cyanosis Results Labs 12/10/23 12:52 12/10/23 13:56 Labs: Laboratory Results - last 24 hr 12/10/23 12/10/23 12/10/23 12:52 12:53 12:55 MCV 105.6 H MCH 33.3 H MCHC 32.7 RDW 15.8 Plt Count 60 L D MPV 9.9 Immature Gran % (Auto) Cancelled Neut % (Auto) Cancelled Lymph % (Auto) Cancelled [place] % (Auto) Cancelled Eos % (Auto) Cancelled Baso % (Auto) Cancelled Lymph # (Auto) Cancelled [place] # (Auto) Cancelled Eos # (Auto) Cancelled Baso # (Auto) Cancelled Abs Immat Gran (auto) Cancelled Absolute Neuts (auto) Cancelled Absolute Nucleated RBC 0.000 Nucleated RBC % (auto) 0.0 Neutrophils % (Manual) 87 H Band Neutrophils % 9 H Lymphocytes % (Manual) 4 L Abs Neuts (Manual) 11.3 H Lymphocytes # (Manual) 0.5 L Toxic Vacuolation PRESENT Platelet Estimate DECREASED Plt Morphology Comment NORMAL RBC Morphology NOTED Macrocytosis 1+ (5-14) Ovalocytes 1+ (5-14) [place] Cells 3+ (>5) Smear Path Review Cancelled PT 21.8 H INR 1.8 H Anion Gap Estim Creat Clear Calc Estimated GFR Random Glucose Lactic Acid Calcium Total Bilirubin Direct Bilirubin AST ALT Alkaline Phosphatase Troponin I High Sens B-Natriuretic Peptide Total Protein Albumin Lipase Urine Color Urine Appearance Urine pH Ur Specific [place] Urine Protein Urine Glucose (UA) Urine Ketones Urine Blood Urine Nitrite Ur Leukocyte Esterase Urine RBC Urine WBC Ur Squamous Epith Cells Urine Bacteria Hyaline Casts Stool Occult Blood Influenza Type A (PCR) NEGATIVE Influenza Type B (PCR) NEGATIVE RSV RNA Qual (PCR) NEGATIVE SARS-CoV-2 RNA (RT-PCR) NEGATIVE Blood Type Antibody Screen Crossmatch 12/10/23 12/10/23 12/10/23 13:12 13:16 13:56 MCV MCH MCHC RDW Plt Count MPV Immature Gran % (Auto) Neut % (Auto) Lymph % (Auto) [place] % (Auto) Eos % (Auto) Baso % (Auto) Lymph # (Auto) [place] # (Auto) Eos # (Auto) Baso # (Auto) Abs Immat Gran (auto) Absolute Neuts (auto) Absolute Nucleated RBC Nucleated RBC % (auto) Neutrophils % (Manual) Band Neutrophils % Lymphocytes % (Manual) Abs Neuts (Manual) Lymphocytes # (Manual) Toxic Vacuolation Platelet Estimate Plt Morphology Comment RBC Morphology Macrocytosis Ovalocytes [place] Cells Smear Path Review PT INR Anion Gap 18 Estim Creat Clear Calc 14.2 Estimated GFR 18 Random Glucose 97 Lactic Acid 9.0 H* Calcium 7.7 L Total Bilirubin 1.2 H Direct Bilirubin 0.8 H AST 76 H ALT 57 H Alkaline Phosphatase 342 H Troponin I High Sens 52.5 H* B-Natriuretic Peptide 822 H Total Protein 4.6 L Albumin 2.3 L Lipase 21 Urine Color Yellow Urine Appearance Turbid Urine pH 6.5 Ur Specific [place] 1.015 Urine Protein 100 (2+) H Urine Glucose (UA) Negative Urine Ketones Negative Urine Blood Large (3+) H Urine Nitrite Negative Ur Leukocyte Esterase Large (3+) H Urine RBC >20 H Urine WBC >50 H Ur Squamous Epith Cells 3-5 Urine Bacteria 4+ Hyaline Casts 0-2 Stool Occult Blood POSITIVE Influenza Type A (PCR) Influenza Type B (PCR) RSV RNA Qual (PCR) SARS-CoV-2 RNA (RT-PCR) Blood Type B Positive Antibody Screen NEGATIVE Crossmatch See Detail Imaging Radiologist's Impressions: Impressions Chest X-Ray 12/10/23 14:09 IMPRESSION: No acute cardiopulmonary disease. Abdomen Ultrasound 04/02/24 15:14 IMPRESSION: Cholelithiasis with mild wall thickening. Assessment and Plan (1) UTI (urinary tract infection): Status: Acute (2) Atrial fibrillation with RVR: Status: Acute (3) Septic shock: Status: Acute (4) Diabetes mellitus: Status: Acute (5) Current use of anticoagulant therapy: Status: Acute (6) OLMAN (acute kidney injury): Status: Resolved Plan Assessment: With 8-year-old lady being admitted with septic shock with GI versus source and likely reactive AFib with RVR Plan: Neuro: No acute issues. Cardiac: Septic shock, continue to titrate off pressor support as tolerated. AFib with RVR likely secondary to sepsis. Now heart rate is in 110s. Pulmonary: No acute issues. Renal: Acute kidney injury likely secondary to septic shock. Continue to monitor renal indices and urine output. Endo: No acute issues. GI: No acute issues. ID: Septic shock with GI versus source. Empirically covered with broad- spectrum antibiotics. Heme/Onc: No acute issues. Psych: No acute issues. Miscellaneous: No acute issues. Prophylaxis: Apixaban Diet: Regular Critical care time spent: 60 minutes
[2023-12-10 16:34] LABS: Glucose, Whole Blood 100 mg/dL (60-115)
[2023-12-10 16:38] LABS: Glucose, Whole Blood 78 mg/dL (60-115)
--- NOTE | 2023-12-10 16:38 | PHA.MEDREC ---
Pharmacy Consult ? Medication Reconciliation Pharmacy has completed the medication reconciliation. Patient's family confirmed medications based on claim history. Report not taking any medications today. Tracee Scott, PharmD
--- NOTE | 2023-12-10 16:44 | PC.NURSE ---
ALBUMIN AND PHENYLEPHRINE INFUSING PER MAR, WAITING FOR SODIUM BICARB FROM PHARMACY
[2023-12-10 17:45] LABS: Hematocrit 33.2 % (37.0-47.0); Hemoglobin 10.9 g/dl (12.0-16.0); Mean Corpuscular HGB Conc 32.8 g/dl (31.0-35.0); Mean Corpuscular Volume 100.6 fL (80.0-98.0); Mean Platelet Volume 10.3 fL (9.4-12.3); Platelet Count 66 X10*3/uL (160-400); Red Cell Distribution Width 15.9 % (11.0-16.0); White Blood Count 17.8 X10*3/uL (4.8-10.8)
[2023-12-10 17:46] LABS: Troponin-I High Sensitivity 107.5 ng/L (<3.5-17.0)
[2023-12-10 17:51] LABS: Glucose, Whole Blood 68 mg/dL (60-115)
[2023-12-10 18:14] LABS: Glucose, Whole Blood 78 mg/dL (60-115)
[2023-12-10 18:16] LABS: Band Neutrophils Percent 15 % (3-5); Lymphocytes Absolute Manual 1.1 X10*3/uL (1.2-4.9); Lymphocytes Percent Manual 6 % (20-40); Monocytes Absolute Manual 0.7 X10*3/uL (0.1-1.2); Monocytes Percent Manual 4 % (2-11); Neutrophils Percent Manual 75 % (45-73)
[2023-12-10 18:18] LABS: RBC Morphology NOTED
[2023-12-10 18:19] LABS: Burr Cells 3+ (>5) /OIF; Polychromasia 1+ (0-2) /OIF
[2023-12-10 18:20] LABS: Ovalocytes 1+ (5-14) /OIF; Platelet Estimate DECREASED (NORMAL)
[2023-12-10 18:21] LABS: Platelet Morphology Comment NORMAL
[2023-12-10] MEDS: levoFLOXacin/D5W 750 MG/150 ML PIGGYBACK 100 MG IV (18:21)
--- NOTE | 2023-12-10 19:03 | HO.SKINPHOTO ---
Location: Category: gluteal fold
[2023-12-10 19:16] LABS: Reflex Lactate? Lactic Acid Added
[2023-12-10] MEDS: Phenylephrine HCL 20 MG in 0.9 % Sodium Chloride 250 ML 123.8 MG IVCONT (19:24)
[2023-12-10] MEDS: Sodium Bicarbonate 8.4% 150 MEQ in Dextrose 5 % 850 ML 100 MEQ IV (19:25)
[2023-12-10] MEDS: Piperacillin Sodium/Tazobactam 2.25 GM in 0.9 % Sodium Chloride 50 ML IV (20:37)
[2023-12-10 20:52] LABS: Glucose, Whole Blood 102 mg/dL (60-115)
[2023-12-10] MEDS: Phenylephrine HCL 20 MG in 0.9 % Sodium Chloride 250 ML 148.55 MG IVCONT (21:14)
[2023-12-10] MEDS: Norepinephrine Bitartrate/D5W 8 MG/250 ML PLAST..BAG 24.56 MG IV (21:43)
[2023-12-10 22:12] LABS: Hematocrit 30.3 % (37.0-47.0); NRBC Pct Auto 0.1 /100WBC (0.0-0.2); PLT CLUMP 1; Red Cell Distribution Width 16.2 % (11.0-16.0)
[2023-12-10 22:13] LABS: Hemoglobin 9.8 g/dl (12.0-16.0); Mean Corpuscular HGB Conc 32.3 g/dl (31.0-35.0); Mean Corpuscular Hemoglobin 33.6 pg (27.0-33.0); Mean Corpuscular Volume 103.8 fL (80.0-98.0); Mean Platelet Volume 12.1 fL (9.4-12.3); Red Blood Count 2.92 X10*6/uL (4.20-5.50)
[2023-12-10 22:20] LABS: Alanine Aminotransferase 53 U/L (0-31); Albumin Level 3.7 g/dL (3.5-5.0); Alkaline Phosphatase 140 U/L (39-117); Anion Gap 22 (12-20); Aspartate Amino Transferase 77 U/L (5-31); Bilirubin Total 1.5 mg/dL (0.0-1.0); Blood Urea Nitrogen 42 mg/dL (9-16); Calcium 7.6 mg/dL (8.4-10.2); Carbon Dioxide 10 mmol/L (22-29); Chloride 108 mmol/L (96-108); Estimated Glomerular Filt Rate 18; Glucose Random 156 mg/dL (60-115); Potassium 4.4 mmol/L (3.3-5.1); Sodium 136 mmol/L (135-145); Total Protein 5.8 g/dL (6.5-8.0)
--- NOTE | 2023-12-10 22:23 | W.PM.CCHP ---
Procedures Date of Service Date of Service: 12/10/23 Central Line Placement Left IJ: Consent for Procedure: Elective - informed consent obtained (from pt and family at bedside) Time out performed: Yes Patient placed on monitor/pulse ox: Yes MD prep: mask, gown and gloves Central line prep: Chlorhexidine scrub Local anesthesia used: lidocaine 1% Amount of anesthesia used (ml): 5 Ultrasound used for placement: Yes Central line lumen inserted: triple (16 cm) Post procedure: sutured in place, good blood return, all ports aspirated, flushed, capped and sterile dressing applied Post procedure x-ray: tip of catheter in good position and no pneumothorax seen Patient tolerated procedure: well and no complications Complications: none
[2023-12-10 22:37] LABS: Platelet Count 50 X10*3/uL (160-400)
[2023-12-10 22:40] LABS: Band Neutrophils Percent 16 % (3-5); Burr Cells 2+ (3-5) /OIF; Lymphocytes Absolute Manual 2.8 X10*3/uL (1.2-4.9); Lymphocytes Percent Manual 9 % (20-40); Neutrophils Absolute Manual 28.2 X10*3/uL (2.0-8.3); Neutrophils Percent Manual 75 % (45-73); Platelet Estimate DECREASED (NORMAL); Platelet Morphology Comment NORMAL; RBC Morphology NOTED
[2023-12-10] MEDS: Calcium Gluconate/NaCl,Iso-Osm 2 GM/100 ML PLAST..BAG IV (23:29)
[2023-12-10 23:30] LABS: VBG Base Excess -11.9 mmol/L; VBG HCO3 12 mmol/L (22-26); VBG pCO2 21 mmHg; VBG pH 7.34 (7.32-7.43); VBG pO2 50 mmHg
[2023-12-10 23:34] LABS: Venous Blood Gas Refer to POC result
[2023-12-10] MEDS: Metoprolol Tartrate 5 MG/5 ML VIAL IVPUSH (23:43)
[2023-12-10] MEDS: Sodium Bicarbonate 8.4% 50 MEQ/50 ML VIAL 100 MEQ IVPUSH (23:54)
[2023-12-10] MEDS: Lactated Ringers 500 ML 999 ML IV (23:54)
[2023-12-11] VITALS (49 sets, daily range): BP systolic 74–169; BP diastolic 40–109; PULSE 82–125; RESP 20–36; TEMP 36.7–37.5; O2SAT 90–100; BMI 27.1
[2023-12-11] MEDS: Metoprolol Tartrate 5 MG/5 ML VIAL IVPUSH (00:17)
[2023-12-11] MEDS: Albumin Human 25 % 100 ML IV ×2 (00:20→01:33)
[2023-12-11 00:38] LABS: Beta-Hydroxybutyrate 0.15 mmol/L (0.02-0.27)
[2023-12-11] MEDS: ondansetron HCL 4 MG/2 ML VIAL IVPUSH ×2 (01:06→20:53)
[2023-12-11 01:24] LABS: Reflex Lactate? Lactic Acid Added
[2023-12-11] MEDS: Piperacillin Sodium/Tazobactam 2.25 GM in 0.9 % Sodium Chloride 50 ML IV ×3 (01:35→18:24)
[2023-12-11] MEDS: Norepinephrine Bitartrate/D5W 8 MG/250 ML PLAST..BAG 61.41 MG IV (01:39)
[2023-12-11 03:06] LABS: ~Lactic Acid-LAB USE ONLY 12.5 mmol/L (0.5-2.0)
[2023-12-11] MEDS: Vasopressin 20 UNIT/100 ML INFUS..BTL 12 UNIT IVCONT ×3 (03:22→17:14)
[2023-12-11] MEDS: Furosemide 20 MG/2 ML VIAL IVPUSH (03:24)
[2023-12-11] MEDS: Sodium Bicarbonate 8.4% 50 MEQ/50 ML VIAL 100 MEQ IVPUSH ×3 (03:53→08:35)
[2023-12-11 04:56] LABS: Reflex Lactate? 2 Y
[2023-12-11 05:24] LABS: VBG Base Excess -11.3 mmol/L; VBG HCO3 11 mmol/L (22-26); VBG pCO2 20 mmHg; VBG pH 7.37 (7.32-7.43); VBG pO2 36 mmHg
[2023-12-11] MEDS: Norepinephrine Bitartrate/D5W 8 MG/250 ML PLAST..BAG 46.67 MG IV (05:32)
[2023-12-11 05:33] LABS: Venous Blood Gas Refer to POC result
[2023-12-11 05:42] LABS: Hematocrit 29.9 % (37.0-47.0); Hemoglobin 9.8 g/dl (12.0-16.0); Mean Corpuscular HGB Conc 32.8 g/dl (31.0-35.0); Mean Corpuscular Hemoglobin 33.2 pg (27.0-33.0); Mean Corpuscular Volume 101.4 fL (80.0-98.0); Mean Platelet Volume 11.5 fL (9.4-12.3); NRBC Pct Auto 0.1 /100WBC (0.0-0.2); Red Blood Count 2.95 X10*6/uL (4.20-5.50); Red Cell Distribution Width 16.5 % (11.0-16.0)
[2023-12-11 05:45] LABS: Platelet Count 66 X10*3/uL (160-400)
[2023-12-11 05:46] LABS: White Blood Count 38.4 X10*3/uL (4.8-10.8)
[2023-12-11] MEDS: Sodium Bicarbonate 8.4% 150 MEQ in Dextrose 5 % 850 ML 100 MEQ IV (05:52)
[2023-12-11 05:57] LABS: Alanine Aminotransferase 83 U/L (0-31); Albumin Level 3.8 g/dL (3.5-5.0); Alkaline Phosphatase 96 U/L (39-117); Anion Gap 33 (12-20); Aspartate Amino Transferase 135 U/L (5-31); Bilirubin Total 1.8 mg/dL (0.0-1.0); Blood Urea Nitrogen 43 mg/dL (9-16); Carbon Dioxide 11 mmol/L (22-29); Chloride 101 mmol/L (96-108); Creatinine Clr Calc Pharmacy 12.9; Estimated Glomerular Filt Rate 16; Glucose Random 115 mg/dL (60-115); Magnesium 1.9 mg/dL (1.6-2.6); Phosphorus 5.2 mg/dL (2.7-4.5); Potassium 4.4 mmol/L (3.3-5.1); Sodium 141 mmol/L (135-145); Total Protein 5.2 g/dL (6.5-8.0)
[2023-12-11 05:58] LABS: ~Lactic Acid-LAB USE ONLY 14.8 mmol/L (0.5-2.0)
[2023-12-11] MEDS: Lidocaine 4 % Patch ADH..PATCH 1 PATCH TRANSDERMA (05:59)
[2023-12-11 06:07] LABS: Band Neutrophils Percent 17 % (3-5); Lymphocytes Absolute Manual 2.7 X10*3/uL (1.2-4.9); Lymphocytes Percent Manual 7 % (20-40); Metamyelocytes Absolute 0.4 X10*3/uL; Metamyelocytes Percent 1 %; Monocytes Absolute Manual 1.5 X10*3/uL (0.1-1.2); Monocytes Percent Manual 4 % (2-11); Neutrophils Absolute Manual 33.8 X10*3/uL (2.0-8.3); Neutrophils Percent Manual 71 % (45-73)
[2023-12-11 06:09] LABS: Acanthocytes 1+ (0-2) /OIF; Large Platelet PRESENT; Macrocytosis 1+ (5-14) /OIF; Platelet Estimate DECREASED (NORMAL); Platelet Morphology Comment NOTED; RBC Morphology NOTED
[2023-12-11 06:10] LABS: Burr Cells 2+ (3-5) /OIF; Toxic Granulation PRESENT; Toxic Vacuolation PRESENT
[2023-12-11 06:35] LABS: CDiff Gene PCR NEGATIVE (Negative)
--- NOTE | 2023-12-11 07:17 | P.CONNP_ITS ---
History of Present Illness Reason for Consult Consult date: 12/11/23 Reason for consult: OLMAN Chief Complaint Chief complaint: Septic shock History of Present Illness Narrative: RTANE called to see PT for Oliguric OLMAN in swtting of septic shock Chart reveiwed and full consult to follow [facility] Past Medical History Medical History Atrial fibrillation with RVR Current use of anticoagulant therapy Chronic anticoagulation Diabetes mellitus HTN (hypertension) Chronic atrial fibrillation Family History Family History Father CVD (cardiovascular disease) Mother CVD (cardiovascular disease) Surgical History Surgical History Status post transcatheter aortic valve replacement Social History Social History Household Members: Spouse Housing: House Do you presently have visiting nurse or other home services: No Patient Tobacco Use Status: Never used Tobacco Smoked in Last 30 Days: No Use of substances other than those prescribed or required for medical reasons: No Currently Displaying Signs/Symptoms of Drug Intoxication Withdrawal: No Have you been hit, kicked, punched, or otherwise hurt by someone within the past year? If so, by whom?: No Do you feel safe in your current relationship?: Yes Is there a partner from a previous relationship who is making you feel unsafe now?: No Hinduism Healthcare Practices: Anabaptism Advance Directives: No Advance Directives Information Provided: No Do you have thoughts of harming others: None Do you have a plan to hurt others: No Plan Recently lost weight without trying: No Nutrition Risks: No Nutritional Risk Patient : No : No service: No Meds Allergies Allergy/AdvReac Type Severity Reaction Status Date / Time fish derived Allergy Severe ANAPHYLAXIS Verified 08/22/23 14:52 TO NON-CRUSTACEAN FISH adhesive tape [ADHESIVE TAPE] Allergy Unknown RASH Verified 08/22/23 14:52 atropine Allergy Unknown UNKNOWN Verified 08/22/23 14:52 ALLERGY TO ATROPINE EYE DROPS Sulfa (Sulfonamide Allergy Unknown UNKNOWN Verified 08/22/23 14:52 Antibiotics) tobramycin Allergy Unknown UNKNOWN Verified 08/22/23 14:52 ALLERGY TO TOBRAMYCIN EYE DROPS brimonidine [Combigan] AdvReac Unknown IRRITATION Verified 08/22/23 14:52 Non-Crusteacean Fish Allergy Unknown UNKNOWN Uncoded 02/22/23 14:01 STEROIDS Allergy Unknown WILL CAUSE Uncoded 02/22/23 14:01 EYE PRESSURE AND BLINDNESS Active Medications: Current Medications Apixaban (Apixaban 5 Mg Tablet) 5 mg PO BID [facility] Last Admin: 12/10/23 21:08 Dose: Not Given Dextrose (Dextrose 50 % 25 Gm/50 Ml Syringe) 25 gm IVPUSH Q15M PRN; Protocol PRN Reason: per Hypoglycemia Standing Ord. Glucose (Glucose Gel 15 Gm Gel..Gram.) 15 gm PO Q15M PRN; Protocol PRN Reason: per Hypoglycemia Standing Ord. Sodium Bicarbonate 150 meq/ (Dextrose) 1,000 mls @ 100 mls/hr IV .Q10H [facility] Last Admin: 12/11/23 05:52 Dose: 100 mls/hr Norepinephrine Bitartrate (Levophed) 8 mg in 250 mls @ 0 mls/hr IV .Q0M [facility]; Protocol Last Titration: 12/11/23 06:18 Dose: 0.35 mcg/kg/min, 42.98 mls/hr Vasopressin (Vasostrict) 20 unit in 100 mls @ 12 mls/hr IVCONT .Q8H20M [facility] Last Admin: 12/11/23 03:22 Dose: 0.04 unit/min, 12 mls/hr Piperacillin Sod/Tazobactam (Sod 2.25 gm/ Sodium Chloride) 50 mls @ 100 mls/hr IV Q8H [facility] Insulin Human Lispro (Insulin Lispro 100 Unit/Ml 3 Ml Vial) 0 unit SUBCUT QIDACHS [facility]; Protocol Last Admin: 12/10/23 21:08 Dose: Not Given Sodium Bicarbonate (Sodium Bicarbonate 8.4% 50 Meq/50 Ml Vial) 100 meq IVPUSH ONCE ONE Stop: 12/11/23 08:01 Home Medications Medication Instructions Recorded Confirmed Last Taken Type simvastatin 80 mg tablet 80 mg PO QA 12/15/20 12/10/23 06/11/23 History glyburide 1.25 mg tablet 1.25 mg PO QA 05/11/21 12/10/23 06/11/23 History enalapril maleate 2.5 mg tablet 2.5 mg PO DAILY 11/16/21 12/10/23 06/11/23 History omeprazole 20 mg capsule,delayed 20 mg PO DAILY 06/11/23 12/10/23 06/11/23 History release vibegron 75 mg tablet (Gemtesa) 75 mg PO DAILY 06/11/23 12/10/23 06/11/23 History furosemide 20 mg tablet 20 mg PO DAILY 08/22/23 12/10/23 Unknown History Prevagen Extra Strength 1 tab PO DAILY 12/10/23 12/10/23 Unknown History cyanocobalamin (vitamin B-12) 1,000 mcg PO DAILY 12/10/23 12/10/23 Unknown History 1,000 mcg tablet vit C 250 mg-vit E 90 mg-zinc 40 1 tab PO BID 12/10/23 12/10/23 Unknown History mg-copper 1 [id number] capsule (PreserVision AREDS-2) vitamin E 268 mg (400 unit) capsule 268 mg PO DAILY 12/10/23 12/10/23 Unknown History Physical Exam Vital Signs: Last Vital Signs Temp 98.6 F 12/11/23 06:00 Pulse 91 12/11/23 06:18 Resp 20 12/11/23 06:00 BP 112/58 L 12/11/23 06:18 Pulse Ox 96 12/11/23 06:00 O2 Del Method Room Air 12/11/23 06:00 BMI result Body Mass Index 27.1 Results Lab Results 12/11/23 05:15 12/11/23 05:15 Lab results: Chemistry 12/10/23 12/10/23 12/11/23 13:56 21:58 05:15 Sodium 136 136 141 Potassium 4.0 4.4 4.4 Carbon Dioxide 14 L 10 L* D 11 L BUN 40 H 42 H 43 H Creatinine 2.51 H 2.53 H 2.75 H Calcium 7.7 L 7.6 L 8.0 L Phosphorus 3.0 5.2 H Hematology 12/10/23 12/10/23 12/10/23 12:52 17:13 21:58 WBC 11.8 H 17.8 H 31.0 H* Hgb 10.6 L 10.9 L 9.8 L Plt Count 60 L D 66 L 50 L 12/11/23 05:15 WBC 38.4 H* Hgb 9.8 L Plt Count 66 L D Urinalysis 12/10/23 13:12 Urine Color Yellow Urine Appearance Turbid Urine pH 6.5 Ur Specific [place] 1.015 Urine Protein 100 (2+) H Urine Glucose (UA) Negative Urine Ketones Negative Urine Blood Large (3+) H Urine Nitrite Negative Ur Leukocyte Esterase Large (3+) H Urine RBC >20 H Urine WBC >50 H Ur Squamous Epith Cells 3-5 Hyaline Casts 0-2 Procedures Date of Service Date of Service: 12/11/23
[2023-12-11 08:21] LABS: Glucose, Whole Blood 67 mg/dL (60-115)
[2023-12-11] MEDS: Dextrose 50 % 25 GM/50 ML SYRINGE IVPUSH (08:26)
[2023-12-11 09:40] LABS: Glucose, Whole Blood 156 mg/dL (60-115)
--- NOTE | 2023-12-11 10:03 | P.PNCC_ITS ---
Subjective Subjective Date of Service: 12/11/23 Interval History: 88-year-old lady with underlying hypertension, diabetes mellitus, AFib on Eliquis, aortic stenosis status post TAVR with alteration of mental status and hypotension since the morning of admission. On ER evaluation patient hypotensive and AFib with RVR with heart rate in 110s, also leukocytosis with left shift, positive UA, elevated alkaline phosphatase, no evidence of hydronephrosis on abdominal imaging, but cholelithiasis with gallbladder wall thickening. Patient with poor response to initial IV fluid resuscitation requiring colloidal and vasopressor support. Started on empiric broad-spectrum antibiotics and admitted to the intensive care unit. Blood/urine cultures growing Gram-negative rods. Overnight with worsening pressor requirements and lactate levels. Critical Care Time (minutes): 60 Physical Exam 2 Vital Signs: Vital Signs: Last Vital Signs Temp 98.2 F 12/11/23 08:00 Pulse 91 12/11/23 09:48 Resp 28 H 12/11/23 09:00 BP 136/70 12/11/23 09:48 Pulse Ox 92 12/11/23 09:00 O2 Del Method Room Air 12/11/23 09:00 BMI result Body Mass Index 27.1 Const: General: no acute distress, alert and awake Eyes: Sclerae: sclerae normal EOM: EOMs intact bilaterally Neck: Neck: Yes no lymphadenopathy, Yes trachea midline and Yes supple Resp: Effort & Inspection: normal respiratory effort and no respiratory distress Auscultation: clear to auscultation bilaterally Cardio: Rate: regular rate Rhythm: abnormal rhythm irregularly irregular Heart sounds: no gallops, no murmurs and no rubs GI: Palpation (GI): Soft to palpation and Other GI palpation findings present ( Nontender) Auscultation: normal bowel sounds Extrem: General: Yes no pedal edema, No clubbing and No cyanosis Objective Data Labs 12/11/23 05:15 12/11/23 05:15 Labs: Laboratory Results - last 24 hr 12/10/23 12/10/23 12/10/23 12:42 12:52 12:53 WBC 11.8 H RBC 3.18 L Hgb 10.6 L Hct 32.4 L MCV 105.6 H MCH 33.3 H MCHC 32.7 RDW 15.8 Plt Count 60 L D MPV 9.9 Immature Gran % (Auto) Cancelled Neut % (Auto) Cancelled Lymph % (Auto) Cancelled [place] % (Auto) Cancelled Eos % (Auto) Cancelled Baso % (Auto) Cancelled Lymph # (Auto) Cancelled [place] # (Auto) Cancelled Eos # (Auto) Cancelled Baso # (Auto) Cancelled Abs Immat Gran (auto) Cancelled Absolute Neuts (auto) Cancelled Absolute Nucleated RBC 0.000 Nucleated RBC % (auto) 0.0 Neutrophils % (Manual) 87 H Band Neutrophils % 9 H Lymphocytes % (Manual) 4 L Monocytes % (Manual) Metamyelocytes % Abs Neuts (Manual) 11.3 H Lymphocytes # (Manual) 0.5 L Monocytes # (Manual) Metamyelocytes # Toxic Granulation Toxic Vacuolation PRESENT Platelet Estimate DECREASED Large Platelets Plt Morphology Comment NORMAL RBC Morphology NOTED Polychromasia Macrocytosis 1+ (5-14) Ovalocytes 1+ (5-14) Welcome Cells 3+ (>5) Acanthocytes (Spur) Smear Path Review Cancelled PT 21.8 H INR 1.8 H VBG pH VBG pCO2 VBG pO2 VBG HCO3 VBG O2 Saturation VBG Base Excess Sodium Potassium Chloride Carbon Dioxide Anion Gap BUN Creatinine Estim Creat Clear Calc Estimated GFR POC Glucose 100 Random Glucose Lactic Acid Lactic Acid F/U @ 2Hr Lactic Acid F/U @ 4Hr Calcium Phosphorus Magnesium Total Bilirubin Direct Bilirubin AST ALT Alkaline Phosphatase Troponin I High Sens B-Natriuretic Peptide Total Protein Albumin Lipase Beta-Hydroxybutyrate Urine Color Urine Appearance Urine pH Ur Specific [place] Urine Protein Urine Glucose (UA) Urine Ketones Urine Blood Urine Nitrite Ur Leukocyte Esterase Urine RBC Urine WBC Ur Squamous Epith Cells Urine Bacteria Hyaline Casts Stool Occult Blood C. difficile Tox B Gene Influenza Type A (PCR) Influenza Type B (PCR) RSV RNA Qual (PCR) SARS-CoV-2 RNA (RT-PCR) Blood Type Antibody Screen Crossmatch 12/10/23 12/10/23 12/10/23 12:55 13:12 13:16 WBC RBC Hgb Hct MCV MCH MCHC RDW Plt Count MPV Immature Gran % (Auto) Neut % (Auto) Lymph % (Auto) [place] % (Auto) Eos % (Auto) Baso % (Auto) Lymph # (Auto) [place] # (Auto) Eos # (Auto) Baso # (Auto) Abs Immat Gran (auto) Absolute Neuts (auto) Absolute Nucleated RBC Nucleated RBC % (auto) Neutrophils % (Manual) Band Neutrophils % Lymphocytes % (Manual) Monocytes % (Manual) Metamyelocytes % Abs Neuts (Manual) Lymphocytes # (Manual) Monocytes # (Manual) Metamyelocytes # Toxic Granulation Toxic Vacuolation Platelet Estimate Large Platelets Plt Morphology Comment RBC Morphology Polychromasia Macrocytosis Ovalocytes [place] Cells Acanthocytes (Spur) Smear Path Review PT INR VBG pH VBG pCO2 VBG pO2 VBG HCO3 VBG O2 Saturation VBG Base Excess Sodium Potassium Chloride Carbon Dioxide Anion Gap BUN Creatinine Estim Creat Clear Calc Estimated GFR POC Glucose Random Glucose Lactic Acid Lactic Acid F/U @ 2Hr Lactic Acid F/U @ 4Hr Calcium Phosphorus Magnesium Total Bilirubin Direct Bilirubin AST ALT Alkaline Phosphatase Troponin I High Sens B-Natriuretic Peptide Total Protein Albumin Lipase Beta-Hydroxybutyrate Urine Color Yellow Urine Appearance Turbid Urine pH 6.5 Ur Specific [place] 1.015 Urine Protein 100 (2+) H Urine Glucose (UA) Negative Urine Ketones Negative Urine Blood Large (3+) H Urine Nitrite Negative Ur Leukocyte Esterase Large (3+) H Urine RBC >20 H Urine WBC >50 H Ur Squamous Epith Cells 3-5 Urine Bacteria 4+ Hyaline Casts 0-2 Stool Occult Blood POSITIVE C. difficile Tox B Gene Influenza Type A (PCR) NEGATIVE Influenza Type B (PCR) NEGATIVE RSV RNA Qual (PCR) NEGATIVE SARS-CoV-2 RNA (RT-PCR) NEGATIVE Blood Type Antibody Screen Crossmatch 12/10/23 12/10/23 12/10/23 13:56 16:35 17:13 WBC 17.8 H RBC 3.30 L Hgb 10.9 L Hct 33.2 L MCV 100.6 H D MCH 33.0 MCHC 32.8 RDW 15.9 Plt Count 66 L MPV 10.3 Immature Gran % (Auto) Cancelled Neut % (Auto) Cancelled Lymph % (Auto) Cancelled [place] % (Auto) Cancelled Eos % (Auto) Cancelled Baso % (Auto) Cancelled Lymph # (Auto) Cancelled [place] # (Auto) Cancelled Eos # (Auto) Cancelled Baso # (Auto) Cancelled Abs Immat Gran (auto) Cancelled Absolute Neuts (auto) Cancelled Absolute Nucleated RBC 0.000 Nucleated RBC % (auto) 0.0 Neutrophils % (Manual) 75 H Band Neutrophils % 15 H Lymphocytes % (Manual) 6 L Monocytes % (Manual) 4 Metamyelocytes % Abs Neuts (Manual) 16.0 H Lymphocytes # (Manual) 1.1 L Monocytes # (Manual) 0.7 Metamyelocytes # Toxic Granulation Toxic Vacuolation Platelet Estimate DECREASED Large Platelets Plt Morphology Comment NORMAL RBC Morphology NOTED Polychromasia 1+ (0-2) Macrocytosis Ovalocytes 1+ (5-14) [place] Cells 3+ (>5) Acanthocytes (Spur) Smear Path Review PT INR VBG pH VBG pCO2 VBG pO2 VBG HCO3 VBG O2 Saturation VBG Base Excess Sodium 136 Potassium 4.0 Chloride 108 Carbon Dioxide 14 L Anion Gap 18 BUN 40 H Creatinine 2.51 H Estim Creat Clear Calc 14.2 Estimated GFR 18 POC Glucose 78 Random Glucose 97 Lactic Acid 9.0 H* 6.0 H* Lactic Acid F/U @ 2Hr Lactic Acid F/U @ 4Hr Calcium 7.7 L Phosphorus Magnesium Total Bilirubin 1.2 H Direct Bilirubin 0.8 H AST 76 H ALT 57 H Alkaline Phosphatase 342 H Troponin I High Sens 52.5 H* 107.5 H* D B-Natriuretic Peptide 822 H Total Protein 4.6 L Albumin 2.3 L Lipase 21 Beta-Hydroxybutyrate Urine Color Urine Appearance Urine pH Ur Specific [place] Urine Protein Urine Glucose (UA) Urine Ketones Urine Blood Urine Nitrite Ur Leukocyte Esterase Urine RBC Urine WBC Ur Squamous Epith Cells Urine Bacteria Hyaline Casts Stool Occult Blood C. difficile Tox B Gene Influenza Type A (PCR) Influenza Type B (PCR) RSV RNA Qual (PCR) SARS-CoV-2 RNA (RT-PCR) Blood Type B Positive Antibody Screen NEGATIVE Crossmatch See Detail 12/10/23 12/10/23 12/10/23 17:48 18:09 20:48 WBC RBC Hgb Hct MCV MCH MCHC RDW Plt Count MPV Immature Gran % (Auto) Neut % (Auto) Lymph % (Auto) [place] % (Auto) Eos % (Auto) Baso % (Auto) Lymph # (Auto) [place] # (Auto) Eos # (Auto) Baso # (Auto) Abs Immat Gran (auto) Absolute Neuts (auto) Absolute Nucleated RBC Nucleated RBC % (auto) Neutrophils % (Manual) Band Neutrophils % Lymphocytes % (Manual) Monocytes % (Manual) Metamyelocytes % Abs Neuts (Manual) Lymphocytes # (Manual) Monocytes # (Manual) Metamyelocytes # Toxic Granulation Toxic Vacuolation Platelet Estimate Large Platelets Plt Morphology Comment RBC Morphology Polychromasia Macrocytosis Ovalocytes Welcome Cells Acanthocytes (Spur) Smear Path Review PT INR VBG pH VBG pCO2 VBG pO2 VBG HCO3 VBG O2 Saturation VBG Base Excess Sodium Potassium Chloride Carbon Dioxide Anion Gap BUN Creatinine Estim Creat Clear Calc Estimated GFR POC Glucose 68 78 102 Random Glucose Lactic Acid Lactic Acid F/U @ 2Hr Lactic Acid F/U @ 4Hr Calcium Phosphorus Magnesium Total Bilirubin Direct Bilirubin AST ALT Alkaline Phosphatase Troponin I High Sens B-Natriuretic Peptide Total Protein Albumin Lipase Beta-Hydroxybutyrate Urine Color Urine Appearance Urine pH Ur Specific [place] Urine Protein Urine Glucose (UA) Urine Ketones Urine Blood Urine Nitrite Ur Leukocyte Esterase Urine RBC Urine WBC Ur Squamous Epith Cells Urine Bacteria Hyaline Casts Stool Occult Blood C. difficile Tox B Gene Influenza Type A (PCR) Influenza Type B (PCR) RSV RNA Qual (PCR) SARS-CoV-2 RNA (RT-PCR) Blood Type Antibody Screen Crossmatch 12/10/23 12/10/23 12/10/23 21:58 23:18 23:22 WBC 31.0 H* RBC 2.92 L Hgb 9.8 L Hct 30.3 L MCV 103.8 H MCH 33.6 H MCHC 32.3 RDW 16.2 H Plt Count 50 L MPV 12.1 Immature Gran % (Auto) Cancelled Neut % (Auto) Cancelled Lymph % (Auto) Cancelled [place] % (Auto) Cancelled Eos % (Auto) Cancelled Baso % (Auto) Cancelled Lymph # (Auto) Cancelled [place] # (Auto) Cancelled Eos # (Auto) Cancelled Baso # (Auto) Cancelled Abs Immat Gran (auto) Cancelled Absolute Neuts (auto) Cancelled Absolute Nucleated RBC 0.020 H Nucleated RBC % (auto) 0.1 Neutrophils % (Manual) 75 H Band Neutrophils % 16 H Lymphocytes % (Manual) 9 L Monocytes % (Manual) Metamyelocytes % Abs Neuts (Manual) 28.2 H Lymphocytes # (Manual) 2.8 Monocytes # (Manual) Metamyelocytes # Toxic Granulation Toxic Vacuolation Platelet Estimate DECREASED Large Platelets Plt Morphology Comment NORMAL RBC Morphology NOTED Polychromasia Macrocytosis Ovalocytes [place] Cells 2+ (3-5) Acanthocytes (Spur) Smear Path Review PT INR VBG pH 7.34 VBG pCO2 21 VBG pO2 50 VBG HCO3 12 L VBG O2 Saturation 84.0 VBG Base Excess -11.9 Sodium 136 Potassium 4.4 Chloride 108 Carbon Dioxide 10 L* D Anion Gap 22 H BUN 42 H Creatinine 2.53 H Estim Creat Clear Calc 14.0 Estimated GFR 18 POC Glucose Random Glucose 156 H Lactic Acid 8.0 H* Lactic Acid F/U @ 2Hr Lactic Acid F/U @ 4Hr Calcium 7.6 L Phosphorus 3.0 Magnesium 2.0 Total Bilirubin 1.5 H Direct Bilirubin AST 77 H ALT 53 H Alkaline Phosphatase 140 H Troponin I High Sens 371.0 H* D B-Natriuretic Peptide Total Protein 5.8 L Albumin 3.7 Lipase Beta-Hydroxybutyrate 0.15 Urine Color Urine Appearance Urine pH Ur Specific [place] Urine Protein Urine Glucose (UA) Urine Ketones Urine Blood Urine Nitrite Ur Leukocyte Esterase Urine RBC Urine WBC Ur Squamous Epith Cells Urine Bacteria Hyaline Casts Stool Occult Blood C. difficile Tox B Gene Influenza Type A (PCR) Influenza Type B (PCR) RSV RNA Qual (PCR) SARS-CoV-2 RNA (RT-PCR) Blood Type Antibody Screen Crossmatch 12/11/23 12/11/23 12/11/23 02:10 05:15 05:17 WBC 38.4 H* RBC 2.95 L Hgb 9.8 L Hct 29.9 L MCV 101.4 H MCH 33.2 H MCHC 32.8 RDW 16.5 H Plt Count 66 L D MPV 11.5 Immature Gran % (Auto) Cancelled Neut % (Auto) Cancelled Lymph % (Auto) Cancelled [place] % (Auto) Cancelled Eos % (Auto) Cancelled Baso % (Auto) Cancelled Lymph # (Auto) Cancelled [place] # (Auto) Cancelled Eos # (Auto) Cancelled Baso # (Auto) Cancelled Abs Immat Gran (auto) Cancelled Absolute Neuts (auto) Cancelled Absolute Nucleated RBC 0.020 H Nucleated RBC % (auto) 0.1 Neutrophils % (Manual) 71 Band Neutrophils % 17 H Lymphocytes % (Manual) 7 L Monocytes % (Manual) 4 Metamyelocytes % 1 Abs Neuts (Manual) 33.8 H Lymphocytes # (Manual) 2.7 Monocytes # (Manual) 1.5 H Metamyelocytes # 0.4 Toxic Granulation PRESENT Toxic Vacuolation PRESENT Platelet Estimate DECREASED Large Platelets PRESENT Plt Morphology Comment NOTED RBC Morphology NOTED Polychromasia Macrocytosis 1+ (5-14) Ovalocytes [place] Cells 2+ (3-5) Acanthocytes (Spur) 1+ (0-2) Smear Path Review PT INR VBG pH 7.37 VBG pCO2 20 VBG pO2 36 VBG HCO3 11 L VBG O2 Saturation 62.0 VBG Base Excess -11.3 Sodium 141 Potassium 4.4 Chloride 101 Carbon Dioxide 11 L Anion Gap 33 H BUN 43 H Creatinine 2.75 H Estim Creat Clear Calc 12.9 Estimated GFR 16 POC Glucose Random Glucose 115 Lactic Acid Lactic Acid F/U @ 2Hr 12.5 H* Lactic Acid F/U @ 4Hr 14.8 H* Calcium 8.0 L Phosphorus 5.2 H Magnesium 1.9 Total Bilirubin 1.8 H Direct Bilirubin AST 135 H ALT 83 H Alkaline Phosphatase 96 Troponin I High Sens B-Natriuretic Peptide Total Protein 5.2 L Albumin 3.8 Lipase Beta-Hydroxybutyrate Urine Color Urine Appearance Urine pH Ur Specific [place] Urine Protein Urine Glucose (UA) Urine Ketones Urine Blood Urine Nitrite Ur Leukocyte Esterase Urine RBC Urine WBC Ur Squamous Epith Cells Urine Bacteria Hyaline Casts Stool Occult Blood C. difficile Tox B Gene Influenza Type A (PCR) Influenza Type B (PCR) RSV RNA Qual (PCR) SARS-CoV-2 RNA (RT-PCR) Blood Type Antibody Screen Crossmatch 12/11/23 12/11/23 12/11/23 05:30 08:18 09:36 WBC RBC Hgb Hct MCV MCH MCHC RDW Plt Count MPV Immature Gran % (Auto) Neut % (Auto) Lymph % (Auto) [place] % (Auto) Eos % (Auto) Baso % (Auto) Lymph # (Auto) [place] # (Auto) Eos # (Auto) Baso # (Auto) Abs Immat Gran (auto) Absolute Neuts (auto) Absolute Nucleated RBC Nucleated RBC % (auto) Neutrophils % (Manual) Band Neutrophils % Lymphocytes % (Manual) Monocytes % (Manual) Metamyelocytes % Abs Neuts (Manual) Lymphocytes # (Manual) Monocytes # (Manual) Metamyelocytes # Toxic Granulation Toxic Vacuolation Platelet Estimate Large Platelets Plt Morphology Comment RBC Morphology Polychromasia Macrocytosis Ovalocytes [place] Cells Acanthocytes (Spur) Smear Path Review PT INR VBG pH VBG pCO2 VBG pO2 VBG HCO3 VBG O2 Saturation VBG Base Excess Sodium Potassium Chloride Carbon Dioxide Anion Gap BUN Creatinine Estim Creat Clear Calc Estimated GFR POC Glucose 67 156 H Random Glucose Lactic Acid Lactic Acid F/U @ 2Hr Lactic Acid F/U @ 4Hr Calcium Phosphorus Magnesium Total Bilirubin Direct Bilirubin AST ALT Alkaline Phosphatase Troponin I High Sens B-Natriuretic Peptide Total Protein Albumin Lipase Beta-Hydroxybutyrate Urine Color Urine Appearance Urine pH Ur Specific [place] Urine Protein Urine Glucose (UA) Urine Ketones Urine Blood Urine Nitrite Ur Leukocyte Esterase Urine RBC Urine WBC Ur Squamous Epith Cells Urine Bacteria Hyaline Casts Stool Occult Blood C. difficile Tox B Gene NEGATIVE Influenza Type A (PCR) Influenza Type B (PCR) RSV RNA Qual (PCR) SARS-CoV-2 RNA (RT-PCR) Blood Type Antibody Screen Crossmatch Microbiology Microbiology Results: Microbiology 12/10/23 Unknown Urine Catheterized - Straight Catheter Urine Culture - Preliminary Gram negative delilah 12/10/23 13:56 Blood - Venous Blood Culture - Preliminary Prelim: GNR Gram Stain only 12/10/23 12:53 Blood - Venous Blood Culture - Preliminary Prelim: GNR Gram Stain only Progress Note: A&P Assessment and plan (1) Septic shock: Status: Acute (2) Gram-negative bacteremia: Status: Acute (3) UTI (urinary tract infection): Status: Acute (4) Diabetes mellitus: Status: Acute (5) Atrial fibrillation with RVR: Status: Acute Plan Assessment: With 8-year-old lady admitted with Gram-negative bacteremia and septic shock with source Plan: Neuro: No acute issues. Cardiac: Septic shock, continue to titrate off pressor support as tolerated. Underlying AFib. Pulmonary: No acute issues. Renal: Acute kidney injury likely secondary to septic shock. Oliguric. Nephrology service care appreciated. Continue to monitor renal indices and urine output. Endo: No acute issues. GI: No acute issues. ID: Gram-negative bacteremia with source. Empirically covered with broad- spectrum antibiotics. Heme/Onc: No acute issues. Psych: No acute issues. Miscellaneous: No acute issues. Prophylaxis: Heparin Diet: Regular Critical care time spent: 60 minutes Quality Stroke Does the patient have a stroke diagnosis?: No VTE Prior VTE?: No VTE Risk Level:: Medical - moderate - high VTE Device Contraindication: Treatment Not Indicated VTE Drug Contraindication: Treatment Not Indicated
[2023-12-11] MEDS: Heparin Sodium,Porcine 5,000 UNIT/ML VIAL 5000 UNIT SUBCUT ×2 (10:09→18:24)
--- NOTE | 2023-12-11 11:10 | CONS_ITS ---
DATE OF SERVICE: 12/11/2023 REASON FOR CONSULTATION: I was asked to see the patient to assist in evaluation and management of the patient's oliguric acute kidney injury in the setting of septic shock with a lactic level of 15. HISTORY OF PRESENT ILLNESS: In summary, the patient is an 88-year-old with a history of hypertension, diabetes, atrial fibrillation and aortic stenosis, status post TAVR, who is not on metformin by the way. She presents to the hospital with hypotension, atrial fibrillation with RVR. Heart rate in the 120s. The patient was in septic shock and poorly responsive to IV fluids and colloid. Pressors were started. She is in the ICU and as mentioned, her lactate level has steadily increased. Information is obtained from the electronic medical records. The patient is unable to provide much of any information. PAST MEDICAL HISTORY: As mentioned, past medical history is notable for atrial fibrillation, on anticoagulation, diabetes, hypertension were all listed. Please note, again her medications on admission do not mention use of metformin. MEDICATIONS: On admission listed including Zocor, glyburide, enalapril, Prilosec, and Lasix. ALLERGIES: SHE HAS MULTIPLE ALLERGIES LISTED IN ELECTRONIC MEDICAL RECORD. FAMILY HISTORY: Mentions cardiovascular disease. SURGICAL HISTORY: There is mention made of a TAVR. PHYSICAL EXAMINATION: VITAL SIGNS: Blood pressure 130/70 on pressors. She only had 130 cc of urine output. HEAD: Atraumatic and normocephalic. NECK: Supple. Mucous membranes moist. LUNGS: Breath sounds are bilaterally decreased at the bases. CARDIAC: Regular rate and rhythm. ABDOMEN: Soft. EXTREMITIES: Without edema. LABORATORY DATA: Hemoglobin 9.8, hematocrit 29.9, white count 38.4, and platelet count 66,000. Sodium 141, potassium 4.4, chloride 101, bicarb 11, anion gap 33, BUN 43, creatinine 2.75. Lactic level 14.8, calcium 8, phosphorus 5.2, total bilirubin 1.8, albumin 3.8. Her lactate level on admission was 9. Her creatinine on admission was 2.5. Previous creatinine back in June last year was 0.88. IMPRESSION: 88-YEAR-OLD DIABETIC, HYPERTENSIVE PATIENT ADMITTED WITH SEPTIC SHOCK AND OLIGURIC ACUTE KIDNEY INJURY. 1. Oliguric acute kidney injury. This is most consistent with multifactorial for acute tubular necrosis from septic shock. At this juncture, the focus is on hemodynamic support to see if renal perfusion will improve her acute kidney injury. There was no evidence of obstruction by ultrasound or CAT scan. Her urinalysis showed blood and white blood cells consistent with a urinary tract infection and she did have gram-negative rods both in her blood and urine consistent with urosepsis. 2. Severe lactic acidosis. The presumption is this is due to septic shock and not ischemic infarcting bowel. ICU team is following her closely. RECOMMENDATION: At this time include continue optimize hemodynamic support. Avoid nephrotoxins. Follow urine output and renal function closely. At this juncture, there is no absolute indication for renal replacement therapy. We will follow the patient with the team and depending on clinical course one may need to consider renal replacement therapy, but hopefully she will turn around with support and have some element of renal recovery. I have discussed the case in detail with the gastroenterology physician and we will follow the patient closely with you. MD RIMA Rachel/MICKI / [phone]
[2023-12-11] MEDS: Norepinephrine Bitartrate/D5W 8 MG/250 ML PLAST..BAG 35.62 MG IV (11:34)
[2023-12-11 12:28] LABS: Glucose, Whole Blood 150 mg/dL (60-115)
[2023-12-11] MEDS: Sodium Bicarbonate 8.4% 150 MEQ in Dextrose 5 % 850 ML 200 MEQ IV ×3 (12:57→23:49)
--- NOTE | 2023-12-11 14:31 | MHC.CM.PN ---
IMM 12/11/23 Patient admitted Septic shock. She is responding well to ABX. She is alert and oriented this morning. Met with patient, her and Dtr for CM assessment. She lives with both of them. Patient was independent with equipment prior to admit. She uses a cane for unsteady gait. She uses a shower bench. A walker and a transport chair are also in the home. A copy of the patients HCP has been requested. Patient and family are open to STR or [facility]. She has been to [facility] in the past for STR. [facility] have provided services in the past, per dtr. DP depends on patient recovery and PT evaluation. Patient will transport to home with family, BLS to STR.
[2023-12-11 16:08] LABS: Glucose, Whole Blood 166 mg/dL (60-115)
[2023-12-11] MEDS: Norepinephrine Bitartrate/D5W 8 MG/250 ML PLAST..BAG 20.88 MG IV (20:08)
[2023-12-11 20:58] LABS: Glucose, Whole Blood 169 mg/dL (60-115)
[2023-12-11] MEDS: Insulin Lispro 100 UNIT/ML 3 ML VIAL SUBCUT (21:09)
[2023-12-11 21:39] LABS: Alanine Aminotransferase 938 U/L (0-31); Albumin Level 3.3 g/dL (3.5-5.0); Alkaline Phosphatase 147 U/L (39-117); Anion Gap 39 (12-20); Aspartate Amino Transferase 2146 U/L (5-31); Bilirubin Total 2.8 mg/dL (0.0-1.0); Blood Urea Nitrogen 45 mg/dL (9-16); Calcium 7.2 mg/dL (8.4-10.2); Carbon Dioxide 18 mmol/L (22-29); Chloride 89 mmol/L (96-108); Creatinine Clr Calc Pharmacy 13.4; Estimated Glomerular Filt Rate 15; Glucose Random 195 mg/dL (60-115); Magnesium 1.9 mg/dL (1.6-2.6); Phosphorus 6.4 mg/dL (2.7-4.5); Potassium 4.4 mmol/L (3.3-5.1); Sodium 142 mmol/L (135-145); Total Protein 4.7 g/dL (6.5-8.0)
[2023-12-12] VITALS (35 sets, daily range): BP systolic 93–163; BP diastolic 34–139; PULSE 90–131; RESP 15–35; TEMP 37.2–37.8; O2SAT 90–100; BMI 31.0
[2023-12-12] MEDS: Vasopressin 20 UNIT/100 ML INFUS..BTL 12 UNIT IVCONT ×4 (00:02→22:46)
[2023-12-12] MEDS: Metoprolol Tartrate 5 MG/5 ML VIAL 2.5 MG IVPUSH ×2 (00:24→03:10)
[2023-12-12] MEDS: Heparin Sodium,Porcine 5,000 UNIT/ML VIAL 5000 UNIT SUBCUT ×3 (01:48→18:40)
[2023-12-12] MEDS: Piperacillin Sodium/Tazobactam 2.25 GM in 0.9 % Sodium Chloride 50 ML IV (01:49)
[2023-12-12] MEDS: Furosemide 40 MG/4 ML VIAL IVPUSH (03:40)
[2023-12-12] MEDS: Furosemide 200 MG in 0.9 % Sodium Chloride 80 ML IVCONT (03:51)
[2023-12-12] MEDS: Albumin Human 25 % 100 ML IV ×2 (03:56→05:00)
[2023-12-12] MEDS: Aspirin 300 MG SUPP.RECT PR (04:05)
[2023-12-12 05:47] LABS: Glucose, Whole Blood 141 mg/dL (60-115)
[2023-12-12 05:47] LABS: VBG Base Excess -4.7 mmol/L; VBG HCO3 19 mmol/L (22-26); VBG pCO2 32 mmHg; VBG pH 7.37 (7.32-7.43); VBG pO2 42 mmHg
[2023-12-12 05:59] LABS: Alanine Aminotransferase 1133 U/L (0-31); Albumin Level 3.5 g/dL (3.5-5.0); Alkaline Phosphatase 162 U/L (39-117); Anion Gap 42 (12-20); Aspartate Amino Transferase 2312 U/L (5-31); Bilirubin Total 2.8 mg/dL (0.0-1.0); Blood Urea Nitrogen 45 mg/dL (9-16); Calcium 7.1 mg/dL (8.4-10.2); Carbon Dioxide 17 mmol/L (22-29); Chloride 85 mmol/L (96-108); Creatinine Clr Calc Pharmacy 12.6; Estimated Glomerular Filt Rate 14; Glucose Random 132 mg/dL (60-115); Magnesium 1.8 mg/dL (1.6-2.6); Potassium 4.2 mmol/L (3.3-5.1); Sodium 140 mmol/L (135-145)
[2023-12-12 06:04] LABS: Hematocrit 27.4 % (37.0-47.0); Hemoglobin 9.1 g/dl (12.0-16.0); Mean Corpuscular HGB Conc 33.2 g/dl (31.0-35.0); Mean Corpuscular Hemoglobin 33.8 pg (27.0-33.0); Mean Corpuscular Volume 101.9 fL (80.0-98.0); Mean Platelet Volume 11.8 fL (9.4-12.3); NRBC Pct Auto 0.1 /100WBC (0.0-0.2); Red Blood Count 2.69 X10*6/uL (4.20-5.50); Red Cell Distribution Width 17.1 % (11.0-16.0); WBC ABN SCTR FOR CBC 1
[2023-12-12 06:05] LABS: Platelet Count 50 X10*3/uL (160-400); White Blood Count 36.4 X10*3/uL (4.8-10.8)
--- NOTE | 2023-12-12 06:08 | PM.CCN ---
Critical Care Event Note Summary Date of Service: 12/12/23 Code activated: No Narrative: This case had a high probability of a clinically significant, sudden, or life threatening deterioration of this patient's condition which required my full and direct attention, intervention and personal management. Critical Care Time (minutes): 45 Comment: Late entry from event at 03:45, nursing reported the patient was a little agitated and perhaps having trouble speaking. Upon evaluating the patient it was clear that the patient was having dysarthria, has full range of motion of upper and lower extremities at request at the major joints, no pronator drift, no facial droop but clearly is having difficulty pronouncing words and acknowledges that she is not able to get her words out.? Upon asking simple and complex questions, the patient is clearly dysarthric. She is hemodynamically stable, patient is known to have underlying atrial fibrillation and was previously on Eliquis which was held as the patient has anemia with a positive stool guaiac but has been receiving heparin for DVT prophylaxis. 348 am patient was taken to head CT. ?I was able to see the images myself and I do not see any obvious hemorrhage, however will await stat reading from [facility].? Patient can not have a CT head and neck angiogram due to renal failure.? In addition I do not believe the patient is a candidate for tPA given positive guaiac, anemia, low platelets and low NIH score of 2-3 as I am questioning she has a le facial droop, but she certantly can not stick her tongue out. In the meantime, the patient was rushed back to the ICU, head of the bed at 30 degree angle with aspiration precautions, will order lipid profile for the morning although the patient is not able to get Lipitor given the she has liver failure. Blood sugar was 141. In addition neuro checks every hour, a carotid ultrasound, formal echo and a neurology consult was ordered, swallow eval to be done by nursing as well as speech therapy in the morning.? Subsequently around 04:00 o'clock in the morning, the patient is showing respiratory effort increase and ongoing low O2 sat in the mid to high 80s when as of yesterday the patient was satting 100% on room air. Overall she sounds crackly, has significant crackles at the bases right more than left which is consistent with a pleural effusions noted on her abdominal CT (former reading pending). Given the respiratory distress and her significant fluid positive status, patient was given 40 mg of Lasix IV and placed on a Lasix drip at 10 milligrams/hour, 2 L of oxygen nasal cannula. 04:05, final reading from [facility] reveals an overall impression as follows; ?Cerebral volume loss and mild chronic microangiopathy.? No acute territorial defect, hemorrhage or midline shift.? Ethmoidal and sphenoid sinus disease. Single dose rectal aspirin 300 mg x 1 was ordered.? Decision further aspirin administration given the patient's anemia, known nonspecific GI bleed will be determined later on. CT abdomen and pelvis ?report IMPRESSION: 1. New bilateral pleural effusions, right greater than left. 2. New small to moderate amount of ascites. 3. Cholelithiasis with possible thickened gallbladder wall. 4. Nonobstructing 2 mm left upper pole renal calculus. 5. Other incidental findings as described above. Clinical update 0600 am pt confused and still having dysarthria, no voiding despite Lasix challenge as I did a bedside echo and checked her IVC meassures 2.84cm with minimal to no collapse during inspiration. Case was discussed in detail with Dr. Becerra. Total critical care time 45 minutes.
[2023-12-12] MEDS: Sodium Bicarbonate 8.4% 150 MEQ in Dextrose 5 % 850 ML 200 MEQ IV (06:12)
[2023-12-12 06:21] LABS: Band Neutrophils Percent 9 % (3-5); Lymphocytes Absolute Manual 3.6 X10*3/uL (1.2-4.9); Lymphocytes Percent Manual 10 % (20-40); Monocytes Absolute Manual 1.5 X10*3/uL (0.1-1.2); Monocytes Percent Manual 4 % (2-11); Neutrophils Absolute Manual 31.3 X10*3/uL (2.0-8.3); Neutrophils Percent Manual 77 % (45-73)
[2023-12-12 06:22] LABS: Acanthocytes 1+ (0-2) /OIF; Burr Cells 1+ (0-2) /OIF; Macrocytosis 1+ (5-14) /OIF; Ovalocytes 1+ (5-14) /OIF; Platelet Estimate DECREASED (NORMAL); Platelet Morphology Comment NORMAL; RBC Morphology NOTED
[2023-12-12 06:23] LABS: Toxic Vacuolation PRESENT
[2023-12-12 06:33] LABS: Venous Blood Gas Refer to POC result
--- NOTE | 2023-12-12 06:38 | PC.NURSE ---
At 0240 RN called to the bedside - tech reporting pt has slurred speech. Upon assessment, pt speech is garbled and incomprehensible with L sided facial droop. Alexis CONROY called to bedside. Stroke protocol initiated at 0245 by Alexis CONROY- pt brought to CT stat. Pt placed on neuro checks Q1h, aspiration precautions in place 0310 - Pt in rapid afib 120-130s - 2.5 mg IVP lopressor ordered and administered 0340 - 40 mg IVP lasix ordered and administered, lasix gtt @ 10 mg/hr ordered and infusing? SpO2 88-90% on RA- placed on 2L NC with improvement, spO2 >95% 0405 - 300 mg WA aspirin ordered and administered 0500 - lasix gtt paused per Alexis CONROY d/t low urine output 0630 - spO2 85-88% on 2L NC, increased to 4L with improvement, spO2>92% - Alexis CONROY aware
--- NOTE | 2023-12-12 07:00 | CA_ITS ---
Transthoracic Echocardiogram Patient (Last, First, Middle): Lilliana Reyes E Gender: Female Date of : 1935 Age: 88 Procedure Date: 12/12/2023 Procedure Type: Transthoracic Echocardiogram Location: ICU Height: 165.1 cm Weight: 84.37 kg BSA: 1.92 m2 Heart Rate: bpm BP: 117 / 96 mmHg Core Inserter: TO Referring MD: Alexis CONROY Plastics Scientist: Quang Carreon MD Symptoms: stroke Study Quality: Technically Difficult/Contrast ECG Rhythm: Atrial Fibrillation Conclusions: - 1. Normal LV ejection fraction 55-60% 2. Biatrial enlargement, right greater than left 3. Moderately enlarged right ventricle with severely reduced RV systolic function 4. Normally function bioprosthetic aortic valve with mild aortic regurgitation and normal mean gradient of 7 mm Hg 5. Upper limits of normal RV systolic pressure with significantly elevated right atrial pressures 6. No gross pericardial effusion Findings Procedure Information Contrast agent, definity, is being given per protocol without apparent complications. Left Ventricle Normal left ventricular size, thickness, and systolic function. The visually estimated ejection fraction is between 55-60%. There is a flattened septum in systole consistent with right ventricular pressure overload. Diastolic function is indeterminate on the basis of available data. Right Ventricle Moderately increased right ventricular cavity size. There is severely decreased right ventricular systolic function. Atria The left atrium is moderately dilated. Interatrial shunt cannot be excluded. The right atrium is severely dilated. Aortic Valve A bioprosthetic aortic valve is present. The prosthetic aortic valve appears to be functioning normally. The aortic valve was not well visualized. The mean gradient is 7 mmHg. There is mild aortic valve regurgitation. Mitral Valve There is mild anterior and posterior mitral leaflet thickening. There is mild mitral annular calcification. There is mild mitral valve regurgitation. There is no mitral valve stenosis. Pulmonic Valve The pulmonic valve was not well visualized. Tricuspid Valve Likely normal tricuspid valve structure and function. There is mild tricuspid valve regurgitation. Significantly elevated right atrial pressure. There is no evidence of pulmonary hypertension. Great Vessels The aorta was not well visualized. The pulmonary artery was not well visualized. Venous The inferior vena cava is moderately dilated and does not collapse with inspiration. Pericardium/Pleural There is no evidence of pericardial effusion. Measurements 2D Linear Measurements IVSd: 0.96 0.6-0.9/0.6-1.0 cm LVIDd: 4.07 3.9-5.3/4.2-5.9 cm LVIDd Index: 2.12 2.4-3.2/2.2-3.1 cm/m2 LVIDs: 2.83 2.0-3.6 cm LVPWd: 0.92 0.7-1.1 cm LA Diam: 3.90 2.7-3.8/3.0-4.0 cm LAIDs Index: 2.03 1.5-2.3 cm/m2 LV Mass: 148.73 67-162/88-224 g LV Mass Index: 77.47 43-95/49-115 g/m2 LVOT Diam: 1.90 3.0+(-)1.3 cm 2D Systolic Function EF 4C: 66.50 >55% EF 2C: 43.10 >55% EF BiP: 56.60 >55% Mitral Valve MV Pk E: 0.82 MV Decel Time: 160.00 E'Lateral: 6.35 E'Medial: 4.28 E/E' Med: 19.30 E/E' Lat: 13.00 PHT: 47.00 MVA PHT: 4.68 Decel Woodruff: 5.22 Aortic Valve AoV Pk Marcio: 2.17 AoV Mn Marcio: 1.14 AoV VTI: 0.28 AoV Pk Grad: 19.00 Aov Mn Grad: 7.00 MANI Cont.VTI: 1.32 AI Pk Marcio: 2.90 AI Woodruff: 1.83 LVOT LVOT Pk Marcio: 0.88 LVOT Mn Marcio: 0.53 LVOT VTI: 0.13 LVOT Pk Grad: 3.00 LVOT Mn Grad: 1.00 LVOT Diam: 1.90 LVOT Area: 2.84 Diastolic Function MV Pk E: 0.82 E'Medial: 4.28 E/E' Med: 19.30 E' Laterial: 6.35 E/E' Lat: 13.00 Right Ventricle TAPSE (mm): 7.68 TVS' Marcio: 5.80 Tricuspid Valve TR Pk Marcio: 2.37 TR Pk Grad: 22.00 RA Press: 15.00 RVSP: 37.00 Updated in Other Vendor System with Status of Final Quang Carreon MD electronically signed on 12/12/2023 12:57:42 PM with status of Final
[2023-12-12 07:12] LABS: Glucose, Whole Blood 115 mg/dL (60-115)
[2023-12-12 09:07] LABS: Cholesterol 27 mg/dL (<200); HDL Cholesterol < 5 mg/dL (>40); LDL Cholesterol Calculated 6 mg/dL (<100); Triglycerides 84 mg/dL (<150)
--- NOTE | 2023-12-12 09:10 | PM.NEUROCN ---
History of Present Illness Data of Consult Service Date: 12/12/23 Primary Care Provider: Unknown Physician HPI Reason for consult: Encephalopathy 88-year-old lady with underlying hypertension, diabetes mellitus, AFib on Eliquis, aortic stenosis status post TAVR, septic shock with renal injury, and change in mental status. No seiure like episode noted. This consultation was requested for question stroke. Review of Systems Review of Systems: Recent change in mental status and difficulty breathing. [facility] Past Medical History Medical History (Updated 12/12/23 @ 09:14 by Fay Arriaga MD) Atrial fibrillation with RVR Current use of anticoagulant therapy Chronic anticoagulation Diabetes mellitus HTN (hypertension) Chronic atrial fibrillation Family History Family History Father CVD (cardiovascular disease) Mother CVD (cardiovascular disease) Surgical History Surgical History Status post transcatheter aortic valve replacement Social History Social History Household Members: Spouse Housing: House Do you presently have visiting nurse or other home services: No Patient Tobacco Use Status: Never used Tobacco Smoked in Last 30 Days: No Use of substances other than those prescribed or required for medical reasons: No Currently Displaying Signs/Symptoms of Drug Intoxication Withdrawal: No Have you been hit, kicked, punched, or otherwise hurt by someone within the past year? If so, by whom?: No Do you feel safe in your current relationship?: Yes Is there a partner from a previous relationship who is making you feel unsafe now?: No [employer] Practices: Restorationism Advance Directives: No Advance Directives Information Provided: No Do you have thoughts of harming others: None Do you have a plan to hurt others: No Plan Recently lost weight without trying: No Nutrition Risks: No Nutritional Risk Patient : No : No service: No Meds Allergies Allergy/AdvReac Type Severity Reaction Status Date / Time fish derived Allergy Severe ANAPHYLAXIS Verified 08/22/23 14:52 TO NON-CRUSTACEAN FISH adhesive tape [ADHESIVE TAPE] Allergy Unknown RASH Verified 08/22/23 14:52 atropine Allergy Unknown UNKNOWN Verified 08/22/23 14:52 ALLERGY TO ATROPINE EYE DROPS Sulfa (Sulfonamide Allergy Unknown UNKNOWN Verified 08/22/23 14:52 Antibiotics) tobramycin Allergy Unknown UNKNOWN Verified 08/22/23 14:52 ALLERGY TO TOBRAMYCIN EYE DROPS brimonidine [Combigan] AdvReac Unknown IRRITATION Verified 08/22/23 14:52 Non-Crusteacean Fish Allergy Unknown UNKNOWN Uncoded 02/22/23 14:01 STEROIDS Allergy Unknown WILL CAUSE Uncoded 02/22/23 14:01 EYE PRESSURE AND BLINDNESS Active Medications: Current Medications Dextrose (Dextrose 50 % 25 Gm/50 Ml Syringe) 25 gm IVPUSH Q15M PRN; Protocol PRN Reason: per Hypoglycemia Standing Ord. Last Admin: 12/11/23 08:26 Dose: 25 gm Glucose (Glucose Gel 15 Gm Gel..Gram.) 15 gm PO Q15M PRN; Protocol PRN Reason: per Hypoglycemia Standing Ord. Heparin Sodium (Porcine) (Heparin Sodium,Porcine 5,000 Unit/Ml Vial) 5,000 unit SUBCUT Q8H [facility] Last Admin: 12/12/23 01:48 Dose: 5,000 unit Norepinephrine Bitartrate (Levophed) 8 mg in 250 mls @ 0 mls/hr IV .Q0M [facility]; Protocol Last Titration: 12/12/23 08:04 Dose: 0.07 mcg/kg/min, 8.6 mls/hr Vasopressin (Vasostrict) 20 unit in 100 mls @ 12 mls/hr IVCONT .Q8H20M [facility] Last Admin: 12/12/23 07:27 Dose: 0.04 unit/min, 12 mls/hr Insulin Human Lispro (Insulin Lispro 100 Unit/Ml 3 Ml Vial) 0 unit SUBCUT QIDACHS [facility]; Protocol Last Admin: 12/12/23 07:39 Dose: Not Given Ondansetron HCl (Ondansetron Hcl 4 Mg/2 Ml Vial) 4 mg IVPUSH Q6H PRN PRN Reason: Nausea Home Medications ?Medication ?Instructions ?Recorded ?Confirmed ?Last Taken ?Type simvastatin 80 mg tablet 80 mg PO QAM 12/15/20 12/10/23 06/11/23 History glyburide 1.25 mg tablet 1.25 mg PO QAM 05/11/21 12/10/23 06/11/23 History enalapril maleate 2.5 mg tablet 2.5 mg PO DAILY 11/16/21 12/10/23 06/11/23 History omeprazole 20 mg capsule,delayed 20 mg PO DAILY 06/11/23 12/10/23 06/11/23 History release vibegron 75 mg tablet (Gemtesa) 75 mg PO DAILY 06/11/23 12/10/23 06/11/23 History furosemide 20 mg tablet 20 mg PO DAILY 08/22/23 12/10/23 Unknown History Prevagen Extra Strength 1 tab PO DAILY 12/10/23 12/10/23 Unknown History cyanocobalamin (vitamin B-12) 1,000 mcg PO DAILY 12/10/23 12/10/23 Unknown History 1,000 mcg tablet vit C 250 mg-vit E 90 mg-zinc 40 1 tab PO BID 12/10/23 12/10/23 Unknown History mg-copper 1 [id number] capsule (PreserVision AREDS-2) vitamin E 268 mg (400 unit) capsule 268 mg PO DAILY 12/10/23 12/10/23 Unknown History Physical Exam Vital Signs: Vital Signs: Last Vital Signs Temp 99.3 F 12/12/23 09:00 Pulse 105 H 12/12/23 09:00 Resp 35 H 12/12/23 09:00 BP 123/78 12/12/23 09:00 Pulse Ox 99 12/12/23 09:00 O2 Del Method Nasal Cannula 12/12/23 09:00 O2 Flow Rate 2 12/12/23 09:00 BMI result Body Mass Index 31.0 Neuro: Other: She is alert and awake looking around somewhat anxious. Spontaneity and fluency of speech are normal. Comprehension is normal. She is following simple commands. She knew that she was in [facility] and where she lived. Face was symmetrical. Visual wilson in right eye were full in left seem to be opaque in blind with ptosis an opacity on cornea. She is moving all 4 extremities with flexor plantars. Speech is normal. Results Labs 12/12/23 05:02 12/12/23 05:01 Labs: Short CBC 12/12/23 Range/Units 05:02 WBC 36.4 H* (4.8-10.8) X10*3/uL Hgb 9.1 L (12.0-16.0) g/dl Hct 27.4 L (37.0-47.0) % Plt Count 50 L (160-400) X10*3/uL BMP 12/11/23 12/12/23 21:04 05:01 Sodium 142 140 Potassium 4.4 4.2 Chloride 89 L 85 L Carbon Dioxide 18 L 17 L BUN 45 H 45 H Creatinine 2.96 H 3.15 H Calcium 7.2 L D 7.1 L Liver Function 12/11/23 12/12/23 Range/Units 21:04 05:01 Total Bilirubin 2.8 H 2.8 H (0.0-1.0) mg/dL AST 2146 H 2312 H (5-31) U/L ALT 938 H 1133 H (0-31) U/L Alkaline Phosphatase 147 H 162 H (39-117) U/L Albumin 3.3 L 3.5 (3.5-5.0) g/dL Head CT revealed moderately severe diffuse cerebral atrophy chronic microvascular ischemic disease and left external capsular area chronic ischemic infarction. Microbiology Microbiology Results: Microbiology 12/10/23 Unknown Urine Catheterized - Straight Catheter Urine Culture - Preliminary Escherichia coli Gram positive cocci 12/10/23 13:56 Blood - Venous Blood Culture - Final Escherichia coli 12/10/23 12:53 Blood - Venous Blood Culture - Final Escherichia coli Assessment and Plan (1) Toxic metabolic encephalopathy: Status: Acute 88 years old woman with metabolic toxic encephalopathy related to infection. Head CT revealed cerebral atrophy and some chronic microvascular ischemic changes were a chronic left sided ischemic infarction. Overall clinical picture is not suggestive of any acute stroke. Procedures Date of Service Date of Service: 12/12/23
--- NOTE | 2023-12-12 09:51 | PM.CCPN ---
Subjective Subjective Date of Service: 12/12/23 Interval History: 88-year-old lady with underlying hypertension, diabetes mellitus, AFib on Eliquis, aortic stenosis status post TAVR with alteration of mental status and hypotension since the morning of admission. On ER evaluation patient hypotensive and AFib with RVR with heart rate in 110s, also leukocytosis with left shift, positive UA, elevated alkaline phosphatase, no evidence of hydronephrosis on abdominal imaging, but cholelithiasis with gallbladder wall thickening. Patient with poor response to initial IV fluid resuscitation requiring colloidal and vasopressor support. Started on empiric broad-spectrum antibiotics and admitted to the intensive care unit. Blood/urine cultures growing ESBL E coli. At about 03:00 with left-sided facial droop and slurring of the speech. CT head with no acute bleed. Not a candidate 14 care. Aspirin administered. Neurology evaluation requested. Critical Care Time (minutes): 60 Physical Exam Vital Signs: Vital Signs: Last Vital Signs Temp 99.3 F 12/12/23 09:00 Pulse 105 H 12/12/23 09:00 Resp 35 H 12/12/23 09:00 BP 123/78 12/12/23 09:00 Pulse Ox 99 12/12/23 09:00 O2 Del Method Nasal Cannula 12/12/23 09:00 O2 Flow Rate 2 12/12/23 09:00 BMI result Body Mass Index 31.0 Const: General: no acute distress, alert and awake Eyes: Sclerae: sclerae normal EOM: EOMs intact bilaterally Neck: Neck: Yes no lymphadenopathy, Yes trachea midline and Yes supple Resp: Effort & Inspection: normal respiratory effort and no respiratory distress Auscultation: clear to auscultation bilaterally Cardio: Rate: tachycardic Rhythm: regular rhythm Heart sounds: no gallops, no murmurs and no rubs GI: Palpation (GI): Soft to palpation and Other GI palpation findings present ( Nontender) Auscultation: normal bowel sounds Extrem: General: Yes no pedal edema, No clubbing and No cyanosis Objective Data Labs 12/12/23 05:02 12/12/23 05:01 Labs: Laboratory Results - last 24 hr 12/11/23 12/11/23 12/11/23 12:24 16:03 20:55 WBC RBC Hgb Hct MCV MCH MCHC RDW Plt Count MPV Immature Gran % (Auto) Neut % (Auto) Lymph % (Auto) [place] % (Auto) Eos % (Auto) Baso % (Auto) Lymph # (Auto) [place] # (Auto) Eos # (Auto) Baso # (Auto) Abs Immat Gran (auto) Absolute Neuts (auto) Absolute Nucleated RBC Nucleated RBC % (auto) Neutrophils % (Manual) Band Neutrophils % Lymphocytes % (Manual) Monocytes % (Manual) Abs Neuts (Manual) Lymphocytes # (Manual) Monocytes # (Manual) Toxic Vacuolation Platelet Estimate Plt Morphology Comment RBC Morphology Macrocytosis Ovalocytes [place] Cells Acanthocytes (Spur) VBG pH VBG pCO2 VBG pO2 VBG HCO3 VBG O2 Saturation VBG Base Excess Sodium Potassium Chloride Carbon Dioxide Anion Gap BUN Creatinine Estim Creat Clear Calc Estimated GFR POC Glucose 150 H 166 H 169 H Random Glucose Calcium Phosphorus Magnesium Total Bilirubin AST ALT Alkaline Phosphatase Total Protein Albumin Triglycerides Cholesterol LDL Cholesterol, Calc HDL Cholesterol 12/11/23 12/12/23 12/12/23 21:04 03:07 05:01 WBC RBC Hgb Hct MCV MCH MCHC RDW Plt Count MPV Immature Gran % (Auto) Neut % (Auto) Lymph % (Auto) [place] % (Auto) Eos % (Auto) Baso % (Auto) Lymph # (Auto) [place] # (Auto) Eos # (Auto) Baso # (Auto) Abs Immat Gran (auto) Absolute Neuts (auto) Absolute Nucleated RBC Nucleated RBC % (auto) Neutrophils % (Manual) Band Neutrophils % Lymphocytes % (Manual) Monocytes % (Manual) Abs Neuts (Manual) Lymphocytes # (Manual) Monocytes # (Manual) Toxic Vacuolation Platelet Estimate Plt Morphology Comment RBC Morphology Macrocytosis Ovalocytes [place] Cells Acanthocytes (Spur) VBG pH VBG pCO2 VBG pO2 VBG HCO3 VBG O2 Saturation VBG Base Excess Sodium 142 140 Potassium 4.4 4.2 Chloride 89 L 85 L Carbon Dioxide 18 L 17 L Anion Gap 39 H 42 H BUN 45 H 45 H Creatinine 2.96 H 3.15 H Estim Creat Clear Calc 13.4 12.6 Estimated GFR 15 14 POC Glucose 141 H Random Glucose 195 H 132 H Calcium 7.2 L D 7.1 L Phosphorus 6.4 H 7.0 H Magnesium 1.9 1.8 Total Bilirubin 2.8 H 2.8 H AST 2146 H 2312 H ALT 938 H 1133 H Alkaline Phosphatase 147 H 162 H Total Protein 4.7 L 5.0 L Albumin 3.3 L 3.5 Triglycerides 84 Cholesterol 27 LDL Cholesterol, Calc 6 HDL Cholesterol < 5 L 12/12/23 12/12/23 12/12/23 05:02 05:09 07:09 WBC 36.4 H* RBC 2.69 L Hgb 9.1 L Hct 27.4 L MCV 101.9 H MCH 33.8 H MCHC 33.2 RDW 17.1 H Plt Count 50 L MPV 11.8 Immature Gran % (Auto) Cancelled Neut % (Auto) Cancelled Lymph % (Auto) Cancelled [place] % (Auto) Cancelled Eos % (Auto) Cancelled Baso % (Auto) Cancelled Lymph # (Auto) Cancelled [place] # (Auto) Cancelled Eos # (Auto) Cancelled Baso # (Auto) Cancelled Abs Immat Gran (auto) Cancelled Absolute Neuts (auto) Cancelled Absolute Nucleated RBC 0.040 H Nucleated RBC % (auto) 0.1 Neutrophils % (Manual) 77 H Band Neutrophils % 9 H Lymphocytes % (Manual) 10 L Monocytes % (Manual) 4 Abs Neuts (Manual) 31.3 H Lymphocytes # (Manual) 3.6 Monocytes # (Manual) 1.5 H Toxic Vacuolation PRESENT Platelet Estimate DECREASED Plt Morphology Comment NORMAL RBC Morphology NOTED Macrocytosis 1+ (5-14) Ovalocytes 1+ (5-14) Carroll Cells 1+ (0-2) Acanthocytes (Spur) 1+ (0-2) VBG pH 7.37 VBG pCO2 32 VBG pO2 42 VBG HCO3 19 L VBG O2 Saturation 67.0 VBG Base Excess -4.7 Sodium Potassium Chloride Carbon Dioxide Anion Gap BUN Creatinine Estim Creat Clear Calc Estimated GFR POC Glucose 115 Random Glucose Calcium Phosphorus Magnesium Total Bilirubin AST ALT Alkaline Phosphatase Total Protein Albumin Triglycerides Cholesterol LDL Cholesterol, Calc HDL Cholesterol Microbiology Microbiology Results: Microbiology 12/10/23 Unknown Urine Catheterized - Straight Catheter Urine Culture - Preliminary Escherichia coli Gram positive cocci 12/10/23 13:56 Blood - Venous Blood Culture - Final Escherichia coli 12/10/23 12:53 Blood - Venous Blood Culture - Final Escherichia coli Progress Note: A&P Assessment and plan (1) Ischemic hepatitis: Status: Acute (2) UTI due to extended-spectrum beta lactamase (ESBL) producing Escherichia coli: Status: Acute (3) E coli bacteremia: Status: Acute (4) Toxic metabolic encephalopathy: Status: Acute (5) Diabetes mellitus: Status: Acute (6) OLMAN (acute kidney injury): Status: Resolved (7) Atrial fibrillation with RVR: Status: Acute Plan Assessment: 88-year-old lady admitted with ESBL E coli bacteremia and septic shock with source Plan: Neuro: Overnight with new left-sided fistula drop on slowing of the speech. CT head with no acute findings. Not a TNK candidate Evaluated by Neurology. Question septic encephalopathy versus acute CVA. Cardiac: Septic shock, continue to titrate off pressor support as tolerated. Underlying AFib. Pulmonary: No acute issues. Renal: Acute kidney injury likely secondary to septic shock. Oliguric. Nephrology service care appreciated. Continue to monitor renal indices and urine output. Endo: No acute issues. GI: Ischemic hepatitis secondary to septic shock. ID: [id number] E coli bacteremia with source. Antibiotics narrowed to Levaquin. Heme/Onc: No acute issues. Psych: No acute issues. Miscellaneous: No acute issues. Prophylaxis: Heparin Diet: Pending swallow evaluation Critical care time spent: 60 minutes Quality Stroke Does the patient have a stroke diagnosis?: No VTE Prior VTE?: No VTE Risk Level:: Medical - moderate - high VTE Device Contraindication: Treatment Not Indicated VTE Drug Contraindication: Treatment Not Indicated
[2023-12-12] MEDS: levoFLOXacin/D5W 500 MG/100 ML PIGGYBACK 100 MG IV (10:59)
[2023-12-12 11:16] LABS: Glucose, Whole Blood 84 mg/dL (60-115)
[2023-12-12] MEDS: ondansetron HCL 4 MG/2 ML VIAL IVPUSH (12:35)
--- NOTE | 2023-12-12 14:22 | MHC.SL.SWA ---
Speech Pathologist Impression: Risk of Aspiration Due to: Lethargy Medically Fragile Neurological Condition Dysphasia Diet Status: Liquid Consistency and Strategies for Safe Swallow: Liquid Intake Recommendation: Argo Thick Liquid Intake Strategies: Small Sips Solid Food Consistency: Dietary Recommendations: Pureed (NDD1) Additional Modifications to Solid Foods: Patient fatigues quickly with eating and is markedly weak, requires one to one feeding. Check for swallow and clearance of food before presenting more puree. Alternate liquids and solids. Liquids may be best managed by tsp, or cup sip with sippy lid. Discontinue feeding if clinical signs of aspiration noted: Drop in 02 saturation, coughing, throat clearing, increased upper airway noise. Oral Medication Intake: Crushed with Puree Please contact the pharmacy regarding appropriate crushable or liquid drug formulations that are available whenever modified delivery is recommended. Compensatory Strategies and Precautions to be Taken for Safe Swallow: Sitting Upright (90 deg) No Straw Liquids from Cup Liquids from Spoon Small Bites and Sips Alternate Liquids/Solids Rate of Ingestion Change Oral Check Supervision While Eating and Drinking for Safe Swallow: Total Assistance (1:1) Foods to Avoid: Mixed consistencies. Swallowing Recommended Treatments: Compens. Strategy Educat. Recommendation for Speech: Inpatient Speech Therapy Comment: Patient is s/p ?tia/cva with evident dysarthria, mild left facial droop, presents with moderate oral pharyngeal dysphagia, with oral phase most impaired. Recommend DOWNGRADE diet to Puree (NDD1) with Argo thick liquids, pills crushed in puree. Patient is very weak and fatigues easily, requires a one to one feeding at this time. Strict aspiration precautions apply, discontinue if patient becomes fatigued or is too lethargic to eat, or evidences coughing/signs of aspiration. Recommend Speech/Language/Cognitive assessment during inpatient stay. MD/RD notified of recommendations by secure text, RN in person. FERRY TERMINAL SUPERVISOR will continue to follow. Frequency/Duration: Date Range for Service Req: Timeline to reassess: Aerial Photogrammetrist Clinican/Clinical Fellow: No Supervisory Statement: I have reviewed and agree with the student/clinical fellow's documentation: N/A Speech Language Pathologist: Kayleen Fraser M.A., CCC-FERRY TERMINAL SUPERVISOR
--- NOTE | 2023-12-12 15:10 | P.PNNP_ITS ---
Subjective Subjective Date of Service: 12/12/23 Interval history: Seen and examined, events noted D/W HYDROELECTRIC PLANT MECHANICAL ENGINEER in detail at bedside Physical Exam 2 Vital Signs: Vital Signs: Last Vital Signs Temp 99.5 F 12/12/23 14:00 Pulse 112 H 12/12/23 14:00 Resp 25 H 12/12/23 14:00 BP 129/63 12/12/23 14:00 Pulse Ox 96 12/12/23 14:00 O2 Del Method Nasal Cannula 12/12/23 14:00 O2 Flow Rate 2 12/12/23 14:00 BMI result Body Mass Index 31.0 Objective Data Labs 12/12/23 05:02 12/12/23 05:01 Labs: Laboratory Results - last 24 hr 12/11/23 12/11/23 12/11/23 16:03 20:55 21:04 WBC RBC Hgb Hct MCV MCH MCHC RDW Plt Count MPV Immature Gran % (Auto) Neut % (Auto) Lymph % (Auto) Sebastian % (Auto) Eos % (Auto) Baso % (Auto) Lymph # (Auto) Sebastian # (Auto) Eos # (Auto) Baso # (Auto) Abs Immat Gran (auto) Absolute Neuts (auto) Absolute Nucleated RBC Nucleated RBC % (auto) Neutrophils % (Manual) Band Neutrophils % Lymphocytes % (Manual) Monocytes % (Manual) Abs Neuts (Manual) Lymphocytes # (Manual) Monocytes # (Manual) Toxic Vacuolation Platelet Estimate Plt Morphology Comment RBC Morphology Macrocytosis Ovalocytes [place] Cells Acanthocytes (Spur) VBG pH VBG pCO2 VBG pO2 VBG HCO3 VBG O2 Saturation VBG Base Excess Sodium 142 Potassium 4.4 Chloride 89 L Carbon Dioxide 18 L Anion Gap 39 H BUN 45 H Creatinine 2.96 H Estim Creat Clear Calc 13.4 Estimated GFR 15 POC Glucose 166 H 169 H Random Glucose 195 H Calcium 7.2 L D Phosphorus 6.4 H Magnesium 1.9 Total Bilirubin 2.8 H AST 2146 H ALT 938 H Alkaline Phosphatase 147 H Total Protein 4.7 L Albumin 3.3 L Triglycerides Cholesterol LDL Cholesterol, Calc HDL Cholesterol 12/12/23 12/12/23 12/12/23 03:07 05:01 05:02 WBC 36.4 H* RBC 2.69 L Hgb 9.1 L Hct 27.4 L MCV 101.9 H MCH 33.8 H MCHC 33.2 RDW 17.1 H Plt Count 50 L MPV 11.8 Immature Gran % (Auto) Cancelled Neut % (Auto) Cancelled Lymph % (Auto) Cancelled [place] % (Auto) Cancelled Eos % (Auto) Cancelled Baso % (Auto) Cancelled Lymph # (Auto) Cancelled [place] # (Auto) Cancelled Eos # (Auto) Cancelled Baso # (Auto) Cancelled Abs Immat Gran (auto) Cancelled Absolute Neuts (auto) Cancelled Absolute Nucleated RBC 0.040 H Nucleated RBC % (auto) 0.1 Neutrophils % (Manual) 77 H Band Neutrophils % 9 H Lymphocytes % (Manual) 10 L Monocytes % (Manual) 4 Abs Neuts (Manual) 31.3 H Lymphocytes # (Manual) 3.6 Monocytes # (Manual) 1.5 H Toxic Vacuolation PRESENT Platelet Estimate DECREASED Plt Morphology Comment NORMAL RBC Morphology NOTED Macrocytosis 1+ (5-14) Ovalocytes 1+ (5-14) [place] Cells 1+ (0-2) Acanthocytes (Spur) 1+ (0-2) VBG pH VBG pCO2 VBG pO2 VBG HCO3 VBG O2 Saturation VBG Base Excess Sodium 140 Potassium 4.2 Chloride 85 L Carbon Dioxide 17 L Anion Gap 42 H BUN 45 H Creatinine 3.15 H Estim Creat Clear Calc 12.6 Estimated GFR 14 POC Glucose 141 H Random Glucose 132 H Calcium 7.1 L Phosphorus 7.0 H Magnesium 1.8 Total Bilirubin 2.8 H AST 2312 H ALT 1133 H Alkaline Phosphatase 162 H Total Protein 5.0 L Albumin 3.5 Triglycerides 84 Cholesterol 27 LDL Cholesterol, Calc 6 HDL Cholesterol < 5 L 12/12/23 12/12/23 12/12/23 05:09 07:09 11:11 WBC RBC Hgb Hct MCV MCH MCHC RDW Plt Count MPV Immature Gran % (Auto) Neut % (Auto) Lymph % (Auto) Sebastian % (Auto) Eos % (Auto) Baso % (Auto) Lymph # (Auto) Sebastian # (Auto) Eos # (Auto) Baso # (Auto) Abs Immat Gran (auto) Absolute Neuts (auto) Absolute Nucleated RBC Nucleated RBC % (auto) Neutrophils % (Manual) Band Neutrophils % Lymphocytes % (Manual) Monocytes % (Manual) Abs Neuts (Manual) Lymphocytes # (Manual) Monocytes # (Manual) Toxic Vacuolation Platelet Estimate Plt Morphology Comment RBC Morphology Macrocytosis Ovalocytes [place] Cells Acanthocytes (Spur) VBG pH 7.37 VBG pCO2 32 VBG pO2 42 VBG HCO3 19 L VBG O2 Saturation 67.0 VBG Base Excess -4.7 Sodium Potassium Chloride Carbon Dioxide Anion Gap BUN Creatinine Estim Creat Clear Calc Estimated GFR POC Glucose 115 84 Random Glucose Calcium Phosphorus Magnesium Total Bilirubin AST ALT Alkaline Phosphatase Total Protein Albumin Triglycerides Cholesterol LDL Cholesterol, Calc HDL Cholesterol Microbiology Microbiology Results: Microbiology 12/10/23 Unknown Urine Catheterized - Straight Catheter Urine Culture - Preliminary Escherichia coli Gram positive cocci 12/10/23 13:56 Blood - Venous Blood Culture - Final Escherichia coli 12/10/23 12:53 Blood - Venous Blood Culture - Final Escherichia coli Procedures Date of Service Date of Service: 12/12/23 Assessment & Plan Assessment and plan (1) Septic shock: Status: Acute Plan 1. Olguric OLMAN: c/w SEPSIS assoc ATN, grad incr UOP and decr pressors are good signs No idicatrion for HEALTH DATA ANALYST at this time but will follow clsoley with ICU team Avoid NToxins, track UOP/renal func Time Spent With Patient Time: Total time managing care of this patient today ____ minutes. Progress Note: Quality Stroke Does the patient have a stroke diagnosis?: No
[2023-12-12 16:09] LABS: Glucose, Whole Blood 121 mg/dL (60-115)
[2023-12-12] MEDS: Norepinephrine Bitartrate/D5W 8 MG/250 ML PLAST..BAG 8.6 MG IV (19:29)
--- NOTE | 2023-12-12 19:52 | W.MHC.ACPN ---
Advanced Care Planning Note Advanced Care Planning Note Discussed with: family member(s) (daughter HCP and ) Time spent (in minutes): 20 Narrative: I had a lengthy conversation with the patient's daughter who is the healthcare proxy (Mrs Yves Copeland), the patient's both of whom are at bedside and had questions in regards to the patient's health. They were updated on the current clinical scenario, overnight events, workup and current clinical state. I have answered all questions they had in regards to her clinical scenario and affecting illnesses. We did discuss the possibility of resuscitation and intubation given the overnight events, desaturation and no oxygen requirement as well as the ongoing fluid administration which is necessary with the lack of urine output. They were both very clear that the patient had always told him she does not want to be resuscitated or intubated, they state they have a form on the door of the refrigerator signed by the patient and that they would want this was suspected. We did discuss goals of care in detail and they want everything medically possible done including minimal short term hemodialysis if necessary; TPN, positive pressure but certainly again no resuscitation or intubation. The patient's nurse was in the room during the conversation and serve as a witness for the changes on her code status from full code to DNR DNI. Case discussed with Dr. Becerra Total time spent 20 minutes Problems Discussed (1) Septic shock:
--- NOTE | 2023-12-12 20:26 | HO.HCP ---
Health Care Proxy Invocation Health Care Proxy Declaration: Alexis Bunn PAC , on the date cited below, have determined that, Mrs Lilliana Reyes, lacks the capacity to make or communicate, informed health care decision. This determination is made in accordance with accepted standards of medical judgment and pursuant to [place] 201[place], the [place] Health Care Proxy Law. The cause, nature, extent and probable duration of the patient's inapacity are described below: Cause: Toxic Encephalopathy Nature: Septic Shock Extent: Intermittent moderate Probable Duration of Patient's Incapacity: Indeterminate Health Care Proxy Directions: A lengthy discussion took place with the patient's daughter HCP Mrs. Yves Copeland; as described in detailed Advanced Care Planning note her note. The patient had previously discussed her wished with her and her , signed a DNR DNI form at home and they will bring this in the morning, they kindly asked that this would be respected. At this point code status will be changed.
[2023-12-12 20:36] LABS: Glucose, Whole Blood 42 mg/dL (60-115)
[2023-12-12] MEDS: Dextrose 50 % 25 GM/50 ML SYRINGE IVPUSH (20:36)
[2023-12-12 20:41] LABS: Glucose, Whole Blood 92 mg/dL (60-115)
[2023-12-12 20:43] LABS: Glucose, Whole Blood 61 mg/dL (60-115)
[2023-12-12 21:25] LABS: Glucose, Whole Blood 151 mg/dL (60-115)
[2023-12-12 23:00] LABS: Glucose, Whole Blood 119 mg/dL (60-115)
[2023-12-13] VITALS (27 sets, daily range): BP systolic 94–159; BP diastolic 30–94; PULSE 98–136; RESP 28–38; TEMP 35.1–38; O2SAT 89–99; BMI 30.1
--- NOTE | 2023-12-13 00:13 | PC.NURSE ---
CARE ASSUMED 7PM...PATIENT'S AND DAUGHTER AT BEDSIDE....PATIENT REMAINS CONVERSANT BUT CONFUSED...SPEECH SOMEWHAT SLURRED AND LEFT FACIAL DROOP PRESENT...DIANE....ICU PA AT BEDSIDE...REVIEWING/DISCUSSING PLAN OF CARE... AND DAUGHTER STATED PATIENT IS DNR/DNI STATUS...PREVIOUSLY DISCUSSED WITH PATIENT PRIOR TO ADMISSION...CURRENT PLAN OF CARE ACCEPTABLE BUT STATED NO CPR/DEFIBRILATION/NO INTUBATION...FAMILY TO BRING MOLST FORM PREVIOUSLY SIGNED HERE IN AM...CODE STATUS CHANGED TO DNR/DNI PER FAMILY REQUEST
--- NOTE | 2023-12-13 00:18 | PC.NURSE ---
Addendum entered by Ray Do RN 12/13/23 05:40: [id number] LAB DRAW VIA TLC: GLUCOSE= 65 [id number] POC GLUCOSE VIA TLC =72 Addendum entered by Ray Do RN 12/13/23 03:29: 0325: POC GLUCOSE VIA TLC= 80 Original Note: 8:30PM...POC GLUCOSE RIGHT HAND= 42 POC LEFT HAND= 91 POC VIA TLC= 61 D50% 1 AMP GIVEN PER ICU PA....FOLLOW POC VIA T:22 VOA=178 22:57 CSE=979 SERIAL NEURO CHECKS UNCHANGED...DENIES DISCOMFORT...MULTIPLE SMALL QUARTER SIZED MUCOID STOOLS ON BEDPAN...WATTS WITH SCANT OUTPUT PER REPORT
[2023-12-13] MEDS: Heparin Sodium,Porcine 5,000 UNIT/ML VIAL 5000 UNIT SUBCUT ×3 (01:56→18:20)
[2023-12-13 03:28] LABS: Glucose, Whole Blood 80 mg/dL (60-115)
[2023-12-13 04:50] LABS: VBG Base Excess 3.6 mmol/L; VBG HCO3 28 mmol/L (22-26); VBG pCO2 44 mmHg; VBG pH 7.41 (7.32-7.43); VBG pO2 36 mmHg
[2023-12-13 05:12] LABS: Venous Blood Gas Refer to POC result
[2023-12-13 05:19] LABS: Alanine Aminotransferase 1236 U/L (0-31); Albumin Level 3.5 g/dL (3.5-5.0); Alkaline Phosphatase 199 U/L (39-117); Anion Gap 40 (12-20); Aspartate Amino Transferase 1792 U/L (5-31); Bilirubin Total 4.1 mg/dL (0.0-1.0); Blood Urea Nitrogen 56 mg/dL (9-16); Calcium 6.8 mg/dL (8.4-10.2); Carbon Dioxide 24 mmol/L (22-29); Chloride 82 mmol/L (96-108); Creatinine Clr Calc Pharmacy 9.9; Estimated Glomerular Filt Rate 10; Glucose Random 65 mg/dL (60-115); Phosphorus 7.9 mg/dL (2.7-4.5); Potassium 4.8 mmol/L (3.3-5.1); Sodium 141 mmol/L (135-145); Total Protein 4.9 g/dL (6.5-8.0)
[2023-12-13] MEDS: Vasopressin 20 UNIT/100 ML INFUS..BTL 12 UNIT IVCONT ×3 (05:44→22:08)
[2023-12-13 05:46] LABS: Hematocrit 26.1 % (37.0-47.0); Hemoglobin 8.5 g/dl (12.0-16.0); Mean Corpuscular HGB Conc 32.6 g/dl (31.0-35.0); Mean Corpuscular Hemoglobin 32.9 pg (27.0-33.0); Mean Corpuscular Volume 101.2 fL (80.0-98.0); NRBC Pct Auto 0.6 /100WBC (0.0-0.2); Red Blood Count 2.58 X10*6/uL (4.20-5.50); Red Cell Distribution Width 17.2 % (11.0-16.0)
[2023-12-13 05:49] LABS: Platelet Count 36 X10*3/uL (160-400); WBC ABN SCTR FOR CBC 1; White Blood Count 27.2 X10*3/uL (4.8-10.8)
[2023-12-13 06:14] LABS: Atypical Lymph Absolute Manual 0.3 x10*3/uL; Atypical Lymphs Percent Manual 1 % (0-6); Band Neutrophils Percent 16 % (3-5); Lymphocytes Absolute Manual 1.1 X10*3/uL (1.2-4.9); Lymphocytes Percent Manual 4 % (20-40); Monocytes Absolute Manual 0.3 X10*3/uL (0.1-1.2); Monocytes Percent Manual 1 % (2-11); Neutrophils Absolute Manual 25.6 X10*3/uL (2.0-8.3); Neutrophils Percent Manual 78 % (45-73)
[2023-12-13 06:15] LABS: Acanthocytes 1+ (0-2) /OIF; Burr Cells 1+ (0-2) /OIF; Dohle Bodies PRESENT; Macrocytosis 1+ (5-14) /OIF; Ovalocytes 1+ (5-14) /OIF; Platelet Estimate DECREASED (NORMAL); Platelet Morphology Comment NORMAL; RBC Morphology NOTED; Smudge Cells PRESENT; Target Cells 1+ (5-14) /OIF; Toxic Vacuolation PRESENT
[2023-12-13 07:33] LABS: Glucose, Whole Blood 72 mg/dL (60-115)
[2023-12-13 07:33] LABS: Glucose, Whole Blood 32 mg/dL (60-115)
[2023-12-13 07:33] LABS: Glucose, Whole Blood 62 mg/dL (60-115)
[2023-12-13] MEDS: Dextrose 50 % 25 GM/50 ML SYRINGE IVPUSH (07:37)
[2023-12-13 07:59] LABS: Glucose, Whole Blood 187 mg/dL (60-115)
--- NOTE | 2023-12-13 09:58 | P.PNCC_ITS ---
Subjective Subjective Date of Service: 12/13/23 Interval History: 88-year-old lady with underlying hypertension, diabetes mellitus, AFib on Eliquis, aortic stenosis status post TAVR with alteration of mental status and hypotension since the morning of admission. On ER evaluation patient hypotensive and AFib with RVR with heart rate in 110s, also leukocytosis with left shift, positive UA, elevated alkaline phosphatase, no evidence of hydronephrosis on abdominal imaging, but cholelithiasis with gallbladder wall thickening. Patient with poor response to initial IV fluid resuscitation requiring colloidal and vasopressor support. Started on empiric broad-spectrum antibiotics and admitted to the intensive care unit. Blood/urine cultures growing ESBL E coli. No events overnight. Critical Care Time (minutes): 60 Physical Exam 2 Vital Signs: Vital Signs: Last Vital Signs Temp 95.2 F L 12/13/23 09:53 Pulse 113 H 12/13/23 09:53 Resp 36 H 12/13/23 09:53 BP 108/33 L 12/13/23 09:53 Pulse Ox 94 12/13/23 09:53 O2 Del Method Nasal Cannula 12/13/23 09:53 O2 Flow Rate 4 12/13/23 09:53 BMI result Body Mass Index 30.1 Const: General: no acute distress, alert and awake Eyes: Sclerae: sclerae normal EOM: EOMs intact bilaterally Neck: Neck: Yes no lymphadenopathy, Yes trachea midline and Yes supple Resp: Effort & Inspection: normal respiratory effort and no respiratory distress Auscultation: crackles bilateral Cardio: Rate: tachycardic Rhythm: abnormal rhythm irregularly irregular Heart sounds: no gallops, no murmurs and no rubs GI: Palpation (GI): Soft to palpation and Other GI palpation findings present ( Nontender) Auscultation: normal bowel sounds Extrem: General: No clubbing, No cyanosis and Yes edema (1+ bilateral) Objective Data Labs 12/13/23 05:33 12/13/23 04:42 Labs: Laboratory Results - last 24 hr 12/12/23 12/12/23 12/12/23 11:11 16:05 20:32 WBC RBC Hgb Hct MCV MCH MCHC RDW Plt Count MPV Immature Gran % (Auto) Neut % (Auto) Lymph % (Auto) [place] % (Auto) Eos % (Auto) Baso % (Auto) Lymph # (Auto) [place] # (Auto) Eos # (Auto) Baso # (Auto) Abs Immat Gran (auto) Absolute Neuts (auto) Absolute Nucleated RBC Nucleated RBC % (auto) Neutrophils % (Manual) Band Neutrophils % Lymphocytes % (Manual) Atypical Lymphs % (Man) Monocytes % (Manual) Abs Neuts (Manual) Lymphocytes # (Manual) Atyp Lymphs # (Manual) Monocytes # (Manual) Smudge Cells Toxic Vacuolation Dohle Bodies Platelet Estimate Plt Morphology Comment RBC Morphology Macrocytosis Target Cells Ovalocytes [place] Cells Acanthocytes (Spur) VBG pH VBG pCO2 VBG pO2 VBG HCO3 VBG O2 Saturation VBG Base Excess Sodium Potassium Chloride Carbon Dioxide Anion Gap BUN Creatinine Estim Creat Clear Calc Estimated GFR POC Glucose 84 121 H 42 L* Random Glucose Calcium Phosphorus Magnesium Total Bilirubin AST ALT Alkaline Phosphatase Total Protein Albumin 12/12/23 12/12/23 12/12/23 20:37 20:39 21:22 WBC RBC Hgb Hct MCV MCH MCHC RDW Plt Count MPV Immature Gran % (Auto) Neut % (Auto) Lymph % (Auto) [place] % (Auto) Eos % (Auto) Baso % (Auto) Lymph # (Auto) [place] # (Auto) Eos # (Auto) Baso # (Auto) Abs Immat Gran (auto) Absolute Neuts (auto) Absolute Nucleated RBC Nucleated RBC % (auto) Neutrophils % (Manual) Band Neutrophils % Lymphocytes % (Manual) Atypical Lymphs % (Man) Monocytes % (Manual) Abs Neuts (Manual) Lymphocytes # (Manual) Atyp Lymphs # (Manual) Monocytes # (Manual) Smudge Cells Toxic Vacuolation Dohle Bodies Platelet Estimate Plt Morphology Comment RBC Morphology Macrocytosis Target Cells Ovalocytes [place] Cells Acanthocytes (Spur) VBG pH VBG pCO2 VBG pO2 VBG HCO3 VBG O2 Saturation VBG Base Excess Sodium Potassium Chloride Carbon Dioxide Anion Gap BUN Creatinine Estim Creat Clear Calc Estimated GFR POC Glucose 92 61 151 H Random Glucose Calcium Phosphorus Magnesium Total Bilirubin AST ALT Alkaline Phosphatase Total Protein Albumin 12/12/23 12/13/23 12/13/23 22:57 03:25 04:42 WBC RBC Hgb Hct MCV MCH MCHC RDW Plt Count MPV Immature Gran % (Auto) Neut % (Auto) Lymph % (Auto) [place] % (Auto) Eos % (Auto) Baso % (Auto) Lymph # (Auto) [place] # (Auto) Eos # (Auto) Baso # (Auto) Abs Immat Gran (auto) Absolute Neuts (auto) Absolute Nucleated RBC Nucleated RBC % (auto) Neutrophils % (Manual) Band Neutrophils % Lymphocytes % (Manual) Atypical Lymphs % (Man) Monocytes % (Manual) Abs Neuts (Manual) Lymphocytes # (Manual) Atyp Lymphs # (Manual) Monocytes # (Manual) Smudge Cells Toxic Vacuolation Dohle Bodies Platelet Estimate Plt Morphology Comment RBC Morphology Macrocytosis Target Cells Ovalocytes [place] Cells Acanthocytes (Spur) VBG pH VBG pCO2 VBG pO2 VBG HCO3 VBG O2 Saturation VBG Base Excess Sodium 141 Potassium 4.8 Chloride 82 L Carbon Dioxide 24 Anion Gap 40 H BUN 56 H Creatinine 4.25 H* Estim Creat Clear Calc 9.9 Estimated GFR 10 POC Glucose 119 H 80 Random Glucose 65 Calcium 6.8 L Phosphorus 7.9 H Magnesium 2.0 Total Bilirubin 4.1 H AST 1792 H ALT 1236 H Alkaline Phosphatase 199 H Total Protein 4.9 L Albumin 3.5 12/13/23 12/13/23 12/13/23 04:43 05:33 05:34 WBC 27.2 H RBC 2.58 L Hgb 8.5 L Hct 26.1 L MCV 101.2 H MCH 32.9 MCHC 32.6 RDW 17.2 H Plt Count 36 L D MPV 12.0 Immature Gran % (Auto) Cancelled Neut % (Auto) Cancelled Lymph % (Auto) Cancelled [place] % (Auto) Cancelled Eos % (Auto) Cancelled Baso % (Auto) Cancelled Lymph # (Auto) Cancelled [place] # (Auto) Cancelled Eos # (Auto) Cancelled Baso # (Auto) Cancelled Abs Immat Gran (auto) Cancelled Absolute Neuts (auto) Cancelled Absolute Nucleated RBC 0.160 H Nucleated RBC % (auto) 0.6 H Neutrophils % (Manual) 78 H Band Neutrophils % 16 H Lymphocytes % (Manual) 4 L Atypical Lymphs % (Man) 1 Monocytes % (Manual) 1 L Abs Neuts (Manual) 25.6 H Lymphocytes # (Manual) 1.1 L Atyp Lymphs # (Manual) 0.3 Monocytes # (Manual) 0.3 Smudge Cells PRESENT Toxic Vacuolation PRESENT Dohle Bodies PRESENT Platelet Estimate DECREASED Plt Morphology Comment NORMAL RBC Morphology NOTED Macrocytosis 1+ (5-14) Target Cells 1+ (5-14) Ovalocytes 1+ (5-14) [place] Cells 1+ (0-2) Acanthocytes (Spur) 1+ (0-2) VBG pH 7.41 VBG pCO2 44 VBG pO2 36 VBG HCO3 28 H VBG O2 Saturation 49.0 VBG Base Excess 3.6 Sodium Potassium Chloride Carbon Dioxide Anion Gap BUN Creatinine Estim Creat Clear Calc Estimated GFR POC Glucose 72 Random Glucose Calcium Phosphorus Magnesium Total Bilirubin AST ALT Alkaline Phosphatase Total Protein Albumin 12/13/23 12/13/23 12/13/23 07:25 07:28 07:55 WBC RBC Hgb Hct MCV MCH MCHC RDW Plt Count MPV Immature Gran % (Auto) Neut % (Auto) Lymph % (Auto) [place] % (Auto) Eos % (Auto) Baso % (Auto) Lymph # (Auto) [place] # (Auto) Eos # (Auto) Baso # (Auto) Abs Immat Gran (auto) Absolute Neuts (auto) Absolute Nucleated RBC Nucleated RBC % (auto) Neutrophils % (Manual) Band Neutrophils % Lymphocytes % (Manual) Atypical Lymphs % (Man) Monocytes % (Manual) Abs Neuts (Manual) Lymphocytes # (Manual) Atyp Lymphs # (Manual) Monocytes # (Manual) Smudge Cells Toxic Vacuolation Dohle Bodies Platelet Estimate Plt Morphology Comment RBC Morphology Macrocytosis Target Cells Ovalocytes [place] Cells Acanthocytes (Spur) VBG pH VBG pCO2 VBG pO2 VBG HCO3 VBG O2 Saturation VBG Base Excess Sodium Potassium Chloride Carbon Dioxide Anion Gap BUN Creatinine Estim Creat Clear Calc Estimated GFR POC Glucose 32 L* 62 187 H Random Glucose Calcium Phosphorus Magnesium Total Bilirubin AST ALT Alkaline Phosphatase Total Protein Albumin Microbiology Microbiology Results: Microbiology 12/10/23 Unknown Urine Catheterized - Straight Catheter Urine Culture - Preliminary Escherichia coli Gram positive cocci 12/10/23 13:56 Blood - Venous Blood Culture - Final Escherichia coli 12/10/23 12:53 Blood - Venous Blood Culture - Final Escherichia coli Progress Note: A&P Assessment and plan (1) Acute hypoxic respiratory failure: Status: Acute (2) E coli bacteremia: Status: Acute (3) UTI due to extended-spectrum beta lactamase (ESBL) producing Escherichia coli: Status: Acute (4) Ischemic hepatitis: Status: Acute (5) Toxic metabolic encephalopathy: Status: Acute (6) Diabetes mellitus: Status: Acute (7) Atrial fibrillation with RVR: Status: Acute (8) Septic shock: Status: Acute (9) OLMAN (acute kidney injury): Status: Resolved Plan Assessment: 88-year-old lady admitted with ESBL E coli bacteremia and septic shock with source Plan: Neuro: Overnight for 12/28/2023 with new left-sided facial drop on slowing of the speech. CT head with no acute findings. Not a TNK candidate Evaluated by Neurology. ?septic encephalopathy versus acute CVA. Cardiac: Septic shock, continue to titrate off pressor support as tolerated. Underlying AFib. Pulmonary: Acute hypoxic respiratory failure secondary to pulmonary edema from IV fluid resuscitation. Continue to titrate off supplemental oxygen as tolerated. Renal: Acute kidney injury likely secondary to septic shock. Oliguric. Nephrology service care appreciated. Continue to monitor renal indices and urine output. Endo: No acute issues. GI: Ischemic hepatitis secondary to septic shock. ID: [id number] E coli bacteremia with source. Continue Levaquin. Heme/Onc: No acute issues. Psych: No acute issues. Miscellaneous: No acute issues. Prophylaxis: Heparin Diet: Pureed/nectar thick Critical care time spent: 60 minutes Quality Stroke Does the patient have a stroke diagnosis?: No VTE Prior VTE?: No VTE Risk Level:: Medical - moderate - high VTE Device Contraindication: Treatment Not Indicated VTE Drug Contraindication: Treatment Not Indicated
--- NOTE | 2023-12-13 10:28 | P.CDIM_ITS ---
PROVIDER RESPONSE TEXT: To clarify, the appropriate diagnosis supported by the clinical indicators: Acute QUERY TEXT: PHYSICIAN'S DOCUMENTATION REQUEST Date of Query: 12/13/2023 10:11 AM EDT Patient Name: Lilliana Reyes Admit Date: 12/10/2023 Dear Shade Becerra, A review of the medical record indicates additional documentation may be needed. Please review below and update the documentation accordingly. Clinical Indicators: Per Critical Care Progress Note 12/13/23: pulmonary edema from IV fluid resuscitation Clarify which of the following accurately represents the acuity of the Pulmonary edema. Possible options might include: Acute Acute on chronic Compensated Chronic stable condition Remission Other (explain) Clinically unable to determine (explain) Thank you, Teresa Gomes RN Use of terms such as suspected, likely, concern for, or probable (associated with a specific diagnosi s that is being evaluated, monitored, or treated as if it exists) are acceptable and can be coded in the inpatient se tting, when documented at the time of discharge. Please use your independent medical judgment in providing your response. THIS QUERY IS PART OF THE PERMANENT MEDICAL RECORD
[2023-12-13 11:32] LABS: Glucose, Whole Blood 92 mg/dL (60-115)
[2023-12-13 13:08] LABS: Hematocrit 27.6 % (37.0-47.0); Hemoglobin 9.1 g/dl (12.0-16.0); Mean Corpuscular Hemoglobin 33.2 pg (27.0-33.0); Mean Corpuscular Volume 100.7 fL (80.0-98.0); Mean Platelet Volume 12.8 fL (9.4-12.3); NRBC Pct Auto 0.6 /100WBC (0.0-0.2); Red Blood Count 2.74 X10*6/uL (4.20-5.50); Red Cell Distribution Width 17.2 % (11.0-16.0); White Blood Count 28.4 X10*3/uL (4.8-10.8)
--- NOTE | 2023-12-13 13:10 | PM.PNNEP ---
Subjective Subjective Date of Service: 12/13/23 Interval history: uop declined No events overnight. Physical Exam Vital Signs: Vital Signs: Last Vital Signs Temp 99.5 F 12/13/23 12:00 Pulse 124 H 12/13/23 12:00 Resp 36 H 12/13/23 12:00 BP 117/51 L 12/13/23 12:00 Pulse Ox 90 L 12/13/23 12:00 O2 Del Method Nasal Cannula 12/13/23 12:00 O2 Flow Rate 2 12/13/23 12:00 BMI result Body Mass Index 30.1 cvs; s1s2 Rs; cta ABd; soft no signficant edema castro with minimal uop Objective Data Labs 12/14/23 05:15 12/14/23 05:15 Labs: Laboratory Results - last 24 hr 12/12/23 12/12/23 12/12/23 16:05 20:32 20:37 WBC RBC Hgb Hct MCV MCH MCHC RDW Plt Count MPV Immature Gran % (Auto) Neut % (Auto) Lymph % (Auto) [place] % (Auto) Eos % (Auto) Baso % (Auto) Lymph # (Auto) [place] # (Auto) Eos # (Auto) Baso # (Auto) Abs Immat Gran (auto) Absolute Neuts (auto) Absolute Nucleated RBC Nucleated RBC % (auto) Neutrophils % (Manual) Band Neutrophils % Lymphocytes % (Manual) Atypical Lymphs % (Man) Monocytes % (Manual) Abs Neuts (Manual) Lymphocytes # (Manual) Atyp Lymphs # (Manual) Monocytes # (Manual) Smudge Cells Toxic Vacuolation Dohle Bodies Platelet Estimate Plt Morphology Comment RBC Morphology Macrocytosis Target Cells Ovalocytes [place] Cells Acanthocytes (Spur) VBG pH VBG pCO2 VBG pO2 VBG HCO3 VBG O2 Saturation VBG Base Excess Sodium Potassium Chloride Carbon Dioxide Anion Gap BUN Creatinine Estim Creat Clear Calc Estimated GFR POC Glucose 121 H 42 L* 92 Random Glucose Calcium Phosphorus Magnesium Total Bilirubin AST ALT Alkaline Phosphatase Total Protein Albumin 12/12/23 12/12/23 12/12/23 20:39 21:22 22:57 WBC RBC Hgb Hct MCV MCH MCHC RDW Plt Count MPV Immature Gran % (Auto) Neut % (Auto) Lymph % (Auto) [place] % (Auto) Eos % (Auto) Baso % (Auto) Lymph # (Auto) [place] # (Auto) Eos # (Auto) Baso # (Auto) Abs Immat Gran (auto) Absolute Neuts (auto) Absolute Nucleated RBC Nucleated RBC % (auto) Neutrophils % (Manual) Band Neutrophils % Lymphocytes % (Manual) Atypical Lymphs % (Man) Monocytes % (Manual) Abs Neuts (Manual) Lymphocytes # (Manual) Atyp Lymphs # (Manual) Monocytes # (Manual) Smudge Cells Toxic Vacuolation Dohle Bodies Platelet Estimate Plt Morphology Comment RBC Morphology Macrocytosis Target Cells Ovalocytes [place] Cells Acanthocytes (Spur) VBG pH VBG pCO2 VBG pO2 VBG HCO3 VBG O2 Saturation VBG Base Excess Sodium Potassium Chloride Carbon Dioxide Anion Gap BUN Creatinine Estim Creat Clear Calc Estimated GFR POC Glucose 61 151 H 119 H Random Glucose Calcium Phosphorus Magnesium Total Bilirubin AST ALT Alkaline Phosphatase Total Protein Albumin 12/13/23 12/13/23 12/13/23 03:25 04:42 04:43 WBC RBC Hgb Hct MCV MCH MCHC RDW Plt Count MPV Immature Gran % (Auto) Neut % (Auto) Lymph % (Auto) [place] % (Auto) Eos % (Auto) Baso % (Auto) Lymph # (Auto) [place] # (Auto) Eos # (Auto) Baso # (Auto) Abs Immat Gran (auto) Absolute Neuts (auto) Absolute Nucleated RBC Nucleated RBC % (auto) Neutrophils % (Manual) Band Neutrophils % Lymphocytes % (Manual) Atypical Lymphs % (Man) Monocytes % (Manual) Abs Neuts (Manual) Lymphocytes # (Manual) Atyp Lymphs # (Manual) Monocytes # (Manual) Smudge Cells Toxic Vacuolation Dohle Bodies Platelet Estimate Plt Morphology Comment RBC Morphology Macrocytosis Target Cells Ovalocytes [place] Cells Acanthocytes (Spur) VBG pH 7.41 VBG pCO2 44 VBG pO2 36 VBG HCO3 28 H VBG O2 Saturation 49.0 VBG Base Excess 3.6 Sodium 141 Potassium 4.8 Chloride 82 L Carbon Dioxide 24 Anion Gap 40 H BUN 56 H Creatinine 4.25 H* Estim Creat Clear Calc 9.9 Estimated GFR 10 POC Glucose 80 Random Glucose 65 Calcium 6.8 L Phosphorus 7.9 H Magnesium 2.0 Total Bilirubin 4.1 H AST 1792 H ALT 1236 H Alkaline Phosphatase 199 H Total Protein 4.9 L Albumin 3.5 12/13/23 12/13/23 12/13/23 05:33 05:34 07:25 WBC 27.2 H RBC 2.58 L Hgb 8.5 L Hct 26.1 L MCV 101.2 H MCH 32.9 MCHC 32.6 RDW 17.2 H Plt Count 36 L D MPV 12.0 Immature Gran % (Auto) Cancelled Neut % (Auto) Cancelled Lymph % (Auto) Cancelled [place] % (Auto) Cancelled Eos % (Auto) Cancelled Baso % (Auto) Cancelled Lymph # (Auto) Cancelled [place] # (Auto) Cancelled Eos # (Auto) Cancelled Baso # (Auto) Cancelled Abs Immat Gran (auto) Cancelled Absolute Neuts (auto) Cancelled Absolute Nucleated RBC 0.160 H Nucleated RBC % (auto) 0.6 H Neutrophils % (Manual) 78 H Band Neutrophils % 16 H Lymphocytes % (Manual) 4 L Atypical Lymphs % (Man) 1 Monocytes % (Manual) 1 L Abs Neuts (Manual) 25.6 H Lymphocytes # (Manual) 1.1 L Atyp Lymphs # (Manual) 0.3 Monocytes # (Manual) 0.3 Smudge Cells PRESENT Toxic Vacuolation PRESENT Dohle Bodies PRESENT Platelet Estimate DECREASED Plt Morphology Comment NORMAL RBC Morphology NOTED Macrocytosis 1+ (5-14) Target Cells 1+ (5-14) Ovalocytes 1+ (5-14) [place] Cells 1+ (0-2) Acanthocytes (Spur) 1+ (0-2) VBG pH VBG pCO2 VBG pO2 VBG HCO3 VBG O2 Saturation VBG Base Excess Sodium Potassium Chloride Carbon Dioxide Anion Gap BUN Creatinine Estim Creat Clear Calc Estimated GFR POC Glucose 72 32 L* Random Glucose Calcium Phosphorus Magnesium Total Bilirubin AST ALT Alkaline Phosphatase Total Protein Albumin 12/13/23 12/13/23 12/13/23 07:28 07:55 11:28 WBC RBC Hgb Hct MCV MCH MCHC RDW Plt Count MPV Immature Gran % (Auto) Neut % (Auto) Lymph % (Auto) [place] % (Auto) Eos % (Auto) Baso % (Auto) Lymph # (Auto) [place] # (Auto) Eos # (Auto) Baso # (Auto) Abs Immat Gran (auto) Absolute Neuts (auto) Absolute Nucleated RBC Nucleated RBC % (auto) Neutrophils % (Manual) Band Neutrophils % Lymphocytes % (Manual) Atypical Lymphs % (Man) Monocytes % (Manual) Abs Neuts (Manual) Lymphocytes # (Manual) Atyp Lymphs # (Manual) Monocytes # (Manual) Sm[place] Cells Toxic Vacuolation Dohle Bodies Platelet Estimate Plt Morphology Comment RBC Morphology Macrocytosis Target Cells Ovalocytes [place] Cells Acanthocytes (Spur) VBG pH VBG pCO2 VBG pO2 VBG HCO3 VBG O2 Saturation VBG Base Excess Sodium Potassium Chloride Carbon Dioxide Anion Gap BUN Creatinine Estim Creat Clear Calc Estimated GFR POC Glucose 62 187 H 92 Random Glucose Calcium Phosphorus Magnesium Total Bilirubin AST ALT Alkaline Phosphatase Total Protein Albumin Microbiology Microbiology Results: Microbiology 12/10/23 Unknown Urine Catheterized - Straight Catheter Urine Culture - Final Escherichia coli Streptococcus viridans group 12/10/23 13:56 Blood - Venous Blood Culture - Final Escherichia coli 12/10/23 12:53 Blood - Venous Blood Culture - Final Escherichia coli Procedures Date of Service Date of Service: 12/14/23 Assessment & Plan Assessment and plan (1) OLMAN (acute kidney injury): Status: Resolved Plan 88-year-old lady with underlying hypertension, diabetes mellitus, AFib on Eliquis, aortic stenosis status post TAVR with alteration of mental status and hypotension since the morning of admission. On ER evaluation patient hypotensive and AFib with RVR with heart rate in 110s, also leukocytosis with left shift, positive UA, elevated alkaline phosphatase, no evidence of hydronephrosis on abdominal imaging, but cholelithiasis with gallbladder wall thickening. Patient with poor response to initial IV fluid resuscitation requiring colloidal and vasopressor support. Started on empiric broad-spectrum antibiotics and admitted to the intensive care unit. Blood/urine cultures growing ESBL E coli. Olguric OLMAN: c/w [facility] ATN, No indication for FINISHED GARMENT INSPECTOR at this time but will follow closely with ICU team- dw icu attending Avoid NToxins, track UOP/renal func Time Spent With Patient Time: Total time managing care of this patient today ____ minutes. Progress Note: Quality Stroke Does the patient have a stroke diagnosis?: No
[2023-12-13 13:11] LABS: Platelet Count 36 X10*3/uL (160-400)
[2023-12-13 13:27] LABS: Anion Gap 35 (12-20); Blood Urea Nitrogen 66 mg/dL (9-16); Calcium 6.7 mg/dL (8.4-10.2); Carbon Dioxide 26 mmol/L (22-29); Chloride 84 mmol/L (96-108); Creatinine Clr Calc Pharmacy 9.6; Estimated Glomerular Filt Rate 10; Glucose Random 97 mg/dL (60-115); Potassium 4.9 mmol/L (3.3-5.1); Sodium 140 mmol/L (135-145)
[2023-12-13 13:44] LABS: SLIDE REVIEW MANUAL DIFF
[2023-12-13 13:57] LABS: Acanthocytes 1+ (0-2) /OIF; Band Neutrophils Percent 5 % (3-5); Lymphocytes Absolute Manual 1.7 X10*3/uL (1.2-4.9); Lymphocytes Percent Manual 6 % (20-40); Macrocytosis 1+ (5-14) /OIF; Metamyelocytes Absolute 0.3 X10*3/uL; Metamyelocytes Percent 1 %; Monocytes Absolute Manual 0.3 X10*3/uL (0.1-1.2); Monocytes Percent Manual 1 % (2-11); Neutrophils Absolute Manual 26.1 X10*3/uL (2.0-8.3); Neutrophils Percent Manual 87 % (45-73); Nucleated Red Blood Cells 4 /100WBC (0-0); RBC Morphology NOTED
[2023-12-13 13:58] LABS: Platelet Estimate DECREASED (NORMAL); Platelet Morphology Comment NORMAL; Toxic Vacuolation PRESENT
--- NOTE | 2023-12-13 15:03 | MHC.SL.SWA ---
Speech Pathologist Impression: Oropharyngeal dysphagia, risk of aspiration Risk of Aspiration Due to: Lethargy Medically Fragile Neurological Condition Dysphasia Diet Status: DOWNGRADE TO NPO Liquid Consistency and Strategies for Safe Swallow: Liquid Intake Recommendation: NPO Solid Food Consistency: Dietary Recommendations: NPO Additional Modifications to Solid Foods: Patient w/ no response to PO, no initiation or lingual propulsion and absent swallow trigger. 100% of bolus was manually removed by APPLIQUE CUTTER. Per daughter and , patient was fed from pureed tray last night for dinner and seemed to have aspirated. They report patient coughed with feeding and sounded wet. Recommend DOWNGRADE to NPO status at this time. Oral care and presentation of moistened swabs for hygiene/comfort. APPLIQUE CUTTER to re-evaluate when appropriate- Notified MD and RN of patient's call-in schedule over the weekend (9am-11am) should patient be able to participate. APPLIQUE CUTTER will continue to follow. Oral Medication Intake: NPO Please contact the pharmacy regarding appropriate crushable or liquid drug formulations that are available whenever modified delivery is recommended. Supervision While Eating and Drinking for Safe Swallow: PO with APPLIQUE CUTTER Recommendation for Speech: Inpatient Speech Therapy Oyster Planter Clinican/Clinical Fellow: No Supervisory Statement: I have reviewed and agree with the student/clinical fellow's documentation: N/A Speech Language Pathologist: Penny Art M.A., [facility]APPLIQUE CUTTER
[2023-12-13 16:25] LABS: Glucose, Whole Blood 68 mg/dL (60-115)
[2023-12-13] MEDS: Dextrose 10 % 1,000 ML 30 ML IVCONT (16:40)
[2023-12-13 19:43] LABS: Glucose, Whole Blood 149 mg/dL (60-115)
[2023-12-13] MEDS: Albumin Human 25 % 100 ML IV ×2 (20:03→21:12)
[2023-12-13] MEDS: Metoprolol Tartrate 5 MG/5 ML VIAL 2.5 MG IVPUSH (20:51)
[2023-12-14] VITALS (30 sets, daily range): BP systolic 100–150; BP diastolic 39–73; PULSE 98–123; RESP 28–113; TEMP 35.8–38; O2SAT 92–99; BMI 29.9
[2023-12-14] MEDS: Heparin Sodium,Porcine 5,000 UNIT/ML VIAL 5000 UNIT SUBCUT ×3 (01:06→17:26)
[2023-12-14 05:30] LABS: Hematocrit 23.7 % (37.0-47.0); Hemoglobin 7.9 g/dl (12.0-16.0); Mean Corpuscular HGB Conc 33.3 g/dl (31.0-35.0); Mean Corpuscular Hemoglobin 33.3 pg (27.0-33.0); Mean Platelet Volume 12.4 fL (9.4-12.3); NRBC Pct Auto 0.4 /100WBC (0.0-0.2); Red Blood Count 2.37 X10*6/uL (4.20-5.50); Red Cell Distribution Width 16.6 % (11.0-16.0); WBC ABN SCTR FOR CBC 1
[2023-12-14 05:31] LABS: Platelet Count 31 X10*3/uL (160-400); White Blood Count 23.7 X10*3/uL (4.8-10.8)
[2023-12-14 05:34] LABS: VBG Base Excess 15.6 mmol/L; VBG HCO3 40 mmol/L (22-26); VBG pCO2 50 mmHg; VBG pH 7.51 (7.32-7.43); VBG pO2 41 mmHg
[2023-12-14 05:38] LABS: Venous Blood Gas Refer to POC result
[2023-12-14 05:49] LABS: Band Neutrophils Percent 8 % (3-5); Neutrophils Percent Manual 74 % (45-73)
[2023-12-14 05:50] LABS: Large Platelet PRESENT; Lymphocytes Absolute Manual 2.1 X10*3/uL (1.2-4.9); Lymphocytes Percent Manual 9 % (20-40); Macrocytosis 1+ (5-14) /OIF; Monocytes Absolute Manual 2.1 X10*3/uL (0.1-1.2); Monocytes Percent Manual 9 % (2-11); Neutrophils Absolute Manual 19.4 X10*3/uL (2.0-8.3); Ovalocytes 1+ (5-14) /OIF; Platelet Estimate DECREASED (NORMAL); Platelet Morphology Comment NOTED; RBC Morphology NOTED
[2023-12-14 05:51] LABS: Pappenheimer Bodies PRESENT; Toxic Granulation PRESENT; Toxic Vacuolation PRESENT
[2023-12-14 05:53] LABS: Alanine Aminotransferase 826 U/L (0-31); Albumin Level 3.6 g/dL (3.5-5.0); Alkaline Phosphatase 188 U/L (39-117); Anion Gap 30 (12-20); Aspartate Amino Transferase 818 U/L (5-31); Blood Urea Nitrogen 81 mg/dL (9-16); Calcium 6.5 mg/dL (8.4-10.2); Carbon Dioxide 32 mmol/L (22-29); Chloride 82 mmol/L (96-108); Creatinine Clr Calc Pharmacy 7.7; Estimated Glomerular Filt Rate 7; Glucose Random 182 mg/dL (60-115); Phosphorus 7.1 mg/dL (2.7-4.5); Potassium 4.7 mmol/L (3.3-5.1); Sodium 139 mmol/L (135-145)
[2023-12-14 07:35] LABS: Glucose, Whole Blood 220 mg/dL (60-115)
[2023-12-14] MEDS: levoFLOXacin/D5W 500 MG/100 ML PIGGYBACK 100 MG IV (08:53)
--- NOTE | 2023-12-14 09:43 | PM.CCPN ---
Subjective Subjective Date of Service: 12/14/23 Interval History: 88-year-old lady with underlying hypertension, diabetes mellitus, AFib on Eliquis, aortic stenosis status post TAVR with alteration of mental status and hypotension since the morning of admission. On ER evaluation patient hypotensive and AFib with RVR with heart rate in 110s, also leukocytosis with left shift, positive UA, elevated alkaline phosphatase, no evidence of hydronephrosis on abdominal imaging, but cholelithiasis with gallbladder wall thickening. Patient with poor response to initial IV fluid resuscitation requiring colloidal and vasopressor support. Started on empiric broad-spectrum antibiotics and admitted to the intensive care unit. Blood/urine cultures growing ESBL E coli. No events overnight. Critical Care Time (minutes): 60 Physical Exam Vital Signs: Vital Signs: Last Vital Signs Temp 98.8 F 12/14/23 09:00 Pulse 103 H 12/14/23 09:31 Resp 32 H 12/14/23 09:00 BP 132/49 L 12/14/23 09:31 Pulse Ox 92 12/14/23 09:00 O2 Del Method Nasal Cannula 12/14/23 09:00 O2 Flow Rate 2 12/14/23 09:00 BMI result Body Mass Index 29.9 Const: General: no acute distress, confusion and lethargic (Arousable) Orientation/consciousness: confusion and lethargic (Arousable) Eyes: Sclerae: sclerae normal EOM: EOMs intact bilaterally Neck: Neck: Yes no lymphadenopathy, Yes trachea midline and Yes supple Resp: Effort & Inspection: tachypneic Auscultation: crackles (Bilateral) Cardio: Rate: tachycardic Rhythm: abnormal rhythm irregularly irregular Heart sounds: no gallops, no murmurs and no rubs GI: Palpation (GI): Soft to palpation and Other GI palpation findings present ( Nontender) Auscultation: normal bowel sounds Neuro: General: confusion Extrem: General: No clubbing, No cyanosis and Yes edema (1+ bilateral) Objective Data Labs 12/14/23 05:15 12/14/23 05:15 Labs: Laboratory Results - last 24 hr 12/13/23 12/13/23 12/13/23 11:28 12:55 16:22 WBC 28.4 H RBC 2.74 L Hgb 9.1 L Hct 27.6 L MCV 100.7 H MCH 33.2 H MCHC 33.0 RDW 17.2 H Plt Count 36 L MPV 12.8 H Immature Gran % (Auto) Cancelled Neut % (Auto) Cancelled Lymph % (Auto) Cancelled [place] % (Auto) Cancelled Eos % (Auto) Cancelled Baso % (Auto) Cancelled Lymph # (Auto) Cancelled [place] # (Auto) Cancelled Eos # (Auto) Cancelled Baso # (Auto) Cancelled Abs Immat Gran (auto) Cancelled Absolute Neuts (auto) Cancelled Absolute Nucleated RBC 0.170 H Nucleated RBC % (auto) 0.6 H Neutrophils % (Manual) 87 H Band Neutrophils % 5 Lymphocytes % (Manual) 6 L Monocytes % (Manual) 1 L Metamyelocytes % 1 Abs Neuts (Manual) 26.1 H Lymphocytes # (Manual) 1.7 Monocytes # (Manual) 0.3 Metamyelocytes # 0.3 Nucleated RBCs 4 H Toxic Granulation Toxic Vacuolation PRESENT Platelet Estimate DECREASED Large Platelets Plt Morphology Comment NORMAL RBC Morphology NOTED Macrocytosis 1+ (5-14) Pappenheimer Bodies Ovalocytes Acanthocytes (Spur) 1+ (0-2) Smear Tech's Comments MANUAL DIFF VBG pH VBG pCO2 VBG pO2 VBG HCO3 VBG O2 Saturation VBG Base Excess Sodium 140 Potassium 4.9 Chloride 84 L Carbon Dioxide 26 Anion Gap 35 H BUN 66 H Creatinine 4.33 H* Estim Creat Clear Calc 9.6 Estimated GFR 10 POC Glucose 92 68 Random Glucose 97 Calcium 6.7 L Phosphorus Magnesium Total Bilirubin AST ALT Alkaline Phosphatase Total Protein Albumin 12/13/23 12/14/23 12/14/23 19:37 05:15 05:26 WBC 23.7 H RBC 2.37 L Hgb 7.9 L Hct 23.7 L MCV 100.0 H MCH 33.3 H MCHC 33.3 RDW 16.6 H Plt Count 31 L MPV 12.4 H Immature Gran % (Auto) Cancelled Neut % (Auto) Cancelled Lymph % (Auto) Cancelled [place] % (Auto) Cancelled Eos % (Auto) Cancelled Baso % (Auto) Cancelled Lymph # (Auto) Cancelled [place] # (Auto) Cancelled Eos # (Auto) Cancelled Baso # (Auto) Cancelled Abs Immat Gran (auto) Cancelled Absolute Neuts (auto) Cancelled Absolute Nucleated RBC 0.090 H Nucleated RBC % (auto) 0.4 H Neutrophils % (Manual) 74 H Band Neutrophils % 8 H Lymphocytes % (Manual) 9 L Monocytes % (Manual) 9 Metamyelocytes % Abs Neuts (Manual) 19.4 H Lymphocytes # (Manual) 2.1 Monocytes # (Manual) 2.1 H Metamyelocytes # Nucleated RBCs Toxic Granulation PRESENT Toxic Vacuolation PRESENT Platelet Estimate DECREASED Large Platelets PRESENT Plt Morphology Comment NOTED RBC Morphology NOTED Macrocytosis 1+ (5-14) Pappenheimer Bodies PRESENT Ovalocytes 1+ (5-14) Acanthocytes (Spur) Smear Tech's Comments VBG pH 7.51 H VBG pCO2 50 VBG pO2 41 VBG HCO3 40 H VBG O2 Saturation 64.0 VBG Base Excess 15.6 Sodium 139 Potassium 4.7 Chloride 82 L Carbon Dioxide 32 H Anion Gap 30 H BUN 81 H Creatinine 5.45 H* Estim Creat Clear Calc 7.7 Estimated GFR 7 POC Glucose 149 H Random Glucose 182 H Calcium 6.5 L Phosphorus 7.1 H Magnesium 2.0 Total Bilirubin 5.0 H AST 818 H ALT 826 H Alkaline Phosphatase 188 H Total Protein 5.0 L Albumin 3.6 12/14/23 07:31 WBC RBC Hgb Hct MCV MCH MCHC RDW Plt Count MPV Immature Gran % (Auto) Neut % (Auto) Lymph % (Auto) [place] % (Auto) Eos % (Auto) Baso % (Auto) Lymph # (Auto) [place] # (Auto) Eos # (Auto) Baso # (Auto) Abs Immat Gran (auto) Absolute Neuts (auto) Absolute Nucleated RBC Nucleated RBC % (auto) Neutrophils % (Manual) Band Neutrophils % Lymphocytes % (Manual) Monocytes % (Manual) Metamyelocytes % Abs Neuts (Manual) Lymphocytes # (Manual) Monocytes # (Manual) Metamyelocytes # Nucleated RBCs Toxic Granulation Toxic Vacuolation Platelet Estimate Large Platelets Plt Morphology Comment RBC Morphology Macrocytosis Pappenheimer Bodies Ovalocytes Acanthocytes (Spur) Smear Tech's Comments VBG pH VBG pCO2 VBG pO2 VBG HCO3 VBG O2 Saturation VBG Base Excess Sodium Potassium Chloride Carbon Dioxide Anion Gap BUN Creatinine Estim Creat Clear Calc Estimated GFR POC Glucose 220 H Random Glucose Calcium Phosphorus Magnesium Total Bilirubin AST ALT Alkaline Phosphatase Total Protein Albumin Microbiology Microbiology Results: Microbiology 12/10/23 Unknown Urine Catheterized - Straight Catheter Urine Culture - Final Escherichia coli Streptococcus viridans group 12/10/23 13:56 Blood - Venous Blood Culture - Final Escherichia coli 12/10/23 12:53 Blood - Venous Blood Culture - Final Escherichia coli Progress Note: A&P Assessment and plan (1) Acute hypoxic respiratory failure: Status: Acute (2) E coli bacteremia: Status: Acute (3) UTI due to extended-spectrum beta lactamase (ESBL) producing Escherichia coli: Status: Acute (4) Ischemic hepatitis: Status: Acute (5) Toxic metabolic encephalopathy: Status: Acute (6) OLMAN (acute kidney injury): Status: Resolved (7) Diabetes mellitus: Status: Acute (8) Atrial fibrillation with RVR: Status: Acute Plan Assessment: 88-year-old lady admitted with ESBL E coli bacteremia and septic shock with source Plan: Neuro: Overnight for 12/28/2023 with new left-sided facial drop on slowing of the speech. CT head with no acute findings. Not a TNK candidate Evaluated by Neurology. ?septic encephalopathy versus acute CVA. Cardiac: Septic shock, continue to titrate off pressor support as tolerated. Underlying AFib. Pulmonary: Acute hypoxic respiratory failure secondary to pulmonary edema from IV fluid resuscitation. Continue to titrate off supplemental oxygen as tolerated. Renal: Acute kidney injury likely secondary to septic shock. Oliguric. Nephrology service care appreciated. Continue to monitor renal indices and urine output. Endo: No acute issues. GI: Ischemic hepatitis secondary to septic shock, improving. ID: [id number] E coli bacteremia with source. Continue Levaquin. Heme/Onc: No acute issues. Psych: No acute issues. Miscellaneous: No acute issues. Prophylaxis: Heparin Diet: Pureed/nectar thick Critical care time spent: 60 minutes Quality Stroke Does the patient have a stroke diagnosis?: No VTE Prior VTE?: No VTE Risk Level:: Medical - moderate - high VTE Device Contraindication: Treatment Not Indicated VTE Drug Contraindication: Treatment Not Indicated
[2023-12-14 11:46] LABS: Glucose, Whole Blood 206 mg/dL (60-115)
[2023-12-14] MEDS: Vasopressin 20 UNIT/100 ML INFUS..BTL 6 UNIT IVCONT ×2 (12:30→22:11)
[2023-12-14 17:23] LABS: Glucose, Whole Blood 238 mg/dL (60-115)
[2023-12-14] MEDS: Dextrose 10 % 1,000 ML 30 ML IVCONT (17:26)
[2023-12-14] MEDS: Insulin Lispro 100 UNIT/ML 3 ML VIAL SUBCUT ×2 (17:27→21:19)
--- NOTE | 2023-12-14 17:54 | HO.SKINPHOTO ---
Location: left breast Category Location: right breast Category:
[2023-12-14 20:35] LABS: VBG Base Excess 19.5 mmol/L; VBG HCO3 43 mmol/L (22-26); VBG pCO2 49 mmHg; VBG pH 7.55 (7.32-7.43); VBG pO2 61 mmHg
[2023-12-14 20:37] LABS: Venous Blood Gas Refer to POC result
[2023-12-14 20:46] LABS: Alanine Aminotransferase 749 U/L (0-31); Albumin Level 3.4 g/dL (3.5-5.0); Alkaline Phosphatase 219 U/L (39-117); Anion Gap 23 (12-20); Aspartate Amino Transferase 607 U/L (5-31); Bilirubin Total 5.3 mg/dL (0.0-1.0); Blood Urea Nitrogen 93 mg/dL (9-16); Calcium 6.2 mg/dL (8.4-10.2); Carbon Dioxide 36 mmol/L (22-29); Chloride 83 mmol/L (96-108); Estimated Glomerular Filt Rate 7; Glucose Random 239 mg/dL (60-115); Phosphorus 7.1 mg/dL (2.7-4.5); Potassium 4.7 mmol/L (3.3-5.1); Sodium 137 mmol/L (135-145); Total Protein 4.8 g/dL (6.5-8.0)
[2023-12-14 21:10] LABS: Hematocrit 24.3 % (37.0-47.0); Hemoglobin 8.3 g/dl (12.0-16.0); Mean Corpuscular HGB Conc 34.2 g/dl (31.0-35.0); Mean Corpuscular Hemoglobin 32.9 pg (27.0-33.0); Mean Corpuscular Volume 96.4 fL (80.0-98.0); Mean Platelet Volume 12.5 fL (9.4-12.3); NRBC Pct Auto 0.4 /100WBC (0.0-0.2); Red Blood Count 2.52 X10*6/uL (4.20-5.50)
[2023-12-14 21:18] LABS: WBC ABN SCTR FOR CBC 1
[2023-12-14 21:29] LABS: Band Neutrophils Percent 0 % (3-5); Lymphocytes Percent Manual 9 % (20-40); Monocytes Percent Manual 3 % (2-11); Neutrophils Percent Manual 88 % (45-73)
[2023-12-14 21:35] LABS: Dohle Bodies PRESENT; Platelet Estimate DECREASED (NORMAL); RBC Morphology NOTED; Toxic Granulation PRESENT; Toxic Vacuolation PRESENT
[2023-12-14 21:36] LABS: Monocytes Absolute Manual 0.7 X10*3/uL (0.1-1.2); Neutrophils Absolute Manual 19.1 X10*3/uL (2.0-8.3); Platelet Morphology Comment NORM; White Blood Count 21.7 X10*3/uL (4.8-10.8)
[2023-12-14 21:37] LABS: Platelet Count 37 X10*3/uL (160-400)
[2023-12-14] MEDS: Albumin Human 25 % 100 ML IV ×2 (22:09→23:27)
[2023-12-14] MEDS: Nystatin Oral Susp 500,000 UNIT/5 ML ORAL.SUSP 400000 UNIT BUCCAL (23:18)
[2023-12-15] VITALS (24 sets, daily range): BP systolic 91–141; BP diastolic 41–73; PULSE 82–130; RESP 27–34; TEMP 36.2–37.3; O2SAT 93–99; BMI 29.8
[2023-12-15 00:20] LABS: Glucose, Whole Blood 216 mg/dL (60-115)
[2023-12-15 05:23] LABS: VBG Base Excess 24.4 mmol/L; VBG HCO3 47 mmol/L (22-26); VBG pCO2 42 mmHg; VBG pH 7.66 (7.32-7.43); VBG pO2 41 mmHg
[2023-12-15 05:33] LABS: Venous Blood Gas Refer to POC result
[2023-12-15 07:08] LABS: Hematocrit 24.6 % (37.0-47.0); Hemoglobin 8.4 g/dl (12.0-16.0); Mean Corpuscular HGB Conc 34.1 g/dl (31.0-35.0); Mean Corpuscular Hemoglobin 33.1 pg (27.0-33.0); Mean Corpuscular Volume 96.9 fL (80.0-98.0); Mean Platelet Volume 12.6 fL (9.4-12.3); NRBC Pct Auto 0.5 /100WBC (0.0-0.2); Red Blood Count 2.54 X10*6/uL (4.20-5.50); Red Cell Distribution Width 15.6 % (11.0-16.0)
[2023-12-15 07:13] LABS: PLT ABN DIST 1; Platelet Count 37 X10*3/uL (160-400); WBC ABN SCTR FOR CBC 1; White Blood Count 20.9 X10*3/uL (4.8-10.8)
[2023-12-15 07:32] LABS: Band Neutrophils Percent 1 % (3-5); Eosinophils Absolute Manual 0.2 X10*3/uL (0.0-0.4); Eosinophils Percent Manual 1 % (0-4); Lymphocytes Absolute Manual 1.5 X10*3/uL (1.2-4.9); Lymphocytes Percent Manual 7 % (20-40); Metamyelocytes Absolute 0.2 X10*3/uL; Metamyelocytes Percent 1 %; Monocytes Absolute Manual 1.7 X10*3/uL (0.1-1.2); Monocytes Percent Manual 8 % (2-11); Neutrophils Absolute Manual 17.3 X10*3/uL (2.0-8.3); Neutrophils Percent Manual 82 % (45-73)
[2023-12-15 07:33] LABS: Glucose, Whole Blood 110 mg/dL (60-115)
[2023-12-15 07:34] LABS: Ovalocytes 1+ (5-14) /OIF; Platelet Estimate DECREASED (NORMAL); Platelet Morphology Comment NORMAL; RBC Morphology NOTED
[2023-12-15 07:35] LABS: Toxic Granulation PRESENT
[2023-12-15] MEDS: Nystatin Oral Susp 500,000 UNIT/5 ML ORAL.SUSP 400000 UNIT BUCCAL ×4 (08:49→20:50)
[2023-12-15 09:14] LABS: Sodium 140 mmol/L (135-145)
[2023-12-15 09:15] LABS: Anion Gap 24 (12-20); Blood Urea Nitrogen 103 mg/dL (9-16); Carbon Dioxide 32 mmol/L (22-29); Chloride 84 mmol/L (96-108); Creatinine Clr Calc Pharmacy 7.1; Estimated Glomerular Filt Rate 7; Glucose Random 134 mg/dL (60-115); Potassium 4.4 mmol/L (3.3-5.1)
[2023-12-15 09:16] LABS: Alanine Aminotransferase 566 U/L (0-31); Aspartate Amino Transferase 431 U/L (5-31); Bilirubin Total 5.2 mg/dL (0.0-1.0); Magnesium 2.1 mg/dL (1.6-2.6); Phosphorus 6.1 mg/dL (2.7-4.5)
[2023-12-15 09:17] LABS: Albumin Level 4.1 g/dL (3.5-5.0); Alkaline Phosphatase 221 U/L (39-117); Total Protein 5.4 g/dL (6.5-8.0)
--- NOTE | 2023-12-15 09:45 | PM.CCPN ---
Subjective Subjective Date of Service: 12/15/23 Interval History: 88-year-old lady with underlying hypertension, diabetes mellitus, AFib on Eliquis, aortic stenosis status post TAVR with alteration of mental status and hypotension since the morning of admission. On ER evaluation patient hypotensive and AFib with RVR with heart rate in 110s, also leukocytosis with left shift, positive UA, elevated alkaline phosphatase, no evidence of hydronephrosis on abdominal imaging, but cholelithiasis with gallbladder wall thickening. Patient with poor response to initial IV fluid resuscitation requiring colloidal and vasopressor support. Started on empiric broad-spectrum antibiotics and admitted to the intensive care unit. Blood/urine cultures growing ESBL E coli. No events overnight. Titrated off pressor support. Critical Care Time (minutes): 0 Physical Exam Vital Signs: Vital Signs: Last Vital Signs Temp 97.9 F 12/15/23 08:00 Pulse 111 H 12/15/23 09:00 Resp 33 H 12/15/23 09:00 BP 118/71 12/15/23 09:00 Pulse Ox 95 12/15/23 09:00 O2 Del Method Nasal Cannula 12/15/23 09:00 O2 Flow Rate 1 12/15/23 09:00 BMI result Body Mass Index 29.8 Const: General: no acute distress, alert, awake and confusion Orientation/consciousness: confusion Eyes: Sclerae: sclerae normal EOM: EOMs intact bilaterally Neck: Neck: Yes no lymphadenopathy, Yes trachea midline and Yes supple Resp: Effort & Inspection: normal respiratory effort and no respiratory distress Auscultation: clear to auscultation bilaterally Cardio: Rate: tachycardic Rhythm: regular rhythm Heart sounds: no gallops, no murmurs and no rubs GI: Palpation (GI): Soft to palpation and Other GI palpation findings present ( Nontender) Auscultation: normal bowel sounds Neuro: General: confusion Extrem: General: No clubbing, No cyanosis and Yes edema (1+ bilateral) Objective Data Labs 12/15/23 05:15 12/15/23 05:15 Labs: Laboratory Results - last 24 hr 12/14/23 12/14/23 12/14/23 11:38 17:19 20:21 WBC 21.7 H RBC 2.52 L Hgb 8.3 L Hct 24.3 L MCV 96.4 MCH 32.9 MCHC 34.2 RDW 16.0 Plt Count 37 L MPV 12.5 H Immature Gran % (Auto) Cancelled Neut % (Auto) Cancelled Lymph % (Auto) Cancelled [place] % (Auto) Cancelled Eos % (Auto) Cancelled Baso % (Auto) Cancelled Lymph # (Auto) Cancelled [place] # (Auto) Cancelled Eos # (Auto) Cancelled Baso # (Auto) Cancelled Abs Immat Gran (auto) Cancelled Absolute Neuts (auto) Cancelled Absolute Nucleated RBC 0.090 H Nucleated RBC % (auto) 0.4 H Neutrophils % (Manual) 88 H Band Neutrophils % 0 L Lymphocytes % (Manual) 9 L Monocytes % (Manual) 3 Eosinophils % (Manual) Metamyelocytes % Abs Neuts (Manual) 19.1 H Lymphocytes # (Manual) 2.0 Monocytes # (Manual) 0.7 Eosinophils # (Manual) Metamyelocytes # Toxic Granulation PRESENT Toxic Vacuolation PRESENT [place]oh[place] Bodies PRESENT Platelet Estimate DECREASED Plt Morphology Comment NORM RBC Morphology NOTED Ovalocytes VBG pH VBG pCO2 VBG pO2 VBG HCO3 VBG O2 Saturation VBG Base Excess Sodium 137 Potassium 4.7 Chloride 83 L Carbon Dioxide 36 H Anion Gap 23 H BUN 93 H Creatinine 5.96 H* Estim Creat Clear Calc 7.0 Estimated GFR 7 POC Glucose 206 H 238 H Random Glucose 239 H Calcium 6.2 L Phosphorus 7.1 H Magnesium 2.0 Total Bilirubin 5.3 H AST 607 H ALT 749 H Alkaline Phosphatase 219 H Total Protein 4.8 L Albumin 3.4 L 12/14/23 12/15/23 12/15/23 20:29 00:16 05:15 WBC 20.9 H RBC 2.54 L Hgb 8.4 L Hct 24.6 L MCV 96.9 MCH 33.1 H MCHC 34.1 RDW 15.6 Plt Count 37 L MPV 12.6 H Immature Gran % (Auto) Cancelled Neut % (Auto) Cancelled Lymph % (Auto) Cancelled [place] % (Auto) Cancelled Eos % (Auto) Cancelled Baso % (Auto) Cancelled Lymph # (Auto) Cancelled [place] # (Auto) Cancelled Eos # (Auto) Cancelled Baso # (Auto) Cancelled Abs Immat Gran (auto) Cancelled Absolute Neuts (auto) Cancelled Absolute Nucleated RBC 0.110 H Nucleated RBC % (auto) 0.5 H Neutrophils % (Manual) 82 H Band Neutrophils % 1 L Lymphocytes % (Manual) 7 L Monocytes % (Manual) 8 Eosinophils % (Manual) 1 Metamyelocytes % 1 Abs Neuts (Manual) 17.3 H Lymphocytes # (Manual) 1.5 Monocytes # (Manual) 1.7 H Eosinophils # (Manual) 0.2 Metamyelocytes # 0.2 Toxic Granulation PRESENT Toxic Vacuolation Dohle Bodies Platelet Estimate DECREASED Plt Morphology Comment NORMAL RBC Morphology NOTED Ovalocytes 1+ (5-14) VBG pH 7.55 H 7.66 H* VBG pCO2 49 42 VBG pO2 61 41 VBG HCO3 43 H 47 H VBG O2 Saturation 89.0 70.0 VBG Base Excess 19.5 24.4 Sodium 140 Potassium 4.4 Chloride 84 L Carbon Dioxide 32 H Anion Gap 24 H BUN 103 H Creatinine 5.90 H* Estim Creat Clear Calc 7.1 Estimated GFR 7 POC Glucose 216 H Random Glucose 134 H Calcium 7.0 L D Phosphorus 6.1 H Magnesium 2.1 Total Bilirubin 5.2 H AST 431 H ALT 566 H Alkaline Phosphatase 221 H Total Protein 5.4 L Albumin 4.1 12/15/23 07:29 WBC RBC Hgb Hct MCV MCH MCHC RDW Plt Count MPV Immature Gran % (Auto) Neut % (Auto) Lymph % (Auto) [place] % (Auto) Eos % (Auto) Baso % (Auto) Lymph # (Auto) [place] # (Auto) Eos # (Auto) Baso # (Auto) Abs Immat Gran (auto) Absolute Neuts (auto) Absolute Nucleated RBC Nucleated RBC % (auto) Neutrophils % (Manual) Band Neutrophils % Lymphocytes % (Manual) Monocytes % (Manual) Eosinophils % (Manual) Metamyelocytes % Abs Neuts (Manual) Lymphocytes # (Manual) Monocytes # (Manual) Eosinophils # (Manual) Metamyelocytes # Toxic Granulation Toxic Vacuolation Dohle Bodies Platelet Estimate Plt Morphology Comment RBC Morphology Ovalocytes VBG pH VBG pCO2 VBG pO2 VBG HCO3 VBG O2 Saturation VBG Base Excess Sodium Potassium Chloride Carbon Dioxide Anion Gap BUN Creatinine Estim Creat Clear Calc Estimated GFR POC Glucose 110 Random Glucose Calcium Phosphorus Magnesium Total Bilirubin AST ALT Alkaline Phosphatase Total Protein Albumin Microbiology Microbiology Results: Microbiology 12/10/23 Unknown Urine Catheterized - Straight Catheter Urine Culture - Final Escherichia coli Streptococcus viridans group 12/10/23 13:56 Blood - Venous Blood Culture - Final Escherichia coli 12/10/23 12:53 Blood - Venous Blood Culture - Final Escherichia coli Progress Note: A&P Assessment and plan (1) Acute hypoxic respiratory failure: Status: Acute (2) E coli bacteremia: Status: Acute (3) UTI due to extended-spectrum beta lactamase (ESBL) producing Escherichia coli: Status: Acute (4) Ischemic hepatitis: Status: Acute (5) Toxic metabolic encephalopathy: Status: Acute (6) Atrial fibrillation with RVR: Status: Acute (7) Diabetes mellitus: Status: Acute (8) Hyperbilirubinemia: Status: Acute Plan Assessment: 88-year-old lady admitted with ESBL E coli bacteremia and septic shock with source Plan: Neuro: Overnight for 12/28/2023 with new left-sided facial drop on slowing of the speech. CT head with no acute findings. Not a TNK candidate Evaluated by Neurology. ?septic encephalopathy versus acute CVA. Cardiac: Septic shock, continue to titrate off pressor support as tolerated. Underlying AFib. Pulmonary: Acute hypoxic respiratory failure secondary to pulmonary edema from IV fluid resuscitation. Continue to titrate off supplemental oxygen as tolerated. Renal: Acute kidney injury likely secondary to septic shock. Oliguric. Nephrology service care appreciated. Continue to monitor renal indices and urine output. Endo: No acute issues. GI: Ischemic hepatitis secondary to septic shock, improving. Hyperbilirubinemia, will repeat right upper quadrant ultrasound. May need cholecystostomy. ID: [id number] E coli bacteremia with source. Continue Levaquin. Heme/Onc: No acute issues. Psych: No acute issues. Miscellaneous: No acute issues. Prophylaxis: Heparin Diet: Pureed/nectar thick Critical care time spent: 60 minutes Quality Stroke Does the patient have a stroke diagnosis?: No VTE Prior VTE?: No VTE Risk Level:: Medical - moderate - high VTE Device Contraindication: Treatment Not Indicated VTE Drug Contraindication: Treatment Not Indicated
[2023-12-15 11:44] LABS: Glucose, Whole Blood 132 mg/dL (60-115)
[2023-12-15] MEDS: Albuterol Sulfate (0.083%) 2.5 MG/3 ML VIAL.NEB INHALE (15:08)
[2023-12-15 16:22] LABS: Glucose, Whole Blood 132 mg/dL (60-115)
[2023-12-15 21:02] LABS: Glucose, Whole Blood 119 mg/dL (60-115)
[2023-12-15] MEDS: Albumin Human 25 % 100 ML IV ×2 (22:19→23:24)
[2023-12-15 22:43] LABS: Basophils Absolute Auto 0.2 X10*3/uL (0.0-0.2); Basophils Percent Auto 0.8 % (0-2); Eosinophils Percent Auto 0.1 % (0-4); Hematocrit 26.1 % (37.0-47.0); Hemoglobin 8.9 g/dl (12.0-16.0); Imm Gran Abs Auto 0.22 X10*3/uL (0.00-0.03); Imm Gran Pct Auto 1.1 % (0.0-0.4); Lymphocytes Absolute Auto 1.4 X10*3/uL (1.2-4.9); MANUAL DIFF FLAG SCAN; Mean Corpuscular HGB Conc 34.1 g/dl (31.0-35.0); Mean Corpuscular Hemoglobin 32.8 pg (27.0-33.0); Mean Corpuscular Volume 96.3 fL (80.0-98.0); Mean Platelet Volume 12.6 fL (9.4-12.3); Monocytes Absolute Auto 1.9 X10*3/uL (0.1-1.2); Monocytes Percent Auto 9.4 % (2-11); NRBC Pct Auto 0.5 /100WBC (0.0-0.2); Neutrophils Absolute Auto 16.2 x10*3/uL (2.0-8.3); Neutrophils Percent Auto 81.6 % (45-73); Red Blood Count 2.71 X10*6/uL (4.20-5.50); Red Cell Distribution Width 15.9 % (11.0-16.0); SCAN SMEAR FLAG 1; White Blood Count 19.9 X10*3/uL (4.8-10.8)
[2023-12-15 22:44] LABS: Platelet Count 40 X10*3/uL (160-400)
[2023-12-15] MEDS: Metoprolol Tartrate 5 MG/5 ML VIAL 2.5 MG IVPUSH ×2 (22:58→23:47)
[2023-12-15 22:59] LABS: SLIDE REVIEW VERIFIED
[2023-12-15 23:22] LABS: Alanine Aminotransferase 443 U/L (0-31); Albumin Level 3.5 g/dL (3.5-5.0); Alkaline Phosphatase 216 U/L (39-117); Anion Gap 24 (12-20); Aspartate Amino Transferase 293 U/L (5-31); Bilirubin Total 5.8 mg/dL (0.0-1.0); Calcium 7.1 mg/dL (8.4-10.2); Carbon Dioxide 38 mmol/L (22-29); Chloride 83 mmol/L (96-108); Estimated Glomerular Filt Rate 6; Glucose Random 105 mg/dL (60-115); Magnesium 1.9 mg/dL (1.6-2.6); Phosphorus 6.6 mg/dL (2.7-4.5); Potassium 4.7 mmol/L (3.3-5.1); Sodium 140 mmol/L (135-145)
[2023-12-15 23:23] LABS: Blood Urea Nitrogen 117 mg/dL (9-16)
--- NOTE | 2023-12-15 23:49 | P.ACPN_ITS ---
Advanced Care Planning Note Advanced Care Planning Note Time spent (in minutes): 20 Narrative: Spoke with the patient's , her daughter Yves (healthcare proxy) and her other son and [id number], they were all updated on the patient's condition as per their request, answers were given to all of their questions. They did want to clarify that there is a little bit of confusion about the goals of care, she certainly remains DNR, DNI and although initially they thought that she would want to have dialysis, in the past she the patient had stated that she would not wanted and sign these on a DNR form and her power of administrative support technician. At this point they are considering that they would respect their wishes, however there also 2nd guessing themselves for if this was the only thing that might get her better, they questioned that this would be something that they may want to pursue but they will talk to the patient herself tomorrow morning if she was to worsen for this to be reconsidered otherwise they would simply allow nature to take its course, however again this is not a final decision. Problems Discussed (1) Acute hypoxic respiratory failure: (2) E coli bacteremia: (3) UTI due to extended-spectrum beta lactamase (ESBL) producing Escherichia coli: (4) Ischemic hepatitis: (5) Toxic metabolic encephalopathy: (6) Atrial fibrillation with RVR: (7) Diabetes mellitus: (8) Hyperbilirubinemia:
[2023-12-16] VITALS (15 sets, daily range): BP systolic 92–134; BP diastolic 44–72; PULSE 88–141; RESP 26–34; TEMP 36.3–37.4; O2SAT 87–99; BMI 30.7
[2023-12-16 05:18] LABS: Basophils Absolute Auto 0.1 X10*3/uL (0.0-0.2); Basophils Percent Auto 0.6 % (0-2); Eosinophils Absolute Auto 0.1 X10*3/uL (0.0-0.4); Eosinophils Percent Auto 0.4 % (0-4); Hematocrit 23.7 % (37.0-47.0); Hemoglobin 8.1 g/dl (12.0-16.0); Imm Gran Abs Auto 0.24 X10*3/uL (0.00-0.03); Imm Gran Pct Auto 1.3 % (0.0-0.4); Lymphocytes Absolute Auto 1.4 X10*3/uL (1.2-4.9); Lymphocytes Percent Auto 7.9 % (20-40); MANUAL DIFF FLAG SCAN; Mean Corpuscular HGB Conc 34.2 g/dl (31.0-35.0); Mean Corpuscular Hemoglobin 32.9 pg (27.0-33.0); Mean Corpuscular Volume 96.3 fL (80.0-98.0); Mean Platelet Volume 12.9 fL (9.4-12.3); Monocytes Absolute Auto 1.5 X10*3/uL (0.1-1.2); Monocytes Percent Auto 8.4 % (2-11); NRBC Pct Auto 0.3 /100WBC (0.0-0.2); Neutrophils Absolute Auto 14.8 x10*3/uL (2.0-8.3); Neutrophils Percent Auto 81.4 % (45-73); Red Blood Count 2.46 X10*6/uL (4.20-5.50); Red Cell Distribution Width 15.7 % (11.0-16.0); SCAN SMEAR FLAG 1; White Blood Count 18.2 X10*3/uL (4.8-10.8)
[2023-12-16 05:20] LABS: Platelet Count 36 X10*3/uL (160-400)
[2023-12-16 05:26] LABS: VBG Base Excess 23.2 mmol/L; VBG HCO3 48 mmol/L (22-26); VBG pCO2 54 mmHg; VBG pH 7.55 (7.32-7.43); VBG pO2 46 mmHg
[2023-12-16 05:28] LABS: Venous Blood Gas Refer to POC result
[2023-12-16 05:39] LABS: Alanine Aminotransferase 353 U/L (0-31); Alkaline Phosphatase 182 U/L (39-117); Anion Gap 24 (12-20); Aspartate Amino Transferase 228 U/L (5-31); Calcium 7.3 mg/dL (8.4-10.2); Carbon Dioxide 38 mmol/L (22-29); Chloride 85 mmol/L (96-108); Creatinine Clr Calc Pharmacy 5.5; Estimated Glomerular Filt Rate 5; Glucose Random 104 mg/dL (60-115); Magnesium 2.1 mg/dL (1.6-2.6); Phosphorus 7.3 mg/dL (2.7-4.5); Potassium 4.9 mmol/L (3.3-5.1); Sodium 142 mmol/L (135-145); Total Protein 5.2 g/dL (6.5-8.0)
[2023-12-16 05:51] LABS: Blood Urea Nitrogen 123 mg/dL (9-16)
--- NOTE | 2023-12-16 08:24 | P.PNCC_ITS ---
Subjective Subjective Date of Service: 12/16/23 Critical Care Time (minutes): 60 Physical Exam 2 Vital Signs: Vital Signs: Last Vital Signs Temp 98.8 F 12/16/23 07:00 Pulse 123 H 12/16/23 07:00 Resp 31 H 12/16/23 07:00 BP 112/44 L 12/16/23 07:00 Pulse Ox 97 12/16/23 07:00 O2 Del Method Nasal Cannula 12/16/23 07:00 O2 Flow Rate 1 12/16/23 07:00 BMI result Body Mass Index 30.7 Const: General: cooperative, healthy appearing, comfortable, well developed, alert and awake HEENT: Head: Yes normal to inspection, Yes normocephalic and Yes atraumatic Eyes: General: appearance normal, both eyes and all related structures Neck: Neck: Yes normal visual inspection, Yes full ROM, Yes no meningeal signs, Yes trachea midline and Yes supple Chest: Chest palpation & inspection: normal inspection of the chest Resp: Other: some appreciable rales; no appreciable rhonchi, wheezing Cardio: Rate: regular rate Rhythm: abnormal rhythm GI: Inspection: Yes normal to inspection and No distended Palpation (GI): S oft to palpation, not firm, nontender, no guarding and not rigid : External Female Exam: normal external appearance Skin: General skin exam: no rashes or lesions noted Neuro: General: tone normal, moves all extremities, no meningeal signs and no focal motor deficits Extrem: Other: appreciable anasarca General: Yes full ROM and Yes capillary refill normal Psych: Appearance: grossly normal Objective Data Labs 12/16/23 05:08 12/16/23 05:08 Labs: Laboratory Results - last 24 hr 12/15/23 12/15/23 12/15/23 05:15 11:37 16:18 WBC RBC Hgb Hct MCV MCH MCHC RDW Plt Count MPV Immature Gran % (Auto) Neut % (Auto) Lymph % (Auto) [place] % (Auto) Eos % (Auto) Baso % (Auto) Lymph # (Auto) [place] # (Auto) Eos # (Auto) Baso # (Auto) Abs Immat Gran (auto) Absolute Neuts (auto) Absolute Nucleated RBC Nucleated RBC % (auto) Smear Tech's Comments VBG pH VBG pCO2 VBG pO2 VBG HCO3 VBG O2 Saturation VBG Base Excess Sodium 140 Potassium 4.4 Chloride 84 L Carbon Dioxide 32 H Anion Gap 24 H BUN 103 H Creatinine 5.90 H* Estim Creat Clear Calc 7.1 Estimated GFR 7 POC Glucose 132 H 132 H Random Glucose 134 H Calcium 7.0 L D Phosphorus 6.1 H Magnesium 2.1 Total Bilirubin 5.2 H AST 431 H ALT 566 H Alkaline Phosphatase 221 H Total Protein 5.4 L Albumin 4.1 12/15/23 12/15/23 12/16/23 20:57 22:33 05:08 WBC 19.9 H 18.2 H RBC 2.71 L 2.46 L Hgb 8.9 L 8.1 L Hct 26.1 L 23.7 L MCV 96.3 96.3 MCH 32.8 32.9 MCHC 34.1 34.2 RDW 15.9 15.7 Plt Count 40 L 36 L MPV 12.6 H 12.9 H Immature Gran % (Auto) 1.1 H 1.3 H Neut % (Auto) 81.6 H 81.4 H Lymph % (Auto) 7.0 L 7.9 L [place] % (Auto) 9.4 8.4 Eos % (Auto) 0.1 0.4 Baso % (Auto) 0.8 0.6 Lymph # (Auto) 1.4 1.4 [place] # (Auto) 1.9 H 1.5 H Eos # (Auto) 0.0 0.1 Baso # (Auto) 0.2 0.1 Abs Immat Gran (auto) 0.22 H 0.24 H Absolute Neuts (auto) 16.2 H 14.8 H Absolute Nucleated RBC 0.090 H 0.050 H Nucleated RBC % (auto) 0.5 H 0.3 H Smear Tech's Comments VERIFIED VBG pH VBG pCO2 VBG pO2 VBG HCO3 VBG O2 Saturation VBG Base Excess Sodium 140 142 Potassium 4.7 4.9 Chloride 83 L 85 L Carbon Dioxide 38 H 38 H Anion Gap 24 H 24 H BUN 117 H 123 H Creatinine 7.01 H* 7.55 H* Estim Creat Clear Calc 6.0 5.5 Estimated GFR 6 5 POC Glucose 119 H Random Glucose 105 104 Calcium 7.1 L 7.3 L Phosphorus 6.6 H 7.3 H Magnesium 1.9 2.1 Total Bilirubin 5.8 H 6.0 H AST 293 H 228 H ALT 443 H 353 H Alkaline Phosphatase 216 H 182 H Total Protein 5.0 L 5.2 L Albumin 3.5 4.0 12/16/23 05:17 WBC RBC Hgb Hct MCV MCH MCHC RDW Plt Count MPV Immature Gran % (Auto) Neut % (Auto) Lymph % (Auto) [place] % (Auto) Eos % (Auto) Baso % (Auto) Lymph # (Auto) [place] # (Auto) Eos # (Auto) Baso # (Auto) Abs Immat Gran (auto) Absolute Neuts (auto) Absolute Nucleated RBC Nucleated RBC % (auto) Smear Tech's Comments VBG pH 7.55 H VBG pCO2 54 VBG pO2 46 VBG HCO3 48 H VBG O2 Saturation 76.0 VBG Base Excess 23.2 Sodium Potassium Chloride Carbon Dioxide Anion Gap BUN Creatinine Estim Creat Clear Calc Estimated GFR POC Glucose Random Glucose Calcium Phosphorus Magnesium Total Bilirubin AST ALT Alkaline Phosphatase Total Protein Albumin Microbiology Microbiology Results: Microbiology 12/10/23 Unknown Urine Catheterized - Straight Catheter Urine Culture - Final Escherichia coli Streptococcus viridans group 12/10/23 13:56 Blood - Venous Blood Culture - Final Escherichia coli 12/10/23 12:53 Blood - Venous Blood Culture - Final Escherichia coli Progress Note: A&P Assessment and plan (1) UTI due to extended-spectrum beta lactamase (ESBL) producing Escherichia coli: Status: Acute (2) E coli bacteremia: Status: Acute (3) Acute hypoxic respiratory failure: Status: Acute (4) Diabetes mellitus: Status: Acute (5) Atrial fibrillation with RVR: Status: Acute Plan Patient is a 88 Y F with metabolic syndrome, atrial fibrillation on apixaban, aortic stenosis s/p TAVR, p/w encephalopathy, found to be hypotensive, urinary tract infection, possible acute cholecystitis, admitted ICU; ICU course c/b acute renal failure N: encephalopathy, likely toxic/metabolic CV: septic shock, improved; atrial fibrillation, previously on apixaban R: acute hypoxic respiratory failure d/t pulmonary edema; wean oxygen as tolerated GI: possible acute cholecystitis, ischemic hepatitis; to continue to monitor closely : acute renal failure; to continue to mointor renal indicies; to re-engage patient/family re: possible hemodialysis H: acute on chronic thrombocytopenia; to consider chemical DVT prophylaxis if/when platelets >100 ID: urinary tract infection, possible acute cholecystitis, c/b bacteremia w/ ESBL; levofloxacin E: no acute issues P: no acute issues Quality Stroke Does the patient have a stroke diagnosis?: No VTE Prior VTE?: No VTE Risk Level:: Medical - moderate - high VTE Device Contraindication: N/A - Device Ordered VTE Drug Contraindication: Treatment Not Tolerated
[2023-12-16] MEDS: levoFLOXacin/D5W 500 MG/100 ML PIGGYBACK 100 MG IV (08:45)
[2023-12-16] MEDS: Nystatin Oral Susp 500,000 UNIT/5 ML ORAL.SUSP 400000 UNIT BUCCAL (08:46)
--- NOTE | 2023-12-16 09:43 | W.MHC.ACPN ---
Advanced Care Planning Note Advanced Care Planning Note Discussed with: family member(s) Time spent (in minutes): 15 Narrative: I introduced myself to Ms. Leyva and daughter. We discusesd Ms. Leyva ICU course, and offered any clarifications. Ms. Leyva and daughter expressed understanding of her disease course. At this time, Ms. Leyva appeared somnolent, and unable to participate in meaningful conversation. They stated that Ms. Leyva has discussed her wishes at the end of life at length with her family, and that she would not want hemodialysis. We discussed comfort-focused care. At this time, Ms. Leyva family believes her philosophy of care should be transitioned to comfort-focused care. Problems Discussed (1) UTI due to extended-spectrum beta lactamase (ESBL) producing Escherichia coli: (2) E coli bacteremia: (3) Acute hypoxic respiratory failure: (4) Diabetes mellitus: (5) Atrial fibrillation with RVR:
[2023-12-16] MEDS: Scopolamine 1.5 MG PATCH.TD.3 TRANSDERMA (10:06)
[2023-12-16] MEDS: Glycopyrrolate 0.2 MG/ML VIAL IVPUSH (10:07)
--- NOTE | 2023-12-16 10:10 | MHC.SLORD ---
Speech Language Pathology Order Status: HOT BLAST WORKER arrived for repeat-bedside swallow exam. Per RN, not appropriate at this time as family is currently discussing patient's goals of care. RN to contact HOT BLAST WORKER before 3pm should BDE be warranted today.
[2023-12-16] MEDS: HYDROmorphone HCl 0.5 MG/0.5 ML SYRINGE 0.25 MG IVPUSH (11:30)
[2023-12-16] MEDS: Morphine Sulfate/NS 100 MG/100 ML PLAST..BAG IVCONT (11:31)
[2023-12-16] MEDS: Morphine Sulfate 2 MG/ML CARTRIDGE 0.5 MG IVPUSH (12:13)
[2023-12-16] MEDS: LORazepam 2 MG/ML VIAL 0.5 MG IVPUSH (12:13)
--- NOTE | 2023-12-16 12:43 | P.DN_ITS ---
Discharge Sum: Prov Provider Primary care physician: Unknown Physician Consults: 12/16/23 09:39 Consult to Inseam Trimming Machine Operator Stat Comment: Pronouncing clinician: Sarah Santos Discharge Sum: Diag Contributing Factors (1) UTI due to extended-spectrum beta lactamase (ESBL) producing Escherichia coli: (2) E coli bacteremia: (3) Acute hypoxic respiratory failure: (4) Renal failure, acute: (5) Diabetes mellitus: (6) Atrial fibrillation with RVR: Discharge Sum: Summary Date and Time Date of admission: 12/10/23 16:05 Summary Details: Ms. Reyes was a 88 Y F with metabolic syndrome, atrial fibrillation on apixaban, and aortic stenosis status post TAVR who initially presented with encephalopathy to the emergency department on 12/09. Ms Reyes was found to have a urinary tract infection, possible acute cholecystitis, and hypotensive, and was subsequently admitted to the ICU. Ms. Reyes' hypotension improved, though her ICU course was complicated by acute renal failure and hepatic insufficiency. Ms. Reyes' wishes were to not pursue hemodialysis. On 12/15, Ms. Reyes was transitioned to comfort-focused care. She later that day, with her and daughter at her bedside. Additional Data Confirmation of as documented by pronouncing clinician: no pulse, no respirations, no heart sounds and pupils fixed and dilated Family: at bedside Attending physician: Shade Becerra MD
== END 2023-12-16 12:21 | disposition expired | DRG 871 ==
LOC: HO.ED 16:20 → HO.EDOVER 16:40 → HO.ICU 16:48
PROVIDERS: Physician Assistant Medical; Admitting Provider Internal Medicine Pulmonary Disease; Emergency Provider Emergency Medicine; Visit Provider Internal Medicine Pulmonary Disease
DX: A41.9 Sepsis, unspecified organism (principal); G92.8 Other toxic encephalopathy; J96.01 Acute respiratory failure with hypoxia; R65.21 Severe sepsis with septic shock; N17.0 Acute kidney failure with tubular necrosis; K72.00 Acute and subacute hepatic failure without coma; J81.0 Acute pulmonary edema; N39.0 Urinary tract infection, site not specified; I48.20 Chronic atrial fibrillation, unspecified; Z16.12 Extended spectrum beta lactamase (ESBL) resistance; K80.00 Calculus of gallbladder with acute cholecystitis without obstruction; R29.810 Facial weakness; Z66 Do not resuscitate; D69.6 Thrombocytopenia, unspecified; R47.1 Dysarthria and anarthria; I10 Essential (primary) hypertension; Z95.2 Presence of prosthetic heart valve; E11.9 Type 2 diabetes mellitus without complications; B96.20 Unspecified Escherichia coli [E. coli] as the cause of diseases classified elsewhere; Z20.822 Contact with and (suspected) exposure to COVID-19; Z79.01 Long term (current) use of anticoagulants; Z79.899 Other long term (current) drug therapy
CPT/HCPCS: 0241U; 36415; 70450; 71045; 74176; 76705; 80048; 80053; 80061; 80076; 81001; 82010; 82272; 82803; 82947; 83605; 83690; 83735; 83880; 84100; 84484; 85007; 85025; 85027; 85610; 86850; 86900; 86901; 87040; 87077; 87086; 87088; 87186; 87205; 87493; 92526; 92610; 93005; 93306; 93880; 99285; C1758; J0613; J0696; J1160; J1170; J1596; J1644; J1940; J1956; J2060; J2270; J2371; J2405; J2543; J2598; J7120; P9047; Q9957

== ENCOUNTER → 2023-12-10 12:39 | Outpatient (BNV) | payer MEDICARE, BC, SELFPAY | PROVIDERS: Emergency Provider Emergency Medicine; Visit Provider Internal Medicine Cardiovascular Disease | DX: R94.31 Abnormal electrocardiogram [ECG] [EKG] (principal) | CPT/HCPCS: 93010 ==

== ENCOUNTER → 2023-12-10 13:42 | Outpatient (BNV) | payer MEDICARE, BC, SELFPAY | PROVIDERS: Emergency Provider Emergency Medicine; Visit Provider Internal Medicine Pulmonary Disease | DX: J96.01 Acute respiratory failure with hypoxia (principal); R78.81 Bacteremia; B96.20 Unspecified Escherichia coli [E. coli] as the cause of diseases classified elsewhere; N39.0 Urinary tract infection, site not specified; B96.29 Other Escherichia coli [E. coli] as the cause of diseases classified elsewhere; Z16.12 Extended spectrum beta lactamase (ESBL) resistance; K72.00 Acute and subacute hepatic failure without coma; G92.8 Other toxic encephalopathy; I48.91 Unspecified atrial fibrillation; E11.9 Type 2 diabetes mellitus without complications; E80.6 Other disorders of bilirubin metabolism; N17.9 Acute kidney failure, unspecified | CPT/HCPCS: 99291 ==

== ENCOUNTER 2023-12-10 16:05 | Outpatient (BNV) | payer MEDICARE, BC, SELFPAY | END 2023-12-12 07:00 | PROVIDERS: Admitting Provider Internal Medicine Pulmonary Disease; Emergency Provider Emergency Medicine; Visit Provider Internal Medicine Cardiovascular Disease | DX: I35.1 Nonrheumatic aortic (valve) insufficiency (principal); Z95.3 Presence of xenogenic heart valve | CPT/HCPCS: 93306 ==

== ENCOUNTER → 2023-12-10 16:05 | Outpatient (BNV) | payer MEDICARE, BC, SELFPAY | PROVIDERS: Admitting Provider Internal Medicine Pulmonary Disease; Emergency Provider Emergency Medicine; Visit Provider Physician Assistant Medical | DX: N39.0 Urinary tract infection, site not specified (principal); B96.29 Other Escherichia coli [E. coli] as the cause of diseases classified elsewhere; Z16.12 Extended spectrum beta lactamase (ESBL) resistance; R78.81 Bacteremia; B96.20 Unspecified Escherichia coli [E. coli] as the cause of diseases classified elsewhere; J96.01 Acute respiratory failure with hypoxia; E11.9 Type 2 diabetes mellitus without complications; I48.91 Unspecified atrial fibrillation; A41.9 Sepsis, unspecified organism; R65.21 Severe sepsis with septic shock | CPT/HCPCS: 36556; 99238; 99291; 99497 ==

== ENCOUNTER → 2023-12-10 16:05 | Outpatient (BNV) | payer MEDICARE, BC, SELFPAY | PROVIDERS: Admitting Provider Internal Medicine Pulmonary Disease; Emergency Provider Emergency Medicine; Visit Provider Psychiatry & Neurology Neurology | DX: G93.41 Metabolic encephalopathy (principal); G92.8 Other toxic encephalopathy; I67.82 Cerebral ischemia | CPT/HCPCS: 99222 ==